=== PATIENT | female | born 1945 | race Caucasian/White ===

== ENCOUNTER → 2017-03-15 | Outpatient (CLI) | payer OTHER ==
[~2017-03-15] MED LIST: ALBU3IS INH; ALBU90OI61 INH; ALPR1 PO; AZIT250 PO; CEFU500T30 PO; DULERA 100 MCG/13 GM INH; IRON 100 PLUS1 EACH PO; LEVFLO500 PO; LEVSOD75 PO; LISI20 PO; OMEPRAZOLE MAGN20 MG PO; Oxybutynin Chlo10 MG PO; PRED20 PO; PRED5 PO; Prinivil10 MG PO; SACC250C PO; SERT50 PO; TYLECOD3 PO
[2017-03-17 14:03] LABS: Stool Occult Bld Immuno 1 Positive (NEGATIVE); Stool Occult Bld Immuno 2 Positive (NEGATIVE)
== END | disposition home or self-care (01) ==
LOC: LAB 07:30
PROVIDERS: Internal Medicine Gastroenterology
DX: D50.9 Iron deficiency anemia, unspecified (principal); Z86.010 Personal history of colon polyps; Z83.71 Family history of colonic polyps
CPT/HCPCS: 82274

== ENCOUNTER 2017-03-21 09:38 | Day surgery (SDC) | payer OTHER ==
[~2017-03-21] VITALS: Ht 154.9 cm; Wt 84.4 kg
[~2017-03-21 09:38] MED LIST changes: -ALBU3IS INH; -AZIT250 PO; -CEFU500T30 PO; -DULERA 100 MCG/13 GM INH; -LEVFLO500 PO; -PRED20 PO; -PRED5 PO; -Prinivil10 MG PO; -SACC250C PO
[2018-01-04] MEDS ORDERED: ALBU3IS INH (15:42)
[2018-01-04] MEDS ORDERED: AZIT250 PO (15:44)
[2018-01-04] MEDS ORDERED: CEFU500T30 PO (15:46)
[2018-01-04] MEDS ORDERED: DULERA 100 MCG/13 GM INH (15:46)
[2018-01-04] MEDS ORDERED: PRED20 PO (15:50)
== END 2017-03-21 12:42 | disposition home or self-care (01) ==
LOC: ORSCSDS 09:38
PROVIDERS: Internal Medicine Gastroenterology
PROC: 0DB88ZX Excision of Small Intestine, Via Natural or Artificial Opening Endoscopic, Diagnostic (ICD-10-PCS; principal; 2017-03-21 11:00)
PROC: 0DB58ZX Excision of Esophagus, Via Natural or Artificial Opening Endoscopic, Diagnostic (ICD-10-PCS; principal; 2017-03-21 11:00)
PROC: 0DJD8ZZ Inspection of Lower Intestinal Tract, Via Natural or Artificial Opening Endoscopic (ICD-10-PCS; principal; 2017-03-21 11:00)
DX: D50.9 Iron deficiency anemia, unspecified (principal); K44.9 Diaphragmatic hernia without obstruction or gangrene; Z86.010 Personal history of colon polyps; K21.9 Gastro-esophageal reflux disease without esophagitis; K57.30 Diverticulosis of large intestine without perforation or abscess without bleeding; Z87.11 Personal history of peptic ulcer disease; R19.5 Other fecal abnormalities; F17.210 Nicotine dependence, cigarettes, uncomplicated; Z79.899 Other long term (current) drug therapy; K29.60 Other gastritis without bleeding
CPT/HCPCS: 87081; 88305; J1980; J7120

== ENCOUNTER → 2017-09-19 | Outpatient (CLI) | payer OTHER ==
[2017-09-21 14:43] LABS: Stool Occult Bld Immuno 1 Negative (NEGATIVE)
[2017-09-21 14:44] LABS: Stool Occult Bld Immuno 2 Positive (NEGATIVE)
== END | disposition home or self-care (01) ==
LOC: LAB 10:04 → LAB SHORT 10:04 → LAB FUT 07-13 10:45 → EDSTATUS 07-13 10:45
PROVIDERS: Internal Medicine Gastroenterology
DX: D50.9 Iron deficiency anemia, unspecified (principal)
CPT/HCPCS: 82274

== ENCOUNTER 2017-10-28 13:36 | Inpatient (IN) | payer OTHER ==
[~2017-10-28] VITALS: Ht 154.9 cm; Wt 95.0 kg
[2017-10-28 14:13] LABS: PCO2 Arterial 50.9 mmHg (35-45); PO2 Arterial 63.7 mmHg (80-100); pH Blood Arterial 7.28 (7.35-7.45)
[2017-10-28 14:16] LABS: Hematocrit 23.5 % (33.0-51.0); Hemoglobin 6.7 g/dL (11.5-16.0); Mean Corpuscular HGB Conc 28.5 g/dL (31.5-36.5); Mean Corpuscular Volume 77 fL (80-100); Mean Platelet Volume 8.7 fL (9.1-12.4); NRBC ABSOLUTE 0.03 K/mm3 (0.00-0.02); NRBC Auto 0.1 /100 WBC (0.0-0.2); Platelet Count 423 K/mm3 (150-400); RDW Coefficient Variation 18.7 % (11.7-14.2); RDW Standard Deviation 52.2 fL (35.1-46.3); Red Blood Cell Count 3.05 M/mm3 (3.80-5.20)
[2017-10-28 14:32] LABS: Alanine Aminotransfer (ALT/SGP 17 U/L (12-78); Albumin, Blood 2.2 g/dL (3.4-5.0); Albumin/Globulin Ratio 0.4 (0.8-1.8); Alk Phos 94 U/L (50-136); Anion Gap 9 mmol/L (6-16); Aspartate Aminotrans (AST/SGOT 14 U/L (12-37); Bilirubin, Total 0.2 mg/dL (0.1-1.0); Blood Urea Nitrogen 58 mg/dL (8-24); Bun/Creatinine Ratio 25.3 (12.0-20.0); CO2, Blood 24 mmol/L (21-32); Calcium, Blood 9.2 mg/dL (8.5-10.1); Chloride, Blood 104 mmol/L (98-108); Creatinine, Blood 2.29 mg/dL (0.40-1.00); Globulin, Blood 5.1 g/dL (2.2-4.0); Glomerular Filtration Rate 22 (60-); Glucose, Blood 179 mg/dL (70-99); Potassium, Blood 5.6 mmol/L (3.5-5.5); Sodium, Blood 137 mmol/L (136-145); Total Protein, Blood 7.3 g/dL (6.4-8.2)
[2017-10-28 14:33] LABS: Influenza A Negative (NEGATIVE); Influenza B Negative (NEGATIVE)
[2017-10-28 14:33] LABS: Troponin I <0.015 ng/mL (0.000-0.040)
[2017-10-28 15:16] LABS: BAND PERCENT MAN 10 % (0-8); BASOPHILS PERCENT MAN 0 % (0-2); EOSINOPHILS PERCENT MAN 0 % (0-6); LYMPHOCYTES ABSOLUTE MAN 0.42 K/mm3 (0.84-5.20); LYMPHOCYTES PERCENT MAN 2 % (21-46); MONOCYTES ABSOLUTE MAN 0.21 K/mm3 (0.16-1.47); MONOCYTES PERCENT MAN 1 % (4-13); NEUTROPHILS ABSOLUTE MAN 20.46 K/mm3 (1.96-9.15); SEG NEUTROPHILS PERCENT MAN 87 % (41-73); TOTAL CELLS COUNTED 100
[2017-10-28] MEDS ORDERED: PRED5 PO (15:28)
[2017-10-28] MEDS ORDERED: Prinivil10 MG PO (15:30)
[2017-10-28 21:40] LABS: Hematocrit 23.7 % (33.0-51.0)
[2017-10-29 01:21] LABS: Bilirubin, Urine Neg (Neg); Blood, Urine Neg (Neg); Glucose Qualitative, Urine Neg (Neg); Ketones, Urine Neg (Neg); Leukocyte Esterase, Urine Neg (Neg); Nitrite, Urine Neg (Neg); Protein, Urine 2+ (Neg); Urobilinogen, Urine NORM (Normal)
[2017-10-29 01:33] LABS: Appearance, Urine Hazy (Clear); Bacteria Few /hpf; Color, Urine Yellow (P-Yellow); Red Blood Cells, Urine Not Seen /hpf (0-2); Squamous Epithelial Cells Few /hpf (Few); White Blood Cells, Urine Rare /hpf (0-5)
[2017-10-29 01:34] LABS: Amorphous Heavy (0-Heavy)
[2017-10-29 04:39] LABS: Hematocrit 24.7 % (33.0-51.0); Hemoglobin 7.2 g/dL (11.5-16.0); Mean Corpuscular HGB 22.7 pg (26.0-34.0); Mean Corpuscular HGB Conc 29.1 g/dL (31.5-36.5); Mean Corpuscular Volume 78 fL (80-100); Mean Platelet Volume 9.1 fL (9.1-12.4); NRBC ABSOLUTE 0.08 K/mm3 (0.00-0.02); NRBC Auto 0.4 /100 WBC (0.0-0.2); Platelet Count 370 K/mm3 (150-400); RDW Coefficient Variation 18.7 % (11.7-14.2); RDW Standard Deviation 52.2 fL (35.1-46.3); Red Blood Cell Count 3.17 M/mm3 (3.80-5.20); White Blood Cell Count 19.62 K/mm3 (4.00-11.30)
[2017-10-29 04:56] LABS: Anion Gap 8 mmol/L (6-16); Blood Urea Nitrogen 51 mg/dL (8-24); Bun/Creatinine Ratio 28.8 (12.0-20.0); CO2, Blood 24 mmol/L (21-32); Calcium, Blood 8.5 mg/dL (8.5-10.1); Chloride, Blood 108 mmol/L (98-108); Creatinine, Blood 1.77 mg/dL (0.40-1.00); Glomerular Filtration Rate 30 (60-); Glucose, Blood 139 mg/dL (70-99); Sodium, Blood 140 mmol/L (136-145); Vancomycin, Random 8.6 ug/mL
[2017-10-29 05:04] LABS: BAND PERCENT MAN 3 % (0-8); BASOPHILS PERCENT MAN 0 % (0-2); EOSINOPHILS PERCENT MAN 0 % (0-6); LYMPHOCYTES % ATYPICAL MANUAL 1 % (0-0); LYMPHOCYTES ABSOLUTE MAN 0.39 K/mm3 (0.84-5.20); LYMPHOCYTES PERCENT MAN 1 % (21-46); MONOCYTES ABSOLUTE MAN 0.39 K/mm3 (0.16-1.47); MONOCYTES PERCENT MAN 2 % (4-13); MYELOCYTE ABSOLUTE MAN 0.39 K/mm3 (0.00-0.00); MYELOCYTE PERCENT MAN 2 % (0-0); NEUTROPHILS ABSOLUTE MAN 18.44 K/mm3 (1.96-9.15); SEG NEUTROPHILS PERCENT MAN 91 % (41-73); TOTAL CELLS COUNTED 100
[2017-10-29 05:28] LABS: PCO2 Arterial 52.4 mmHg (35-45); PO2 Arterial 63.1 mmHg (80-100); pH Blood Arterial 7.28 (7.35-7.45)
[2017-10-30 04:45] LABS: Hemoglobin 7.4 g/dL (11.5-16.0); Mean Corpuscular HGB 23.1 pg (26.0-34.0); Mean Corpuscular HGB Conc 29.6 g/dL (31.5-36.5); Mean Corpuscular Volume 78 fL (80-100); Mean Platelet Volume 8.9 fL (9.1-12.4); NRBC ABSOLUTE 0.06 K/mm3 (0.00-0.02); NRBC Auto 0.3 /100 WBC (0.0-0.2); Platelet Count 357 K/mm3 (150-400); RDW Coefficient Variation 19.1 % (11.7-14.2); RDW Standard Deviation 52.2 fL (35.1-46.3); White Blood Cell Count 21.53 K/mm3 (4.00-11.30)
[2017-10-30 05:08] LABS: Anion Gap 7 mmol/L (6-16); Blood Urea Nitrogen 41 mg/dL (8-24); Bun/Creatinine Ratio 32.8 (12.0-20.0); CO2, Blood 27 mmol/L (21-32); Calcium, Blood 8.6 mg/dL (8.5-10.1); Chloride, Blood 107 mmol/L (98-108); Creatinine, Blood 1.25 mg/dL (0.40-1.00); Glomerular Filtration Rate 45 (60-); Glucose, Blood 135 mg/dL (70-99); Potassium, Blood 3.9 mmol/L (3.5-5.5); Sodium, Blood 141 mmol/L (136-145)
[2017-10-30 05:10] LABS: BAND PERCENT MAN 12 % (0-8); BASOPHILS PERCENT MAN 0 % (0-2); EOSINOPHILS PERCENT MAN 0 % (0-6); LYMPHOCYTES ABSOLUTE MAN 0.21 K/mm3 (0.84-5.20); LYMPHOCYTES PERCENT MAN 1 % (21-46); MONOCYTES PERCENT MAN 0 % (4-13); MYELOCYTE ABSOLUTE MAN 0.21 K/mm3 (0.00-0.00); MYELOCYTE PERCENT MAN 1 % (0-0); NEUTROPHILS ABSOLUTE MAN 21.09 K/mm3 (1.96-9.15); SEG NEUTROPHILS PERCENT MAN 86 % (41-73); TOTAL CELLS COUNTED 100
[2017-10-30 05:15] LABS: Vancomycin, Random 12.2 ug/mL
[2017-10-31 05:58] LABS: Hematocrit 27.8 % (33.0-51.0); Hemoglobin 8.3 g/dL (11.5-16.0); Mean Corpuscular HGB 23.5 pg (26.0-34.0); Mean Corpuscular HGB Conc 29.9 g/dL (31.5-36.5); Mean Corpuscular Volume 79 fL (80-100); Mean Platelet Volume 8.6 fL (9.1-12.4); NRBC ABSOLUTE 0.03 K/mm3 (0.00-0.02); NRBC Auto 0.1 /100 WBC (0.0-0.2); Platelet Count 332 K/mm3 (150-400); RDW Coefficient Variation 20.8 % (11.7-14.2); Red Blood Cell Count 3.53 M/mm3 (3.80-5.20); White Blood Cell Count 21.31 K/mm3 (4.00-11.30)
[2017-10-31 06:16] LABS: Anion Gap 7 mmol/L (6-16); Blood Urea Nitrogen 30 mg/dL (8-24); Bun/Creatinine Ratio 31.2 (12.0-20.0); CO2, Blood 30 mmol/L (21-32); Chloride, Blood 106 mmol/L (98-108); Creatinine, Blood 0.96 mg/dL (0.40-1.00); Glomerular Filtration Rate >60 (60-); Glucose, Blood 122 mg/dL (70-99); Potassium, Blood 3.7 mmol/L (3.5-5.5); Sodium, Blood 143 mmol/L (136-145)
[2017-10-31 06:59] LABS: BAND PERCENT MAN 1 % (0-8); BASOPHILS ABSOLUTE MAN 0.21 K/mm3 (0.00-0.23); BASOPHILS PERCENT MAN 1 % (0-2); EOSINOPHILS PERCENT MAN 0 % (0-6); LYMPHOCYTES ABSOLUTE MAN 0.85 K/mm3 (0.84-5.20); LYMPHOCYTES PERCENT MAN 4 % (21-46); METAMYELOCYTE ABSOLUTE MAN 0.42 K/mm3 (0.00-0.00); METAMYELOCYTE PERCENT MAN 2 % (0-0); MONOCYTES ABSOLUTE MAN 1.06 K/mm3 (0.16-1.47); MONOCYTES PERCENT MAN 5 % (4-13); NEUTROPHILS ABSOLUTE MAN 18.75 K/mm3 (1.96-9.15); SEG NEUTROPHILS PERCENT MAN 87 % (41-73); TOTAL CELLS COUNTED 100
[2017-11-01 04:51] LABS: PCO2 Arterial 54.4 mmHg (35-45); PO2 Arterial 75.9 mmHg (80-100); pH Blood Arterial 7.41 (7.35-7.45)
[2017-11-01 04:56] LABS: Hematocrit 27.1 % (33.0-51.0); Mean Corpuscular HGB 23.5 pg (26.0-34.0); Mean Corpuscular HGB Conc 29.5 g/dL (31.5-36.5); Mean Corpuscular Volume 80 fL (80-100); Mean Platelet Volume 8.9 fL (9.1-12.4); Platelet Count 299 K/mm3 (150-400); RDW Standard Deviation 55.6 fL (35.1-46.3); White Blood Cell Count 16.54 K/mm3 (4.00-11.30)
[2017-11-01 05:14] LABS: Anion Gap 4 mmol/L (6-16); Blood Urea Nitrogen 24 mg/dL (8-24); Bun/Creatinine Ratio 27.6 (12.0-20.0); CO2, Blood 34 mmol/L (21-32); Calcium, Blood 8.6 mg/dL (8.5-10.1); Chloride, Blood 105 mmol/L (98-108); Creatinine, Blood 0.87 mg/dL (0.40-1.00); Glomerular Filtration Rate >60 (60-); Glucose, Blood 111 mg/dL (70-99); Potassium, Blood 3.6 mmol/L (3.5-5.5); Sodium, Blood 143 mmol/L (136-145)
[2017-11-01 05:36] LABS: BAND PERCENT MAN 3 % (0-8); BASOPHILS PERCENT MAN 0 % (0-2); EOSINOPHILS PERCENT MAN 0 % (0-6); LYMPHOCYTES ABSOLUTE MAN 1.65 K/mm3 (0.84-5.20); LYMPHOCYTES PERCENT MAN 10 % (21-46); METAMYELOCYTE ABSOLUTE MAN 0.16 K/mm3 (0.00-0.00); METAMYELOCYTE PERCENT MAN 1 % (0-0); MONOCYTES ABSOLUTE MAN 0.82 K/mm3 (0.16-1.47); MONOCYTES PERCENT MAN 5 % (4-13); MYELOCYTE ABSOLUTE MAN 0.33 K/mm3 (0.00-0.00); MYELOCYTE PERCENT MAN 2 % (0-0); NEUTROPHILS ABSOLUTE MAN 13.56 K/mm3 (1.96-9.15); SEG NEUTROPHILS PERCENT MAN 79 % (41-73); TOTAL CELLS COUNTED 100
[2017-11-01 13:46] LABS: Stool Occult Bld Immuno 1 Positive (NEGATIVE)
[2017-11-02 04:09] LABS: Hematocrit 29.3 % (33.0-51.0); Hemoglobin 8.3 g/dL (11.5-16.0); Mean Corpuscular HGB 22.5 pg (26.0-34.0); Mean Corpuscular HGB Conc 28.3 g/dL (31.5-36.5); Mean Corpuscular Volume 79 fL (80-100); Mean Platelet Volume 9.4 fL (9.1-12.4); Platelet Count 283 K/mm3 (150-400); RDW Coefficient Variation 22.6 % (11.7-14.2); RDW Standard Deviation 56.4 fL (35.1-46.3); Red Blood Cell Count 3.69 M/mm3 (3.80-5.20); White Blood Cell Count 18.01 K/mm3 (4.00-11.30)
[2017-11-02 04:27] LABS: Anion Gap 5 mmol/L (6-16); Blood Urea Nitrogen 19 mg/dL (8-24); Bun/Creatinine Ratio 26.8 (12.0-20.0); CO2, Blood 34 mmol/L (21-32); Calcium, Blood 8.3 mg/dL (8.5-10.1); Chloride, Blood 104 mmol/L (98-108); Creatinine, Blood 0.71 mg/dL (0.40-1.00); Glomerular Filtration Rate >60 (60-); Glucose, Blood 119 mg/dL (70-99); Potassium, Blood 3.6 mmol/L (3.5-5.5); Sodium, Blood 143 mmol/L (136-145)
[2017-11-02 05:09] LABS: BAND PERCENT MAN 4 % (0-8); BASOPHILS PERCENT MAN 0 % (0-2); EOSINOPHILS PERCENT MAN 0 % (0-6); LYMPHOCYTES PERCENT MAN 5 % (21-46); METAMYELOCYTE ABSOLUTE MAN 0.18 K/mm3 (0.00-0.00); METAMYELOCYTE PERCENT MAN 1 % (0-0); MONOCYTES ABSOLUTE MAN 0.72 K/mm3 (0.16-1.47); MONOCYTES PERCENT MAN 4 % (4-13); MYELOCYTE ABSOLUTE MAN 0.18 K/mm3 (0.00-0.00); MYELOCYTE PERCENT MAN 1 % (0-0); NEUTROPHILS ABSOLUTE MAN 16.02 K/mm3 (1.96-9.15); SEG NEUTROPHILS PERCENT MAN 85 % (41-73); TOTAL CELLS COUNTED 100
[2017-11-02 10:15] LABS: International Normalized Ratio 1.59
[2017-11-02 10:21] LABS: Total Protein, Blood 6.4 g/dL (6.4-8.2)
[2017-11-02 12:24] LABS: Automated BF RBC Count 0.003 M/mm3 (0-0); Automated BF WBC Count 7.754 K/mm3 (0-999); Body Fluid WBC Count 7754 /mm3 (0-999); RBC Count, Body Fluid 3000 /mm3 (0-0)
[2017-11-02 12:29] LABS: Glucose, Body Fluid 2 mg/dL; Protein, Body Fluid 4.1 g/dL
[2017-11-02 13:36] LABS: Appearance, Body Fluid Cloudy (Clear); Color, Body Fluid Yellow (None-Yellow); Total Cell Count, Body Fluid 100
[2017-11-02 14:11] LABS: Lactate Dehydrogenase, Body Fl 6054 U/L
[2017-11-03 04:00] LABS: Hematocrit 29.4 % (33.0-51.0); Hemoglobin 8.2 g/dL (11.5-16.0); Mean Corpuscular HGB 23.2 pg (26.0-34.0); Mean Corpuscular HGB Conc 27.9 g/dL (31.5-36.5); Mean Platelet Volume 8.8 fL (9.1-12.4); Platelet Count 248 K/mm3 (150-400); RDW Coefficient Variation 23.1 % (11.7-14.2); RDW Standard Deviation 61.4 fL (35.1-46.3); Red Blood Cell Count 3.53 M/mm3 (3.80-5.20); White Blood Cell Count 17.01 K/mm3 (4.00-11.30)
[2017-11-03 04:04] LABS: Mean Corpuscular Volume 83 fL (80-100)
[2017-11-03 04:17] LABS: Anion Gap 3 mmol/L (6-16); Blood Urea Nitrogen 17 mg/dL (8-24); CO2, Blood 35 mmol/L (21-32); Chloride, Blood 103 mmol/L (98-108); Creatinine, Blood 0.77 mg/dL (0.40-1.00); Glomerular Filtration Rate >60 (60-); Glucose, Blood 138 mg/dL (70-99); Potassium, Blood 3.6 mmol/L (3.5-5.5); Sodium, Blood 141 mmol/L (136-145)
[2017-11-03 04:27] LABS: BAND PERCENT MAN 5 % (0-8); BASOPHILS PERCENT MAN 0 % (0-2); EOSINOPHILS PERCENT MAN 0 % (0-6); LYMPHOCYTES ABSOLUTE MAN 0.51 K/mm3 (0.84-5.20); LYMPHOCYTES PERCENT MAN 3 % (21-46); METAMYELOCYTE ABSOLUTE MAN 0.51 K/mm3 (0.00-0.00); METAMYELOCYTE PERCENT MAN 3 % (0-0); MONOCYTES ABSOLUTE MAN 0.51 K/mm3 (0.16-1.47); MONOCYTES PERCENT MAN 3 % (4-13); MYELOCYTE ABSOLUTE MAN 0.51 K/mm3 (0.00-0.00); MYELOCYTE PERCENT MAN 3 % (0-0); NEUTROPHILS ABSOLUTE MAN 14.96 K/mm3 (1.96-9.15); SEG NEUTROPHILS PERCENT MAN 83 % (41-73); TOTAL CELLS COUNTED 100
[2017-11-04 08:32] LABS: International Normalized Ratio 1.18
[2017-11-04 19:07] LABS: PCO2 Arterial 53.6 mmHg (35-45); PO2 Arterial 68.5 mmHg (80-100); pH Blood Arterial 7.42 (7.35-7.45)
[2017-11-05 04:10] LABS: BASOPHILS ABSOLUTE AUTO 0.02 K/mm3 (0.00-0.23); BASOPHILS PERCENT AUTO 0 % (0-2); EOSINOPHILS ABSOLUTE AUTO 0.01 K/mm3 (0.00-0.68); EOSINOPHILS PERCENT AUTO 0 % (0-6); Hematocrit 26.4 % (33.0-51.0); Hemoglobin 7.6 g/dL (11.5-16.0); IMMATURE GRAN ABSOLUTE AUTO 1.08 K/mm3 (0.00-0.10); IMMATURE GRAN PERCENT AUTO 8 % (0-1); LYMPHOCYTES PERCENT AUTO 4 % (21-46); MONOCYTES ABSOLUTE AUTO 0.52 K/mm3 (0.16-1.47); MONOCYTES PERCENT AUTO 4 % (4-13); Mean Corpuscular HGB 23.8 pg (26.0-34.0); Mean Corpuscular HGB Conc 28.8 g/dL (31.5-36.5); Mean Corpuscular Volume 83 fL (80-100); Mean Platelet Volume 9.8 fL (9.1-12.4); NEUTROPHILS ABSOLUTE AUTO 11.17 K/mm3 (1.96-9.15); NEUTROPHILS PERCENT AUTO 84 % (41-73); Platelet Count 236 K/mm3 (150-400); RDW Coefficient Variation 24.3 % (11.7-14.2); RDW Standard Deviation 67.9 fL (35.1-46.3)
[2017-11-05 04:27] LABS: Anion Gap 4 mmol/L (6-16); Blood Urea Nitrogen 18 mg/dL (8-24); Bun/Creatinine Ratio 23.7 (12.0-20.0); CO2, Blood 34 mmol/L (21-32); Calcium, Blood 7.8 mg/dL (8.5-10.1); Chloride, Blood 104 mmol/L (98-108); Creatinine, Blood 0.76 mg/dL (0.40-1.00); Glomerular Filtration Rate >60 (60-); Glucose, Blood 130 mg/dL (70-99); Magnesium, Blood 1.8 mg/dL (1.6-2.4); Potassium, Blood 3.7 mmol/L (3.5-5.5); Sodium, Blood 142 mmol/L (136-145)
[2017-11-05 04:28] LABS: BAND PERCENT MAN 4 % (0-8); BASOPHILS PERCENT MAN 0 % (0-2); EOSINOPHILS ABSOLUTE MAN 0.13 K/mm3 (0.00-0.68); EOSINOPHILS PERCENT MAN 1 % (0-6); LYMPHOCYTES ABSOLUTE MAN 0.39 K/mm3 (0.84-5.20); LYMPHOCYTES PERCENT MAN 3 % (21-46); METAMYELOCYTE ABSOLUTE MAN 0.26 K/mm3 (0.00-0.00); METAMYELOCYTE PERCENT MAN 2 % (0-0); MONOCYTES ABSOLUTE MAN 0.26 K/mm3 (0.16-1.47); MONOCYTES PERCENT MAN 2 % (4-13); MYELOCYTE ABSOLUTE MAN 0.13 K/mm3 (0.00-0.00); MYELOCYTE PERCENT MAN 1 % (0-0); SEG NEUTROPHILS PERCENT MAN 87 % (41-73); TOTAL CELLS COUNTED 100
[2017-11-05 05:34] LABS: PO2 Arterial 67.6 mmHg (80-100); pH Blood Arterial 7.47 (7.35-7.45)
[2017-11-06 03:36] LABS: BASOPHILS ABSOLUTE AUTO 0.04 K/mm3 (0.00-0.23); BASOPHILS PERCENT AUTO 0 % (0-2); EOSINOPHILS ABSOLUTE AUTO 0.03 K/mm3 (0.00-0.68); EOSINOPHILS PERCENT AUTO 0 % (0-6); Hematocrit 29.9 % (33.0-51.0); Hemoglobin 8.4 g/dL (11.5-16.0); IMMATURE GRAN ABSOLUTE AUTO 1.13 K/mm3 (0.00-0.10); IMMATURE GRAN PERCENT AUTO 9 % (0-1); LYMPHOCYTES ABSOLUTE AUTO 0.53 K/mm3 (0.84-5.20); LYMPHOCYTES PERCENT AUTO 4 % (21-46); MONOCYTES ABSOLUTE AUTO 0.61 K/mm3 (0.16-1.47); MONOCYTES PERCENT AUTO 5 % (4-13); Mean Corpuscular HGB 23.3 pg (26.0-34.0); Mean Corpuscular HGB Conc 28.1 g/dL (31.5-36.5); Mean Corpuscular Volume 83 fL (80-100); Mean Platelet Volume 9.4 fL (9.1-12.4); NEUTROPHILS ABSOLUTE AUTO 10.71 K/mm3 (1.96-9.15); NEUTROPHILS PERCENT AUTO 82 % (41-73); Platelet Count 268 K/mm3 (150-400); RDW Coefficient Variation 25.2 % (11.7-14.2); RDW Standard Deviation 71.8 fL (35.1-46.3); Red Blood Cell Count 3.61 M/mm3 (3.80-5.20); White Blood Cell Count 13.05 K/mm3 (4.00-11.30)
[2017-11-06 03:51] LABS: Anion Gap 7 mmol/L (6-16); Blood Urea Nitrogen 12 mg/dL (8-24); Bun/Creatinine Ratio 18.3 (12.0-20.0); CO2, Blood 32 mmol/L (21-32); Calcium, Blood 7.9 mg/dL (8.5-10.1); Chloride, Blood 104 mmol/L (98-108); Creatinine, Blood 0.66 mg/dL (0.40-1.00); Glomerular Filtration Rate >60 (60-); Glucose, Blood 121 mg/dL (70-99); Magnesium, Blood 1.8 mg/dL (1.6-2.4); Phosphorus, Blood 2.3 mg/dL (2.5-4.9); Potassium, Blood 3.1 mmol/L (3.5-5.5); Sodium, Blood 143 mmol/L (136-145)
[2017-11-06 03:53] LABS: BAND PERCENT MAN 5 % (0-8); BASOPHILS PERCENT MAN 0 % (0-2); EOSINOPHILS PERCENT MAN 0 % (0-6); LYMPHOCYTES ABSOLUTE MAN 0.39 K/mm3 (0.84-5.20); LYMPHOCYTES PERCENT MAN 3 % (21-46); MONOCYTES ABSOLUTE MAN 0.52 K/mm3 (0.16-1.47); MONOCYTES PERCENT MAN 4 % (4-13); NEUTROPHILS ABSOLUTE MAN 12.13 K/mm3 (1.96-9.15); SEG NEUTROPHILS PERCENT MAN 88 % (41-73); TOTAL CELLS COUNTED 100
[2017-11-06 17:19] LABS: Phosphorus, Blood 1.7 mg/dL (2.5-4.9); Potassium, Blood 3.3 mmol/L (3.5-5.5)
[2017-11-07 05:30] LABS: BASOPHILS ABSOLUTE AUTO 0.04 K/mm3 (0.00-0.23); BASOPHILS PERCENT AUTO 0 % (0-2); EOSINOPHILS ABSOLUTE AUTO 0.04 K/mm3 (0.00-0.68); EOSINOPHILS PERCENT AUTO 0 % (0-6); Hematocrit 29.1 % (33.0-51.0); Hemoglobin 8.3 g/dL (11.5-16.0); IMMATURE GRAN ABSOLUTE AUTO 0.83 K/mm3 (0.00-0.10); IMMATURE GRAN PERCENT AUTO 7 % (0-1); LYMPHOCYTES ABSOLUTE AUTO 0.61 K/mm3 (0.84-5.20); LYMPHOCYTES PERCENT AUTO 5 % (21-46); MONOCYTES PERCENT AUTO 6 % (4-13); Mean Corpuscular HGB 23.9 pg (26.0-34.0); Mean Corpuscular HGB Conc 28.5 g/dL (31.5-36.5); Mean Corpuscular Volume 84 fL (80-100); Mean Platelet Volume 9.3 fL (9.1-12.4); NEUTROPHILS PERCENT AUTO 83 % (41-73); Platelet Count 258 K/mm3 (150-400); RDW Coefficient Variation 25.9 % (11.7-14.2); RDW Standard Deviation 75.7 fL (35.1-46.3); Red Blood Cell Count 3.48 M/mm3 (3.80-5.20); White Blood Cell Count 12.82 K/mm3 (4.00-11.30)
[2017-11-07 05:46] LABS: Alanine Aminotransfer (ALT/SGP 7 U/L (12-78); Albumin, Blood 1.8 g/dL (3.4-5.0); Albumin/Globulin Ratio 0.5 (0.8-1.8); Alk Phos 73 U/L (50-136); Anion Gap 5 mmol/L (6-16); Aspartate Aminotrans (AST/SGOT 15 U/L (12-37); Bilirubin, Total 0.3 mg/dL (0.1-1.0); Blood Urea Nitrogen 10 mg/dL (8-24); Bun/Creatinine Ratio 15.2 (12.0-20.0); CO2, Blood 33 mmol/L (21-32); Chloride, Blood 103 mmol/L (98-108); Creatinine, Blood 0.66 mg/dL (0.40-1.00); Globulin, Blood 3.9 g/dL (2.2-4.0); Glomerular Filtration Rate >60 (60-); Glucose, Blood 115 mg/dL (70-99); Potassium, Blood 3.9 mmol/L (3.5-5.5); Sodium, Blood 141 mmol/L (136-145); Total Protein, Blood 5.7 g/dL (6.4-8.2)
[2017-11-08 04:27] LABS: Albumin, Blood 1.7 g/dL (3.4-5.0); Anion Gap 4 mmol/L (6-16); BASOPHILS ABSOLUTE AUTO 0.01 K/mm3 (0.00-0.23); BASOPHILS PERCENT AUTO 0 % (0-2); Blood Urea Nitrogen 12 mg/dL (8-24); CO2, Blood 36 mmol/L (21-32); Calcium, Blood 7.7 mg/dL (8.5-10.1); Chloride, Blood 104 mmol/L (98-108); EOSINOPHILS ABSOLUTE AUTO 0.05 K/mm3 (0.00-0.68); EOSINOPHILS PERCENT AUTO 0 % (0-6); Glomerular Filtration Rate >60 (60-); Glucose, Blood 121 mg/dL (70-99); Hematocrit 26.6 % (33.0-51.0); Hemoglobin 7.6 g/dL (11.5-16.0); IMMATURE GRAN ABSOLUTE AUTO 0.58 K/mm3 (0.00-0.10); IMMATURE GRAN PERCENT AUTO 5 % (0-1); LYMPHOCYTES ABSOLUTE AUTO 0.62 K/mm3 (0.84-5.20); LYMPHOCYTES PERCENT AUTO 5 % (21-46); MONOCYTES ABSOLUTE AUTO 0.47 K/mm3 (0.16-1.47); MONOCYTES PERCENT AUTO 4 % (4-13); Mean Corpuscular HGB 23.8 pg (26.0-34.0); Mean Corpuscular HGB Conc 28.6 g/dL (31.5-36.5); Mean Corpuscular Volume 83 fL (80-100); Mean Platelet Volume 9.8 fL (9.1-12.4); NEUTROPHILS ABSOLUTE AUTO 9.95 K/mm3 (1.96-9.15); NEUTROPHILS PERCENT AUTO 85 % (41-73); Phosphorus, Blood 2.4 mg/dL (2.5-4.9); Platelet Count 254 K/mm3 (150-400); Potassium, Blood 3.7 mmol/L (3.5-5.5); RDW Coefficient Variation 26.4 % (11.7-14.2); Red Blood Cell Count 3.19 M/mm3 (3.80-5.20); Sodium, Blood 144 mmol/L (136-145); White Blood Cell Count 11.68 K/mm3 (4.00-11.30)
[2017-11-08 04:59] LABS: BAND PERCENT MAN 1 % (0-8); BASOPHILS PERCENT MAN 0 % (0-2); EOSINOPHILS PERCENT MAN 0 % (0-6); LYMPHOCYTES ABSOLUTE MAN 0.58 K/mm3 (0.84-5.20); LYMPHOCYTES PERCENT MAN 5 % (21-46); METAMYELOCYTE ABSOLUTE MAN 0.11 K/mm3 (0.00-0.00); METAMYELOCYTE PERCENT MAN 1 % (0-0); MONOCYTES ABSOLUTE MAN 0.35 K/mm3 (0.16-1.47); MONOCYTES PERCENT MAN 3 % (4-13); NEUTROPHILS ABSOLUTE MAN 10.62 K/mm3 (1.96-9.15); SEG NEUTROPHILS PERCENT MAN 90 % (41-73); TOTAL CELLS COUNTED 100
[2017-11-09 06:04] LABS: BASOPHILS ABSOLUTE AUTO 0.02 K/mm3 (0.00-0.23); BASOPHILS PERCENT AUTO 0 % (0-2); EOSINOPHILS ABSOLUTE AUTO 0.17 K/mm3 (0.00-0.68); EOSINOPHILS PERCENT AUTO 1 % (0-6); Hematocrit 29.2 % (33.0-51.0); Hemoglobin 8.1 g/dL (11.5-16.0); IMMATURE GRAN ABSOLUTE AUTO 0.56 K/mm3 (0.00-0.10); IMMATURE GRAN PERCENT AUTO 5 % (0-1); LYMPHOCYTES ABSOLUTE AUTO 0.84 K/mm3 (0.84-5.20); LYMPHOCYTES PERCENT AUTO 7 % (21-46); MONOCYTES ABSOLUTE AUTO 0.73 K/mm3 (0.16-1.47); MONOCYTES PERCENT AUTO 6 % (4-13); Mean Corpuscular HGB 24.3 pg (26.0-34.0); Mean Corpuscular HGB Conc 27.7 g/dL (31.5-36.5); Mean Platelet Volume 9.1 fL (9.1-12.4); NEUTROPHILS ABSOLUTE AUTO 9.62 K/mm3 (1.96-9.15); NEUTROPHILS PERCENT AUTO 81 % (41-73); Platelet Count 262 K/mm3 (150-400); RDW Coefficient Variation 26.9 % (11.7-14.2); RDW Standard Deviation 82.9 fL (35.1-46.3); Red Blood Cell Count 3.34 M/mm3 (3.80-5.20); White Blood Cell Count 11.94 K/mm3 (4.00-11.30)
[2017-11-09 06:19] LABS: Albumin, Blood 1.9 g/dL (3.4-5.0); Anion Gap 6 mmol/L (6-16); Blood Urea Nitrogen 11 mg/dL (8-24); Bun/Creatinine Ratio 15.6 (12.0-20.0); CO2, Blood 33 mmol/L (21-32); Calcium, Blood 8.3 mg/dL (8.5-10.1); Chloride, Blood 105 mmol/L (98-108); Creatinine, Blood 0.71 mg/dL (0.40-1.00); Glomerular Filtration Rate >60 (60-); Glucose, Blood 81 mg/dL (70-99); Phosphorus, Blood 2.1 mg/dL (2.5-4.9); Potassium, Blood 3.4 mmol/L (3.5-5.5); Sodium, Blood 144 mmol/L (136-145)
[2017-11-09 06:22] LABS: Mean Corpuscular Volume 87 fL (80-100)
[2017-11-10 05:09] LABS: BASOPHILS ABSOLUTE AUTO 0.01 K/mm3 (0.00-0.23); BASOPHILS PERCENT AUTO 0 % (0-2); EOSINOPHILS ABSOLUTE AUTO 0.06 K/mm3 (0.00-0.68); EOSINOPHILS PERCENT AUTO 1 % (0-6); Hematocrit 28.4 % (33.0-51.0); IMMATURE GRAN PERCENT AUTO 3 % (0-1); LYMPHOCYTES ABSOLUTE AUTO 0.77 K/mm3 (0.84-5.20); LYMPHOCYTES PERCENT AUTO 7 % (21-46); MONOCYTES ABSOLUTE AUTO 0.61 K/mm3 (0.16-1.47); MONOCYTES PERCENT AUTO 5 % (4-13); Mean Corpuscular HGB 24.4 pg (26.0-34.0); Mean Corpuscular HGB Conc 28.2 g/dL (31.5-36.5); Mean Corpuscular Volume 87 fL (80-100); Mean Platelet Volume 9.1 fL (9.1-12.4); NEUTROPHILS ABSOLUTE AUTO 9.97 K/mm3 (1.96-9.15); NEUTROPHILS PERCENT AUTO 85 % (41-73); Platelet Count 252 K/mm3 (150-400); RDW Coefficient Variation 27.3 % (11.7-14.2); RDW Standard Deviation 83.8 fL (35.1-46.3); Red Blood Cell Count 3.28 M/mm3 (3.80-5.20); White Blood Cell Count 11.72 K/mm3 (4.00-11.30)
[2017-11-10 05:25] LABS: Albumin, Blood 1.9 g/dL (3.4-5.0); Anion Gap 5 mmol/L (6-16); Blood Urea Nitrogen 11 mg/dL (8-24); Bun/Creatinine Ratio 14.8 (12.0-20.0); CO2, Blood 36 mmol/L (21-32); Chloride, Blood 100 mmol/L (98-108); Creatinine, Blood 0.74 mg/dL (0.40-1.00); Glomerular Filtration Rate >60 (60-); Glucose, Blood 98 mg/dL (70-99); Phosphorus, Blood 2.4 mg/dL (2.5-4.9); Potassium, Blood 3.7 mmol/L (3.5-5.5); Sodium, Blood 141 mmol/L (136-145)
[2017-11-11 05:44] LABS: BASOPHILS ABSOLUTE AUTO 0.01 K/mm3 (0.00-0.23); BASOPHILS PERCENT AUTO 0 % (0-2); EOSINOPHILS PERCENT AUTO 1 % (0-6); Hematocrit 26.9 % (33.0-51.0); Hemoglobin 7.6 g/dL (11.5-16.0); IMMATURE GRAN ABSOLUTE AUTO 0.39 K/mm3 (0.00-0.10); IMMATURE GRAN PERCENT AUTO 4 % (0-1); LYMPHOCYTES ABSOLUTE AUTO 0.96 K/mm3 (0.84-5.20); LYMPHOCYTES PERCENT AUTO 10 % (21-46); MONOCYTES ABSOLUTE AUTO 0.62 K/mm3 (0.16-1.47); MONOCYTES PERCENT AUTO 6 % (4-13); Mean Corpuscular HGB 24.5 pg (26.0-34.0); Mean Corpuscular HGB Conc 28.3 g/dL (31.5-36.5); Mean Corpuscular Volume 87 fL (80-100); Mean Platelet Volume 9.4 fL (9.1-12.4); NEUTROPHILS ABSOLUTE AUTO 7.55 K/mm3 (1.96-9.15); NEUTROPHILS PERCENT AUTO 79 % (41-73); Platelet Count 269 K/mm3 (150-400); RDW Coefficient Variation 27.5 % (11.7-14.2); RDW Standard Deviation 84.5 fL (35.1-46.3); White Blood Cell Count 9.63 K/mm3 (4.00-11.30)
[2017-11-11 06:01] LABS: Anion Gap 4 mmol/L (6-16); Blood Urea Nitrogen 13 mg/dL (8-24); CO2, Blood 35 mmol/L (21-32); Chloride, Blood 103 mmol/L (98-108); Creatinine, Blood 0.76 mg/dL (0.40-1.00); Glomerular Filtration Rate >60 (60-); Glucose, Blood 85 mg/dL (70-99); Potassium, Blood 3.6 mmol/L (3.5-5.5); Sodium, Blood 142 mmol/L (136-145)
[2017-11-13 05:54] LABS: BASOPHILS ABSOLUTE AUTO 0.02 K/mm3 (0.00-0.23); BASOPHILS PERCENT AUTO 0 % (0-2); EOSINOPHILS ABSOLUTE AUTO 0.07 K/mm3 (0.00-0.68); EOSINOPHILS PERCENT AUTO 1 % (0-6); Hematocrit 31.5 % (33.0-51.0); Hemoglobin 9.2 g/dL (11.5-16.0); IMMATURE GRAN ABSOLUTE AUTO 0.31 K/mm3 (0.00-0.10); IMMATURE GRAN PERCENT AUTO 4 % (0-1); LYMPHOCYTES ABSOLUTE AUTO 0.94 K/mm3 (0.84-5.20); LYMPHOCYTES PERCENT AUTO 11 % (21-46); MONOCYTES ABSOLUTE AUTO 0.46 K/mm3 (0.16-1.47); MONOCYTES PERCENT AUTO 6 % (4-13); Mean Corpuscular HGB 25.3 pg (26.0-34.0); Mean Corpuscular HGB Conc 29.2 g/dL (31.5-36.5); Mean Corpuscular Volume 87 fL (80-100); Mean Platelet Volume 9.1 fL (9.1-12.4); NEUTROPHILS ABSOLUTE AUTO 6.59 K/mm3 (1.96-9.15); NEUTROPHILS PERCENT AUTO 79 % (41-73); NRBC ABSOLUTE 0.02 K/mm3 (0.00-0.02); NRBC Auto 0.2 /100 WBC (0.0-0.2); Platelet Count 266 K/mm3 (150-400); RDW Coefficient Variation 27.1 % (11.7-14.2); Red Blood Cell Count 3.64 M/mm3 (3.80-5.20); White Blood Cell Count 8.39 K/mm3 (4.00-11.30)
[2017-11-13 06:14] LABS: Albumin, Blood 2.2 g/dL (3.4-5.0); Anion Gap 5 mmol/L (6-16); Blood Urea Nitrogen 11 mg/dL (8-24); Bun/Creatinine Ratio 14.2 (12.0-20.0); CO2, Blood 35 mmol/L (21-32); Calcium, Blood 8.5 mg/dL (8.5-10.1); Chloride, Blood 102 mmol/L (98-108); Creatinine, Blood 0.78 mg/dL (0.40-1.00); Glomerular Filtration Rate >60 (60-); Glucose, Blood 75 mg/dL (70-99); Phosphorus, Blood 2.7 mg/dL (2.5-4.9); Potassium, Blood 3.7 mmol/L (3.5-5.5); Sodium, Blood 142 mmol/L (136-145)
[2017-11-13] MEDS ORDERED: PRED5 PO (11:51)
[2017-11-13] MEDS ORDERED: LEVFLO500 PO (11:52)
== END 2017-11-13 14:36 | disposition home or self-care (01) | DRG 853 ==
LOC: ER 13:36 → ICUW 14:55 → ICUE 14:55 → SURS 11-08 16:00
PROVIDERS: Emergency Medicine; Family Medicine; Internal Medicine; Internal Medicine Critical Care Medicine; Student in an Organized Health Care Education/Training Program
PROC: 5A09357 Assistance with Respiratory Ventilation, Less than 24 Consecutive Hours, Continuous Positive Airway Pressure (ICD-10-PCS; principal; 2017-10-28)
PROC: 0W9B3ZZ Drainage of Left Pleural Cavity, Percutaneous Approach (ICD-10-PCS; 2017-11-02)
PROC: 0BNJ4ZZ Release Left Lower Lung Lobe, Percutaneous Endoscopic Approach (ICD-10-PCS; 2017-11-04)
PROC: 30233N1 Transfusion of Nonautologous Red Blood Cells into Peripheral Vein, Percutaneous Approach (ICD-10-PCS; 2017-11-12)
DX: A41.9 Sepsis, unspecified organism (principal); J96.22 Acute and chronic respiratory failure with hypercapnia; J15.211 Pneumonia due to Methicillin susceptible Staphylococcus aureus; R65.21 Severe sepsis with septic shock; D62 Acute posthemorrhagic anemia; N17.9 Acute kidney failure, unspecified; J90 Pleural effusion, not elsewhere classified; E87.2 Acidosis; J98.11 Atelectasis; J44.1 Chronic obstructive pulmonary disease with (acute) exacerbation; J44.0 Chronic obstructive pulmonary disease with (acute) lower respiratory infection; Z90.11 Acquired absence of right breast and nipple; Z98.1 Arthrodesis status; Z87.01 Personal history of pneumonia (recurrent); J44.9 Chronic obstructive pulmonary disease, unspecified; M19.90 Unspecified osteoarthritis, unspecified site; M81.0 Age-related osteoporosis without current pathological fracture; E03.9 Hypothyroidism, unspecified; F17.210 Nicotine dependence, cigarettes, uncomplicated; E78.00 Pure hypercholesterolemia, unspecified; Z92.3 Personal history of irradiation; M06.9 Rheumatoid arthritis, unspecified; M10.9 Gout, unspecified; B96.3 Hemophilus influenzae [H. influenzae] as the cause of diseases classified elsewhere; B96.89 Other specified bacterial agents as the cause of diseases classified elsewhere; R33.9 Retention of urine, unspecified; E66.3 Overweight; Z68.27 Body mass index [BMI] 27.0-27.9, adult; Z99.81 Dependence on supplemental oxygen
CPT/HCPCS: 31720; 32554; 32555; 36415; 36430; 36569; 36600; 51703; 71045; 71046; 71250; 76604; 80048; 80053; 80069; 80202; 81001; 82274; 82803; 82945; 83605; 83615; 83735; 83880; 84100; 84132; 84155; 84157; 84484; 85014; 85018; 85025; 85610; 85730; 86850; 86900; 86901; 86923; 87040; 87070; 87071; 87075; 87077; 87185; 87186; 87205; 87804; 88108; 88305; 89051; 93005; 93010; 94002; 94003; 94640; 94660; 94667; 94760; 94761; 96365; 96375; 97110; 97116; 97162; 97166; 97530; 97535; 99285-25; C1751; G8978; G8979; G8987; G8988; J0330; J0360; J0690; J1644; J1720; J1940; J1956; J2001; J2370; J2543; J2916; J2930; J3010; J3370; J7030; J7060; J7120; P9016; P9041

== ENCOUNTER 2017-12-13 14:13 | Inpatient (IN) | payer OTHER ==
[~2017-12-13] VITALS: Ht 154.9 cm; Wt 84.5 kg
[~2017-12-13 14:13] MED LIST changes: +LEVFLO500 PO; +PRED5 PO; +Prinivil10 MG PO
[2017-12-13 15:05] LABS: PCO2 Arterial 62.2 mmHg (35-45); PO2 Arterial 83.4 mmHg (80-100); pH Blood Arterial 7.42 (7.35-7.45)
[2017-12-13 15:26] LABS: BASOPHILS ABSOLUTE AUTO 0.02 K/mm3 (0.00-0.23); BASOPHILS PERCENT AUTO 0 % (0-2); EOSINOPHILS ABSOLUTE AUTO 0.08 K/mm3 (0.00-0.68); EOSINOPHILS PERCENT AUTO 1 % (0-6); Hemoglobin 9.9 g/dL (11.5-16.0); IMMATURE GRAN ABSOLUTE AUTO 0.13 K/mm3 (0.00-0.10); IMMATURE GRAN PERCENT AUTO 2 % (0-1); LYMPHOCYTES ABSOLUTE AUTO 0.64 K/mm3 (0.84-5.20); LYMPHOCYTES PERCENT AUTO 8 % (21-46); MONOCYTES ABSOLUTE AUTO 0.77 K/mm3 (0.16-1.47); MONOCYTES PERCENT AUTO 10 % (4-13); Mean Corpuscular HGB 26.3 pg (26.0-34.0); Mean Corpuscular HGB Conc 29.1 g/dL (31.5-36.5); Mean Corpuscular Volume 90 fL (80-100); Mean Platelet Volume 8.6 fL (9.1-12.4); NEUTROPHILS ABSOLUTE AUTO 6.31 K/mm3 (1.96-9.15); NEUTROPHILS PERCENT AUTO 79 % (41-73); Platelet Count 260 K/mm3 (150-400); RDW Coefficient Variation 20.5 % (11.7-14.2); RDW Standard Deviation 68.2 fL (35.1-46.3); Red Blood Cell Count 3.77 M/mm3 (3.80-5.20); White Blood Cell Count 7.95 K/mm3 (4.00-11.30)
[2017-12-13 15:50] LABS: Alanine Aminotransfer (ALT/SGP 11 U/L (12-78); Albumin, Blood 2.6 g/dL (3.4-5.0); Albumin/Globulin Ratio 0.5 (0.8-1.8); Alk Phos 80 U/L (50-136); Anion Gap 6 mmol/L (6-16); Aspartate Aminotrans (AST/SGOT 9 U/L (12-37); Bilirubin, Total 0.3 mg/dL (0.1-1.0); Blood Urea Nitrogen 13 mg/dL (8-24); Bun/Creatinine Ratio 19.8 (12.0-20.0); CO2, Blood 36 mmol/L (21-32); Calcium, Blood 9.4 mg/dL (8.5-10.1); Chloride, Blood 96 mmol/L (98-108); Creatinine, Blood 0.66 mg/dL (0.40-1.00); Globulin, Blood 4.8 g/dL (2.2-4.0); Glomerular Filtration Rate >60 (60-); Glucose, Blood 116 mg/dL (70-99); Potassium, Blood 3.9 mmol/L (3.5-5.5); Sodium, Blood 138 mmol/L (136-145); Total Protein, Blood 7.4 g/dL (6.4-8.2); Troponin I <0.015 ng/mL (0.000-0.040)
[2017-12-14 03:59] LABS: BASOPHILS ABSOLUTE AUTO 0.01 K/mm3 (0.00-0.23); BASOPHILS PERCENT AUTO 0 % (0-2); EOSINOPHILS PERCENT AUTO 0 % (0-6); Hematocrit 32.6 % (33.0-51.0); Hemoglobin 9.5 g/dL (11.5-16.0); IMMATURE GRAN ABSOLUTE AUTO 0.09 K/mm3 (0.00-0.10); IMMATURE GRAN PERCENT AUTO 2 % (0-1); LYMPHOCYTES ABSOLUTE AUTO 0.25 K/mm3 (0.84-5.20); LYMPHOCYTES PERCENT AUTO 4 % (21-46); MONOCYTES ABSOLUTE AUTO 0.16 K/mm3 (0.16-1.47); MONOCYTES PERCENT AUTO 3 % (4-13); Mean Corpuscular HGB 25.7 pg (26.0-34.0); Mean Corpuscular HGB Conc 29.1 g/dL (31.5-36.5); Mean Corpuscular Volume 88 fL (80-100); Mean Platelet Volume 9.6 fL (9.1-12.4); NEUTROPHILS ABSOLUTE AUTO 5.41 K/mm3 (1.96-9.15); NEUTROPHILS PERCENT AUTO 91 % (41-73); Platelet Count 266 K/mm3 (150-400); RDW Coefficient Variation 20.2 % (11.7-14.2); RDW Standard Deviation 65.4 fL (35.1-46.3); White Blood Cell Count 5.92 K/mm3 (4.00-11.30)
[2017-12-14 04:22] LABS: Anion Gap 6 mmol/L (6-16); Blood Urea Nitrogen 14 mg/dL (8-24); Bun/Creatinine Ratio 22.7 (12.0-20.0); CO2, Blood 35 mmol/L (21-32); Calcium, Blood 9.5 mg/dL (8.5-10.1); Chloride, Blood 98 mmol/L (98-108); Creatinine, Blood 0.62 mg/dL (0.40-1.00); Glomerular Filtration Rate >60 (60-); Glucose, Blood 172 mg/dL (70-99); Potassium, Blood 4.2 mmol/L (3.5-5.5); Sodium, Blood 139 mmol/L (136-145)
[2017-12-14 05:38] LABS: PCO2 Arterial 63.8 mmHg (35-45); PO2 Arterial 88.6 mmHg (80-100)
[2017-12-15 04:05] LABS: BASOPHILS ABSOLUTE AUTO 0.01 K/mm3 (0.00-0.23); BASOPHILS PERCENT AUTO 0 % (0-2); EOSINOPHILS ABSOLUTE AUTO 0.02 K/mm3 (0.00-0.68); EOSINOPHILS PERCENT AUTO 0 % (0-6); Hemoglobin 9.4 g/dL (11.5-16.0); IMMATURE GRAN ABSOLUTE AUTO 0.18 K/mm3 (0.00-0.10); IMMATURE GRAN PERCENT AUTO 1 % (0-1); LYMPHOCYTES ABSOLUTE AUTO 0.74 K/mm3 (0.84-5.20); LYMPHOCYTES PERCENT AUTO 6 % (21-46); MONOCYTES ABSOLUTE AUTO 0.96 K/mm3 (0.16-1.47); MONOCYTES PERCENT AUTO 8 % (4-13); Mean Corpuscular HGB 26.1 pg (26.0-34.0); Mean Corpuscular HGB Conc 29.4 g/dL (31.5-36.5); Mean Corpuscular Volume 89 fL (80-100); Mean Platelet Volume 9.3 fL (9.1-12.4); NEUTROPHILS ABSOLUTE AUTO 10.63 K/mm3 (1.96-9.15); NEUTROPHILS PERCENT AUTO 85 % (41-73); Platelet Count 335 K/mm3 (150-400); RDW Coefficient Variation 20.7 % (11.7-14.2); RDW Standard Deviation 67.8 fL (35.1-46.3); White Blood Cell Count 12.54 K/mm3 (4.00-11.30)
[2017-12-15 04:25] LABS: Anion Gap 5 mmol/L (6-16); Blood Urea Nitrogen 18 mg/dL (8-24); CO2, Blood 37 mmol/L (21-32); Calcium, Blood 9.6 mg/dL (8.5-10.1); Chloride, Blood 99 mmol/L (98-108); Creatinine, Blood 0.78 mg/dL (0.40-1.00); Glomerular Filtration Rate >60 (60-); Glucose, Blood 110 mg/dL (70-99); Potassium, Blood 4.1 mmol/L (3.5-5.5); Sodium, Blood 141 mmol/L (136-145)
[2017-12-17 06:21] LABS: Hematocrit 33.5 % (33.0-51.0); Hemoglobin 9.6 g/dL (11.5-16.0); Mean Corpuscular HGB 25.9 pg (26.0-34.0); Mean Corpuscular HGB Conc 28.7 g/dL (31.5-36.5); Mean Corpuscular Volume 91 fL (80-100); Mean Platelet Volume 8.9 fL (9.1-12.4); Platelet Count 316 K/mm3 (150-400); RDW Coefficient Variation 20.4 % (11.7-14.2); RDW Standard Deviation 68.1 fL (35.1-46.3); White Blood Cell Count 7.21 K/mm3 (4.00-11.30)
[2017-12-17 06:42] LABS: BAND PERCENT MAN 1 % (0-8); BASOPHILS ABSOLUTE MAN 0.07 K/mm3 (0.00-0.23); BASOPHILS PERCENT MAN 1 % (0-2); EOSINOPHILS ABSOLUTE MAN 0.21 K/mm3 (0.00-0.68); EOSINOPHILS PERCENT MAN 3 % (0-6); LYMPHOCYTES ABSOLUTE MAN 0.64 K/mm3 (0.84-5.20); LYMPHOCYTES PERCENT MAN 9 % (21-46); MONOCYTES PERCENT MAN 7 % (4-13); NEUTROPHILS ABSOLUTE MAN 5.76 K/mm3 (1.96-9.15); SEG NEUTROPHILS PERCENT MAN 79 % (41-73); TOTAL CELLS COUNTED 100
[2017-12-17 06:45] LABS: Anion Gap 5 mmol/L (6-16); Blood Urea Nitrogen 14 mg/dL (8-24); Bun/Creatinine Ratio 16.4 (12.0-20.0); CO2, Blood 39 mmol/L (21-32); Calcium, Blood 9.4 mg/dL (8.5-10.1); Chloride, Blood 97 mmol/L (98-108); Creatinine, Blood 0.85 mg/dL (0.40-1.00); Glomerular Filtration Rate >60 (60-); Glucose, Blood 80 mg/dL (70-99); Potassium, Blood 3.6 mmol/L (3.5-5.5); Sodium, Blood 141 mmol/L (136-145)
[2017-12-18 05:20] LABS: IMMATURE RETIC FRACTION 15.2 % (2.3-16.0); RETIC HGB EQUIVALENT 26.9 pg (28.20-36.60); RETICULOCYTE COUNT PERCENT 1.61 % (0.50-2.50)
[2017-12-19 05:21] LABS: PCO2 Arterial 70.9 mmHg (35-45); PO2 Arterial 82.2 mmHg (80-100); pH Blood Arterial 7.36 (7.35-7.45)
[2017-12-19] MEDS ORDERED: SACC250C PO (15:37)
[2017-12-19] MEDS ORDERED: LEVFLO500 PO (15:38)
== END 2017-12-19 17:14 | disposition home or self-care (01) | DRG 193 ==
LOC: ER 14:13 → PCU 18:28 → MEDS 12-17 15:21
PROVIDERS: Family Medicine; Internal Medicine; Internal Medicine Critical Care Medicine; Physician Assistant
DX: J18.9 Pneumonia, unspecified organism (principal); J96.21 Acute and chronic respiratory failure with hypoxia; J96.22 Acute and chronic respiratory failure with hypercapnia; J44.0 Chronic obstructive pulmonary disease with (acute) lower respiratory infection; Z87.01 Personal history of pneumonia (recurrent); Z99.81 Dependence on supplemental oxygen; M81.0 Age-related osteoporosis without current pathological fracture; E78.5 Hyperlipidemia, unspecified; Z87.891 Personal history of nicotine dependence; D64.9 Anemia, unspecified; I10 Essential (primary) hypertension; M40.209 Unspecified kyphosis, site unspecified; E66.9 Obesity, unspecified; Z68.36 Body mass index [BMI] 36.0-36.9, adult
CPT/HCPCS: 36415; 36600; 71045; 71046; 71260; 80048; 80053; 82803; 83880; 84484; 85025; 85027; 85045; 86850; 86900; 86901; 87070; 87205; 93005; 93010; 94010; 94640; 94644; 94660; 94760; 94762; 96365; 96375; 97161; 99285-25; C9113; G8978; G8979; G8980; J0713; J1650; J1956; J2930; Q9967

== ENCOUNTER 2018-02-22 10:33 | Inpatient (IN) | payer OTHER ==
[~2018-02-22] VITALS: Ht 154.9 cm; Wt 87.8 kg
[~2018-02-22 10:33] MED LIST changes: +ALBU3IS INH; +AZIT250 PO; +CEFU500T30 PO; +DULERA 100 MCG/13 GM INH; +PRED20 PO; +SACC250C PO
[2018-02-22 11:18] LABS: BASOPHILS ABSOLUTE AUTO 0.02 K/mm3 (0.00-0.23); BASOPHILS PERCENT AUTO 0 % (0-2); EOSINOPHILS ABSOLUTE AUTO 0.08 K/mm3 (0.00-0.68); EOSINOPHILS PERCENT AUTO 1 % (0-6); Hematocrit 24.9 % (33.0-51.0); Hemoglobin 6.9 g/dL (11.5-16.0); IMMATURE GRAN ABSOLUTE AUTO 0.15 K/mm3 (0.00-0.10); IMMATURE GRAN PERCENT AUTO 1 % (0-1); LYMPHOCYTES ABSOLUTE AUTO 0.31 K/mm3 (0.84-5.20); LYMPHOCYTES PERCENT AUTO 2 % (21-46); MONOCYTES ABSOLUTE AUTO 0.94 K/mm3 (0.16-1.47); MONOCYTES PERCENT AUTO 6 % (4-13); Mean Corpuscular HGB 22.9 pg (26.0-34.0); Mean Corpuscular HGB Conc 27.7 g/dL (31.5-36.5); Mean Platelet Volume 8.4 fL (9.1-12.4); NEUTROPHILS ABSOLUTE AUTO 14.65 K/mm3 (1.96-9.15); NEUTROPHILS PERCENT AUTO 91 % (41-73); Platelet Count 328 K/mm3 (150-400); RDW Coefficient Variation 18.8 % (11.7-14.2); RDW Standard Deviation 56.6 fL (35.1-46.3); Red Blood Cell Count 3.01 M/mm3 (3.80-5.20); White Blood Cell Count 16.15 K/mm3 (4.00-11.30)
[2018-02-22 11:21] LABS: Mean Corpuscular Volume 83 fL (80-100)
[2018-02-22 11:38] LABS: Alanine Aminotransfer (ALT/SGP 12 U/L (12-78); Albumin, Blood 2.6 g/dL (3.4-5.0); Albumin/Globulin Ratio 0.6 (0.8-1.8); Alk Phos 94 U/L (50-136); Anion Gap 4 mmol/L (6-16); Aspartate Aminotrans (AST/SGOT 8 U/L (12-37); Bilirubin, Total 0.4 mg/dL (0.1-1.0); Blood Urea Nitrogen 12 mg/dL (8-24); Bun/Creatinine Ratio 17.2 (12.0-20.0); CO2, Blood 34 mmol/L (21-32); Calcium, Blood 9.2 mg/dL (8.5-10.1); Chloride, Blood 97 mmol/L (98-108); Globulin, Blood 4.6 g/dL (2.2-4.0); Glomerular Filtration Rate >60 (60-); Glucose, Blood 131 mg/dL (70-99); Potassium, Blood 4.2 mmol/L (3.5-5.5); Sodium, Blood 135 mmol/L (136-145); Total Protein, Blood 7.2 g/dL (6.4-8.2); Troponin I 0.018 ng/mL (0.000-0.040)
--- NOTE | 2018-02-22 17:28 | NUR ---
SPOKE WITH DR. LOBO, INSTRUCTED TO HOLD 1800 DOSE OF LASIX TONIGHT BUT GIVE 40MG DOSE OF LASIX BETWEEN UNITS OF BLOOD.
--- NOTE | 2018-02-23 01:24 | NUR ---
02/22/182027 IV 18G RAC WNL,SITE IS PATENT
--- NOTE | 2018-02-23 01:26 | NUR ---
02/22/182027 PT LYING IN BED, REPORTS A LITTLE SOB THAT INCREASES WITH EXERTION, ON 3L O2 NC AT 92%. REPORTS PAIN IN L SIDE, WILL GIVE TYLENOL #3 AND EVAL FOR EFFECT. NO OTHER APPARENT SIGNS OF DISTRESS. CALL LIGHT IS IN REACH. O2 IS HUMIDIFIED.
[2018-02-23 01:31] LABS: Stool Occult Blood Guaiac 1 Pos (Neg)
--- NOTE | 2018-02-23 01:59 | NUR ---
02/22/18 2346 PT LYING IN BED, AWAKE, 2ND UNIT OF BLOOD ALMOST FINISHED. PT DENIES NEED FOR ANYTHING AT THIS TIME. NO APPARENT SIGNS OF DISTRESS. CALL LIGHT IS IN REACH.
--- NOTE | 2018-02-23 02:00 | NUR ---
PT LYING IN BED, EYES CLOSED, APPEARS TO BE RESTING. BREATHING IS EVEN, UNLABORED. NO APPARENT SIGNS OF DISTRESS. CALL LIGHT IS IN REACH.
--- NOTE | 2018-02-23 03:33 | NUR ---
PT LYING IN BED, EYES CLOSED, APPEARS TO BE RESTING. BREATHING IS EVEN, UNLABORED. NO APPARENT SIGNS OF DISTRESS. CALL LIGHT IS IN REACH.
--- NOTE | 2018-02-23 03:40 | NUR ---
PT IS AAO X 4, ON 3L O2 NC HUMIDIFIED AT 92%. REPORTS A LITTLE SOB THAT INCREASES WITH EXERTION. PAIN IN L SIDE, GOT TYLENOL #3 AT HS. GOT 2 UNITS BLOOD, HGB WAS 6.9, ANOTHER LAB WITH BE DONE IN THE AM. PT HAD 1 VERY SMALL BLACK STOOL FOR THIS SHIFT THAT WAS SENT TO LAB AND WAS + FOR BLOOD.
--- NOTE | 2018-02-23 04:17 | NUR ---
HAD TO REDOCUMENT THE PATIENT'S IV'S, THE PATIENT HAD AND 18G IV PLACED IN HER RAC BY ER 02/22/18 AT 1112, I RECODUMENTED THIS FOR NOW SO THAT IT WOULD SHOW UP FOR THE NEXT ASSESSMENT, THERE IS A GLITCH AND IF YOU BACK DOCUMENT IT WILL NOT SHOW UP WHEN YOU GO TO DO AN ASSESSMENT ON THE IV. I CHARTED THE OTHER IV'S NOT NEEDED SO THAT WE COULD GET THEM OFF OF THE PATIENT'S RECORD, THIS PATIENT HAS ONLY HAD THE RAC IV SO FAR, SHE DID NOT HAVE ONE IN HER HAND OR IN HER UA.
[2018-02-23 05:24] LABS: BASOPHILS ABSOLUTE AUTO 0.03 K/mm3 (0.00-0.23); BASOPHILS PERCENT AUTO 0 % (0-2); EOSINOPHILS ABSOLUTE AUTO 0.11 K/mm3 (0.00-0.68); EOSINOPHILS PERCENT AUTO 1 % (0-6); Hematocrit 28.5 % (33.0-51.0); Hemoglobin 8.3 g/dL (11.5-16.0); IMMATURE GRAN ABSOLUTE AUTO 0.11 K/mm3 (0.00-0.10); IMMATURE GRAN PERCENT AUTO 1 % (0-1); LYMPHOCYTES ABSOLUTE AUTO 0.65 K/mm3 (0.84-5.20); LYMPHOCYTES PERCENT AUTO 5 % (21-46); MONOCYTES ABSOLUTE AUTO 1.03 K/mm3 (0.16-1.47); MONOCYTES PERCENT AUTO 7 % (4-13); Mean Corpuscular HGB 23.4 pg (26.0-34.0); Mean Corpuscular HGB Conc 29.1 g/dL (31.5-36.5); Mean Corpuscular Volume 81 fL (80-100); Mean Platelet Volume 9.1 fL (9.1-12.4); NEUTROPHILS ABSOLUTE AUTO 12.63 K/mm3 (1.96-9.15); NEUTROPHILS PERCENT AUTO 87 % (41-73); Platelet Count 333 K/mm3 (150-400); RDW Standard Deviation 53.1 fL (35.1-46.3); Red Blood Cell Count 3.54 M/mm3 (3.80-5.20); White Blood Cell Count 14.56 K/mm3 (4.00-11.30)
--- NOTE | 2018-02-23 05:31 | NUR ---
PT LYING IN BED,EYES CLOSED, APPEARS TO BE RESTING. WAKES EASILY TO VERBAL STIMULI. DENIES NEED FOR ANYTHING AT THIS TIME. NO APPARENT SIGNS OF DISTRESS. CALL LIGHT IS IN REACH. NO OTHER CHANGES THIS SHIFT.
[2018-02-23 05:50] LABS: Alanine Aminotransfer (ALT/SGP 9 U/L (12-78); Albumin, Blood 2.5 g/dL (3.4-5.0); Albumin/Globulin Ratio 0.5 (0.8-1.8); Alk Phos 89 U/L (50-136); Anion Gap 7 mmol/L (6-16); Aspartate Aminotrans (AST/SGOT 8 U/L (12-37); Bilirubin, Total 0.9 mg/dL (0.1-1.0); Blood Urea Nitrogen 12 mg/dL (8-24); Bun/Creatinine Ratio 13.7 (12.0-20.0); CO2, Blood 35 mmol/L (21-32); Calcium, Blood 8.7 mg/dL (8.5-10.1); Chloride, Blood 91 mmol/L (98-108); Creatinine, Blood 0.87 mg/dL (0.40-1.00); Globulin, Blood 4.6 g/dL (2.2-4.0); Glomerular Filtration Rate >60 (60-); Glucose, Blood 101 mg/dL (70-99); Potassium, Blood 3.9 mmol/L (3.5-5.5); Sodium, Blood 133 mmol/L (136-145); Total Protein, Blood 7.1 g/dL (6.4-8.2)
--- NOTE | 2018-02-23 12:17 | NUR ---
Echocardiogram completed.
--- NOTE | 2018-02-23 18:35 | NUR ---
PATIENT A/OX4, UP INDEPENDENTLY IN ROOM. LUNGS DIMINISHED THROUGHOUT ON 4LO2 TO MAINTAIN SATS. RECEIVED 2 UNITS OF BLOOD YESTERDAY, HGB 8.3 THIS AM. 3+ EDEMA TO BLE, R LEG IS WEEPING. TOLERATING CARDIAC DIET. SCHO DONE TODAY AND PULMONOLOGY CONSULTED. [facility] SENT LAST SHIFT AND WAS POSTIVE, NEED TO COLLECT 2 MORE. VSS THIS SHIFT. REMAINS VERY SOB WITH EXERTION. CALM AND COOPERATIVE WITH CARE, CALLS APPROPRIATELY FOR ASSISTANCE.
--- NOTE | 2018-02-24 01:30 | NUR ---
02/23/182051 PT REPORTS SOB THAT INCREASES WITH EXERTION, ON 4L O2 NC AT 93%. REPORTS BACK PAIN, GAVE TYLENOL #3, WILL EVAL FOR EFFECT. NO OTHER APPARENT SIGNS OF DISTRESS. CALL LIGHT IS IN REACH.
--- NOTE | 2018-02-24 01:32 | NUR ---
0000 PT SITTING UP ON EDGE OF BED, LEANING ON TABLE, APPEARS TO BE SLEEPING. NO APPARENT SIGNS OF DISTRESS. CALL LIGHT IS IN REACH. 0132 PT LYING IN BED, EYES CLOSED, APPEARS TO BE RESTING. BREATHING IS EVEN, UNLABORED. NO APPARENT SIGNS OF DISTRESS. CALL LIGHT IS IN REACH.
[2018-02-24 01:59] LABS: Stool Occult Blood Guaiac 1 Pos (Neg)
--- NOTE | 2018-02-24 03:32 | NUR ---
PT SITTING UP ON EDGE OF BED PLAYING HAND HELD ELECTRONIC GAME. DENIES NEED FOR ANYTHING AT THIS TIME. NO APPARENT SIGNS OF DISTRESS. CALL LIGHT IS IN REACH.
--- NOTE | 2018-02-24 03:33 | NUR ---
PT IS AAO X 4, REPORTS SOB THAT INCREASES WITH EXERTION. ON 4L O2 NC AT 93%. REPORTED BACK PAIN, GOT TYLENOL #3. TEDS ARE ORDERED BUT PT DECLINES R/T LE'S WEEPING EDEMA. PT HAT TEMP AT HS OF 101.4, AFTER TYLENOL IT WAS 97.7.
[2018-02-24 05:16] LABS: BASOPHILS ABSOLUTE AUTO 0.03 K/mm3 (0.00-0.23); BASOPHILS PERCENT AUTO 0 % (0-2); EOSINOPHILS ABSOLUTE AUTO 0.08 K/mm3 (0.00-0.68); EOSINOPHILS PERCENT AUTO 1 % (0-6); Hematocrit 29.8 % (33.0-51.0); Hemoglobin 8.7 g/dL (11.5-16.0); IMMATURE GRAN ABSOLUTE AUTO 0.14 K/mm3 (0.00-0.10); IMMATURE GRAN PERCENT AUTO 1 % (0-1); LYMPHOCYTES ABSOLUTE AUTO 0.54 K/mm3 (0.84-5.20); LYMPHOCYTES PERCENT AUTO 3 % (21-46); MONOCYTES ABSOLUTE AUTO 1.11 K/mm3 (0.16-1.47); MONOCYTES PERCENT AUTO 7 % (4-13); Mean Corpuscular HGB 23.6 pg (26.0-34.0); Mean Corpuscular HGB Conc 29.2 g/dL (31.5-36.5); Mean Corpuscular Volume 81 fL (80-100); Mean Platelet Volume 9.1 fL (9.1-12.4); NEUTROPHILS ABSOLUTE AUTO 14.03 K/mm3 (1.96-9.15); NEUTROPHILS PERCENT AUTO 88 % (41-73); Platelet Count 341 K/mm3 (150-400); RDW Coefficient Variation 18.8 % (11.7-14.2); RDW Standard Deviation 55.5 fL (35.1-46.3); Red Blood Cell Count 3.68 M/mm3 (3.80-5.20); White Blood Cell Count 15.93 K/mm3 (4.00-11.30)
--- NOTE | 2018-02-24 05:43 | NUR ---
PT LYING IN BED, EYES CLOSED, APPEARS TO BE RESTING. BREATHING IS EVEN, UNLABORED. NO APPARENT SIGNS OF DISTRESS. CALL LIGHT IS IN REACH. NO OTHER CHANGES THIS SHIFT.
[2018-02-24 05:47] LABS: Anion Gap 4 mmol/L (6-16); Blood Urea Nitrogen 13 mg/dL (8-24); Bun/Creatinine Ratio 15.5 (12.0-20.0); CO2, Blood 40 mmol/L (21-32); Calcium, Blood 8.8 mg/dL (8.5-10.1); Chloride, Blood 86 mmol/L (98-108); Creatinine, Blood 0.84 mg/dL (0.40-1.00); Glomerular Filtration Rate >60 (60-); Glucose, Blood 99 mg/dL (70-99); Potassium, Blood 3.5 mmol/L (3.5-5.5); Sodium, Blood 130 mmol/L (136-145)
--- NOTE | 2018-02-24 18:10 | NUR ---
SHIFT SUMMARY- PT C/O BACK PAIN THIS AM. MEDS GIVEN PER EMAR. NOTIFIED DR. GARCIA OF PT'S NA LEVEL OF 130. AND THAT PT'S WBC COUNT HAS INCREASED SINCE YESTERDAY AND IS CURRENTLY 15.93. PT DENIES SOB AT REST. DYSPNEA UPON EXERTION. 95% ON 4L O2 NC. DENIES N/V. SBA INTO THE BATHROOM. NO OTHER SIGNIFICANT CHANGES THIS SHIFT.
--- NOTE | 2018-02-25 04:13 | NUR ---
SHIFT SUMMARY PATIENT HAD NO ACUTE CHANGES OBSERVED THIS SHIFT. REPORTS BACK PAIN AND RECEIVED TYLENOL W/CODEINE PER EMAR. PATIENT REPORTS PAIN MANAGEMENT HELPS HER SLEEP. AXOX 3 AND SBA. DENIES SOB AND N/V. ON 4L O2 N/C. PIV REMAINS INTACT. VSS/AFEBRILE. CALL LIGHT IN REACH. BED IN LOWEST POSITION. WILL CONTINUE TO MONITOR UNTIL DAY SHIFT NURSE ASSUMES CARE.
[2018-02-25 04:54] LABS: Hematocrit 29.4 % (33.0-51.0); Hemoglobin 8.3 g/dL (11.5-16.0); Mean Corpuscular HGB 23.5 pg (26.0-34.0); Mean Corpuscular HGB Conc 28.2 g/dL (31.5-36.5); Mean Corpuscular Volume 83 fL (80-100); Mean Platelet Volume 8.8 fL (9.1-12.4); Platelet Count 303 K/mm3 (150-400); RDW Coefficient Variation 19.4 % (11.7-14.2); RDW Standard Deviation 59.1 fL (35.1-46.3); Red Blood Cell Count 3.53 M/mm3 (3.80-5.20); White Blood Cell Count 16.18 K/mm3 (4.00-11.30)
[2018-02-25 05:17] LABS: BAND PERCENT MAN 6 % (0-8); BASOPHILS PERCENT MAN 0 % (0-2); EOSINOPHILS PERCENT MAN 0 % (0-6); LYMPHOCYTES ABSOLUTE MAN 0.16 K/mm3 (0.84-5.20); LYMPHOCYTES PERCENT MAN 1 % (21-46); MONOCYTES ABSOLUTE MAN 0.32 K/mm3 (0.16-1.47); MONOCYTES PERCENT MAN 2 % (4-13); NEUTROPHILS ABSOLUTE MAN 15.69 K/mm3 (1.96-9.15); SEG NEUTROPHILS PERCENT MAN 91 % (41-73); TOTAL CELLS COUNTED 100
[2018-02-25 05:18] LABS: Albumin, Blood 2.2 g/dL (3.4-5.0); Albumin/Globulin Ratio 0.5 (0.8-1.8); Bilirubin, Total 0.5 mg/dL (0.1-1.0); Bun/Creatinine Ratio 16.1 (12.0-20.0); Calcium, Blood 8.9 mg/dL (8.5-10.1); Creatinine, Blood 0.99 mg/dL (0.40-1.00); Globulin, Blood 4.5 g/dL (2.2-4.0); Magnesium, Blood 2.1 mg/dL (1.6-2.4); Phosphorus, Blood 4.2 mg/dL (2.5-4.9); Potassium, Blood 3.6 mmol/L (3.5-5.5); Total Protein, Blood 6.7 g/dL (6.4-8.2)
--- NOTE | 2018-02-25 18:29 | NUR ---
PATIENT HAS NO COMPLAINTS OF SOB, NV, PAIN OR DIARRHEA THIS SHIFT. SHE IS PLEASANT AND COOPERATIVE WITH CARES. NO STOOL SAMPLE OBTAINED. PATIENT HAS RESTED MOST OF SHIFT. CALL LIGHT WITHIN REACH.
--- NOTE | 2018-02-25 20:12 | NUR ---
PATIENT OUT TO CENTER VIA W/C WITH OXYGEN WITH FAMILY.
--- NOTE | 2018-02-25 21:57 | NUR ---
PATIENT BACK IN ROOM FOR THIRTY MINUTES VIA W/C AND REHOOKED UP TO ROOM OXYGEN. CALL LIGHT IN REACH. WILL CONTINUE TO MONITOR.
--- NOTE | 2018-02-26 01:57 | NUR ---
GUAIAC STOOL 3/3 SAMPLE SENT TO LAB. CALL LIGHT IN REACH. WILL CONTINUE TO MONITOR.
--- NOTE | 2018-02-26 04:24 | NUR ---
SHIFT SUMMARY PATIENT HAD NO ACUTE CHANGES OBSERVED THIS SHIFT. PATIENT WENT WITH [facility] TO [facility] VIA W/C AND OXYGEN AND BACK AFTER VIEWING BABY. AXOX 3 AND SBA TO BR. COPE STOOL SAMPLE 04/16 SENT TO LAB. PATIENT REPORTED BACK PAIN AND RECEIVED TYLENOL W/CODEINE PER EMAR. DENIES SOB AND N/V. PIV REMAINS INTACT. VSS/AFEBRILE, CALL LIGHT IN REACH. BED IN LOWEST POSITION. WILL CONTINUE TO MONITOR UNTIL DAY SHIFT NURSE AASUMES CARE.
[2018-02-26 05:07] LABS: BASOPHILS ABSOLUTE AUTO 0.04 K/mm3 (0.00-0.23); BASOPHILS PERCENT AUTO 0 % (0-2); EOSINOPHILS ABSOLUTE AUTO 0.04 K/mm3 (0.00-0.68); EOSINOPHILS PERCENT AUTO 0 % (0-6); Hematocrit 29.6 % (33.0-51.0); Hemoglobin 8.6 g/dL (11.5-16.0); IMMATURE GRAN ABSOLUTE AUTO 0.12 K/mm3 (0.00-0.10); IMMATURE GRAN PERCENT AUTO 1 % (0-1); LYMPHOCYTES ABSOLUTE AUTO 0.56 K/mm3 (0.84-5.20); LYMPHOCYTES PERCENT AUTO 3 % (21-46); MONOCYTES ABSOLUTE AUTO 1.36 K/mm3 (0.16-1.47); MONOCYTES PERCENT AUTO 8 % (4-13); Mean Corpuscular HGB 23.8 pg (26.0-34.0); Mean Corpuscular HGB Conc 29.1 g/dL (31.5-36.5); Mean Corpuscular Volume 82 fL (80-100); Mean Platelet Volume 9.1 fL (9.1-12.4); NEUTROPHILS ABSOLUTE AUTO 14.49 K/mm3 (1.96-9.15); NEUTROPHILS PERCENT AUTO 87 % (41-73); Platelet Count 304 K/mm3 (150-400); RDW Coefficient Variation 19.4 % (11.7-14.2); RDW Standard Deviation 58.2 fL (35.1-46.3); Red Blood Cell Count 3.62 M/mm3 (3.80-5.20); White Blood Cell Count 16.61 K/mm3 (4.00-11.30)
[2018-02-26 05:31] LABS: Bun/Creatinine Ratio 18.7 (12.0-20.0); Calcium, Blood 8.9 mg/dL (8.5-10.1); Creatinine, Blood 1.07 mg/dL (0.40-1.00); Potassium, Blood 3.4 mmol/L (3.5-5.5)
[2018-02-26 08:25] LABS: Stool Occult Blood Guaiac 1 Pos (Neg)
[2018-02-26 16:50] LABS: Base Excess Venous 19.8 mmol/L; Bicarbonate Venous 41.5 mmol/L (24.0-30.0); PCO2 Venous 65.7 mmHg (38-42); PO2 Venous 86.5 mmHg (38-42); pH Blood Venous 7.44 (7.34-7.37)
--- NOTE | 2018-02-26 17:23 | NUR ---
PATIENT HAS BEEN UP IN CHAIR TODAY WITH NO COMPLAINTS. SHE WAS STARTED ON IV ABX. HER LEGS ARE NO LONGER WEAPING. SCABBED OVER.
[2018-02-27 02:49] LABS: Source, Urine Clean Catch
--- NOTE | 2018-02-27 02:56 | NUR ---
URINE SAMPLE COLLECTED AND SENT TO LAB.
[2018-02-27 03:00] LABS: Appearance, Urine Clear (Clear); Bacteria Few /hpf; Bilirubin, Urine Neg (Neg); Blood, Urine 1+ (Neg); Color, Urine Yellow (P-Yellow); Glucose Qualitative, Urine Neg (Neg); Ketones, Urine Neg (Neg); Leukocyte Esterase, Urine Neg (Neg); Nitrite, Urine Neg (Neg); Protein, Urine 2+ (Neg); Red Blood Cells, Urine 0-2 /hpf (0-2); Squamous Epithelial Cells Few /hpf (Few); Urobilinogen, Urine 1+ (Normal); White Blood Cells, Urine 0-2 /hpf (0-5)
--- NOTE | 2018-02-27 03:38 | NUR ---
PATIENT REPORTS BEING ANXIOUS AND HAVING BACK PAIN. XANAX AND TYLENOL GIVEN PER EMAR. PATIENT SITTING ON SIDE OF BED AND REPORTS WILL GET BACK INTO BED. CALL LIGHT IN REACH. WILL CONTINUE TO MONITOR.
--- NOTE | 2018-02-27 04:06 | NUR ---
SHIFT SUMMARY PATIENT HAD NO ACUTE CHANGES OBSERVED DURING THE SHIFT. AXOX 3 AND INDEPENDENT IN THE ROOM. DENIES PAIN, SOB, AND N/V. PATIENT STAYING IN CHAIR THIS SHIFT. REPORTS BEING ANXIOUS WITH BACK PAIN. XANAX AND TYLENOL GIVEN PER EMAR. ON 4L O2 N/C. PIV REMAINS INTACT. VSS/AFEBRILE. URINE SAMPLE COLLECTED AND SENT TO LAB. CALL LIGHT IN REACH. BED IN LOWEST POSITION. WILL CONTINUE TO MONITOR UNTIL DAY SHIFT NURSE ASSUMES CARE.
[2018-02-27 05:02] LABS: BASOPHILS ABSOLUTE AUTO 0.06 K/mm3 (0.00-0.23); BASOPHILS PERCENT AUTO 0 % (0-2); EOSINOPHILS ABSOLUTE AUTO 0.02 K/mm3 (0.00-0.68); EOSINOPHILS PERCENT AUTO 0 % (0-6); Hematocrit 30.8 % (33.0-51.0); Hemoglobin 8.7 g/dL (11.5-16.0); IMMATURE GRAN ABSOLUTE AUTO 0.22 K/mm3 (0.00-0.10); IMMATURE GRAN PERCENT AUTO 1 % (0-1); LYMPHOCYTES ABSOLUTE AUTO 0.46 K/mm3 (0.84-5.20); LYMPHOCYTES PERCENT AUTO 3 % (21-46); MONOCYTES ABSOLUTE AUTO 1.43 K/mm3 (0.16-1.47); MONOCYTES PERCENT AUTO 8 % (4-13); Mean Corpuscular HGB 23.3 pg (26.0-34.0); Mean Corpuscular HGB Conc 28.2 g/dL (31.5-36.5); Mean Corpuscular Volume 83 fL (80-100); Mean Platelet Volume 8.8 fL (9.1-12.4); NEUTROPHILS PERCENT AUTO 88 % (41-73); Platelet Count 328 K/mm3 (150-400); RDW Coefficient Variation 19.7 % (11.7-14.2); RDW Standard Deviation 59.3 fL (35.1-46.3); Red Blood Cell Count 3.73 M/mm3 (3.80-5.20); White Blood Cell Count 18.09 K/mm3 (4.00-11.30)
[2018-02-27 05:25] LABS: Anion Gap 7 mmol/L (6-16); Blood Urea Nitrogen 16 mg/dL (8-24); Bun/Creatinine Ratio 20.5 (12.0-20.0); CO2, Blood 37 mmol/L (21-32); Calcium, Blood 9.1 mg/dL (8.5-10.1); Chloride, Blood 85 mmol/L (98-108); Creatinine, Blood 0.78 mg/dL (0.40-1.00); Glomerular Filtration Rate >60 (60-); Glucose, Blood 109 mg/dL (70-99); Potassium, Blood 3.7 mmol/L (3.5-5.5); Sodium, Blood 129 mmol/L (136-145)
--- NOTE | 2018-02-27 18:53 | NUR ---
SHIFT SUMMARY PT DROWSY AND CONFUSED THIS MORNING. STATED SHE GETS VERY SLEEPY WITH XANAX WHICH WAS GIVEN EARLIER THIS MORNING. FAMILY AT BEDSIDE ON AND OFF TODAY. TOOK A SHOWER THIS MORNING. SOB WITH EXERTION. LESS DROWSY THIS AFTERNOON BUT DAUGHTER REPORTS SHE IS MORE CONFUSED TODAY THAN YESTERDAY. NO NEW SUDDEN RESP DISTRESS NOTED TODAY.
--- NOTE | 2018-02-27 20:09 | NUR ---
AT 1730 PT HAS GIVEN VERBAL PERMISSION FOR THIS PRODUCTION CREW SUPERVISOR TO ASSIST IN PT CARE ON 02/28/18
--- NOTE | 2018-02-28 04:59 | NUR ---
SHIFT SUMMARY: PT IS ALERT AND ORIENTED. PT IS CALM AND COOPERATIVE WITH CARE. PT CALLS APPROPRIATELY. PT IS UP INDEPENDENTLY TO THE BATHROOM. PT REPORTS BACK PAIN, MEDICATING PER EMAR. PT REPORTS SOB UPON EXERTION, O2 @ 4 L KEEPING SATS > 90%. PT DENIES NAUSEA AND VOMITING. PT SLEPT MUCH OF THE NIGHT WHEN NOT DISTURBED. NO ACUTE CHANGES OR COMPLICATIONS THIS SHIFT. BED IN LOW POSITION, CALL LIGHT WITHIN REACH.
[2018-02-28 05:00] LABS: BASOPHILS ABSOLUTE AUTO 0.05 K/mm3 (0.00-0.23); BASOPHILS PERCENT AUTO 0 % (0-2); EOSINOPHILS ABSOLUTE AUTO 0.03 K/mm3 (0.00-0.68); EOSINOPHILS PERCENT AUTO 0 % (0-6); Hematocrit 29.1 % (33.0-51.0); Hemoglobin 8.2 g/dL (11.5-16.0); IMMATURE GRAN ABSOLUTE AUTO 0.23 K/mm3 (0.00-0.10); IMMATURE GRAN PERCENT AUTO 1 % (0-1); LYMPHOCYTES ABSOLUTE AUTO 0.66 K/mm3 (0.84-5.20); LYMPHOCYTES PERCENT AUTO 4 % (21-46); MONOCYTES ABSOLUTE AUTO 1.35 K/mm3 (0.16-1.47); MONOCYTES PERCENT AUTO 8 % (4-13); Mean Corpuscular HGB 23.5 pg (26.0-34.0); Mean Corpuscular HGB Conc 28.2 g/dL (31.5-36.5); Mean Corpuscular Volume 83 fL (80-100); Mean Platelet Volume 9.2 fL (9.1-12.4); NEUTROPHILS ABSOLUTE AUTO 14.23 K/mm3 (1.96-9.15); NEUTROPHILS PERCENT AUTO 86 % (41-73); Platelet Count 324 K/mm3 (150-400); RDW Coefficient Variation 19.6 % (11.7-14.2); RDW Standard Deviation 59.7 fL (35.1-46.3); Red Blood Cell Count 3.49 M/mm3 (3.80-5.20); White Blood Cell Count 16.55 K/mm3 (4.00-11.30)
[2018-02-28 05:33] LABS: Alanine Aminotransfer (ALT/SGP 8 U/L (12-78); Albumin/Globulin Ratio 0.4 (0.8-1.8); Alk Phos 111 U/L (50-136); Anion Gap 5 mmol/L (6-16); Aspartate Aminotrans (AST/SGOT 12 U/L (12-37); Bilirubin, Total 0.3 mg/dL (0.1-1.0); Blood Urea Nitrogen 13 mg/dL (8-24); Bun/Creatinine Ratio 17.3 (12.0-20.0); CO2, Blood 39 mmol/L (21-32); Calcium, Blood 8.8 mg/dL (8.5-10.1); Chloride, Blood 89 mmol/L (98-108); Creatinine, Blood 0.75 mg/dL (0.40-1.00); Globulin, Blood 4.8 g/dL (2.2-4.0); Glomerular Filtration Rate >60 (60-); Glucose, Blood 116 mg/dL (70-99); Potassium, Blood 3.4 mmol/L (3.5-5.5); Sodium, Blood 133 mmol/L (136-145); Total Protein, Blood 6.8 g/dL (6.4-8.2)
--- NOTE | 2018-02-28 12:18 | NUR ---
02/28/18 PT GAVE PERMISSION FOR CARE BY PERSONAL LOAN SPECIALIST FOR 03/01/18
--- NOTE | 2018-02-28 13:25 | NUR ---
DR MILLER IN TO SEE PT.
--- NOTE | 2018-02-28 14:34 | NUR ---
Initial Visit: Palliative care received consult for this pt to discuss multiple comorbidities and instruct on advance directives and POLST. Pt is sitting up in chair. She is cold. Turned up heat and student nurse draped a warm blanket over her. Pt short of breath with conversation, however, is able to speak in complete sentences. She reports pain level 6/10. Reviewed medications. She is able to have another dose of Tylenol 3. Reviewed POLST and advance directive. Pt reports that she has a copy of adv dir at home that isn't complete. She reports that her daugher is going to help her fill it out. Reviewed risk vs benefit of life sustaining treatments. She is wanting CPR and intubation if needed. Code status to remain FULL at this time. Pt lives with roommate. She reports that roommate helps her in every way. She has been cooking and cleaning since the patient became ill in last fall. Pt prior function was better. She was able to babysit her 3 y/o granddaughter without difficulty. She is hopeful for cure; Dr. Crow is working on sending the pt to [facility] in [place] to continue medical treatment, per pt and nursing. No other concerns. This was an initial visit. I did not push pt to change code status, as she is a new patient of Palliative Care and do not know the nurses. Repport was developed. Will follow up with other visits if the pt remains here at [facility]. Risk for readmission is high due to multiple comorbidities. Palliative care to remain available.
--- NOTE | 2018-02-28 17:07 | NUR ---
SHIFT SUMMARY- PT A/OX4, INDEP IN ROOM. PT MEDICATED X2 FOR LEFT SIDE BACK/SIDE PAIN. GASX GIVEN X1 FOR GAS PAINS. LS DIMINISHED, ON 3L N/C WHICH IS HER BASELINE, MILD SOB NOTED WITH EXERTION. DR MILLER CONSULTED AND REQUESTING COBRA TRANSFER WHEN HAVE AN ACCEPTING DRMichi ESOPHAGUS SWALLOW ORDERED FOR TOMORROW AM. 2+ BLE EDEMA NOTED, IV LASIX CHANGED TO DAILY. NO OTHER ACUTE CHANGES THIS SHIFT.
--- NOTE | 2018-03-01 04:43 | NUR ---
SHIFT SUMMARY NO CHANGES TO REPORT THIS SHIFT. MEDICATED FOR PAIN IN HER BACK AND LEFT SIDE PER ORDERS. TYLENOL 3 PROVID[address] PAIN RELIEF. DR. ABEBE ROUNDED ON PT DURING CHANGE OF SHIFT. THERE WERE NO NEW ORDERS GIVEN. PLAN IS FOR COBRA TRANSFER TO [facility]. PT STILL AWAITING A BED AT THIS TIME. PT AWARE OF POC AND MADE HER DAUGHTER AWARE OF THE PLAN WELL. PT HAS BEEN INDEPENDENT IN THE ROOM. 3L O2 IN PLACE. SATS WNL. RESP E/U. VITALS STABLE. ASSESSMENT UNCHANGED. WILL CONTINUE TO MONITOR AND REPORT TO ONCOMING RN.
--- NOTE | 2018-03-01 16:54 | NUR ---
SHIFT SUMMARY- PT A/OX4, INDEP TO BATHROOM. PT MEDICATED X1 WITH TYLENOL #3 FOR PAIN TO BACK/LEFT SIDE. LS DIMINISHED, GREATER ON THE LEFT SIDE. 02 3-4 L N/C, SOB WITH EXERTION. 1+ BLE EDEMA. ESOPHAGUS XRAY COMPLETED THIS AM. PT CURRENTLY AWAITING COBRA TRANSFER TO [place], AWAITING A BED. PT HAS BEEN UP WITH VISITING WITH FAMILY T/O THE DAY. NO OTHER ACUTE CHANGES THIS SHIFT.
--- NOTE | 2018-03-02 05:07 | NUR ---
SHIFT SUMMARY PT WAS UP LATE WATCHING TV. PT SAT ON SIDE OFF BED FOR FIRST PART OF SHIFT. PT HAD SOME DYSPNEA WHEN GOING TO RESTROOM. DYSPNEA RESOLVED WITH REST. PT IS EAGER TO GO TO [place]. PT IS CURRENTLY SLEEPING AND IN NO DISTRESS. CALL LIGHT IN REACH.
[2018-03-02 12:04] LABS: BASOPHILS ABSOLUTE AUTO 0.08 K/mm3 (0.00-0.23); BASOPHILS PERCENT AUTO 0 % (0-2); EOSINOPHILS ABSOLUTE AUTO 0.06 K/mm3 (0.00-0.68); EOSINOPHILS PERCENT AUTO 0 % (0-6); Hematocrit 30.1 % (33.0-51.0); Hemoglobin 8.7 g/dL (11.5-16.0); IMMATURE GRAN ABSOLUTE AUTO 0.92 K/mm3 (0.00-0.10); IMMATURE GRAN PERCENT AUTO 4 % (0-1); LYMPHOCYTES ABSOLUTE AUTO 0.62 K/mm3 (0.84-5.20); LYMPHOCYTES PERCENT AUTO 3 % (21-46); MONOCYTES ABSOLUTE AUTO 1.39 K/mm3 (0.16-1.47); MONOCYTES PERCENT AUTO 7 % (4-13); Mean Corpuscular HGB 23.1 pg (26.0-34.0); Mean Corpuscular HGB Conc 28.9 g/dL (31.5-36.5); Mean Platelet Volume 9.2 fL (9.1-12.4); NEUTROPHILS ABSOLUTE AUTO 18.47 K/mm3 (1.96-9.15); NEUTROPHILS PERCENT AUTO 86 % (41-73); Platelet Count 431 K/mm3 (150-400); RDW Coefficient Variation 19.6 % (11.7-14.2); RDW Standard Deviation 57.1 fL (35.1-46.3); Red Blood Cell Count 3.76 M/mm3 (3.80-5.20); White Blood Cell Count 21.54 K/mm3 (4.00-11.30)
[2018-03-02 12:06] LABS: Mean Corpuscular Volume 80 fL (80-100)
[2018-03-02 12:21] LABS: Alanine Aminotransfer (ALT/SGP 11 U/L (12-78); Albumin, Blood 2.3 g/dL (3.4-5.0); Albumin/Globulin Ratio 0.4 (0.8-1.8); Alk Phos 116 U/L (50-136); Anion Gap 6 mmol/L (6-16); Aspartate Aminotrans (AST/SGOT 11 U/L (12-37); Bilirubin, Total 0.3 mg/dL (0.1-1.0); Blood Urea Nitrogen 10 mg/dL (8-24); Bun/Creatinine Ratio 11.2 (12.0-20.0); CO2, Blood 38 mmol/L (21-32); Calcium, Blood 9.2 mg/dL (8.5-10.1); Chloride, Blood 87 mmol/L (98-108); Creatinine, Blood 0.89 mg/dL (0.40-1.00); Globulin, Blood 5.4 g/dL (2.2-4.0); Glomerular Filtration Rate >60 (60-); Glucose, Blood 103 mg/dL (70-99); Potassium, Blood 3.6 mmol/L (3.5-5.5); Sodium, Blood 131 mmol/L (136-145); Total Protein, Blood 7.7 g/dL (6.4-8.2)
--- NOTE | 2018-03-02 16:52 | NUR ---
PT TRANSFERED TO [facility] VIA [facility]. PACKET SENT WITH ALL NEEDED MATERIAL. REPORT CALLED TO ДМИТРИЙ VALERIO AT 1650. PT WAS RELAXED AND COOPERATIVE OF CARE NO DISTRESS NOTED.
== END 2018-03-02 16:25 | disposition short-term general hospital (02) | DRG 291 ==
LOC: ER 10:33 → MEDS 14:54 → ENPENDDIS 02-28 17:34 → MEDS 03-02 16:25
PROVIDERS: Internal Medicine; Internal Medicine Critical Care Medicine; Physician Assistant; ADMIT Family Medicine
PROC: 30233N1 Transfusion of Nonautologous Red Blood Cells into Peripheral Vein, Percutaneous Approach (ICD-10-PCS; principal; 2018-02-22)
DX: I11.0 Hypertensive heart disease with heart failure (principal); J96.21 Acute and chronic respiratory failure with hypoxia; D62 Acute posthemorrhagic anemia; J91.8 Pleural effusion in other conditions classified elsewhere; I50.33 Acute on chronic diastolic (congestive) heart failure; J43.9 Emphysema, unspecified; Z99.81 Dependence on supplemental oxygen; E03.9 Hypothyroidism, unspecified; E78.5 Hyperlipidemia, unspecified; Z85.3 Personal history of malignant neoplasm of breast; Q27.33 Arteriovenous malformation of digestive system vessel; M81.0 Age-related osteoporosis without current pathological fracture; Z87.891 Personal history of nicotine dependence; E87.70 Fluid overload, unspecified; M54.12 Radiculopathy, cervical region; Z87.01 Personal history of pneumonia (recurrent); M06.9 Rheumatoid arthritis, unspecified; M35.3 Polymyalgia rheumatica; Z90.11 Acquired absence of right breast and nipple
CPT/HCPCS: 36415; 36430; 71046; 71250; 74220; 80048; 80053; 81001; 82270; 82803; 83735; 83880; 84100; 84145; 84484; 85025; 86850; 86900; 86901; 86923; 93005; 93010; 93306; 94640; 94667; 94760; 98960; 99285-25; 99406; C9113; J0456; J0696; J1940; J2543; J7030; J7050; P9016

== ENCOUNTER 2018-05-02 06:16 | Day surgery (SDC) | payer OTHER ==
[~2018-05-02] VITALS: Ht 154.9 cm; Wt 80.4 kg
[~2018-05-02 06:16] MED LIST changes: +Lopressor 25 mg25 MG PO; +VOLTAREN100 GM TOP; +Vitamin D2000 UNIT PO; +[UNRECOGNIZED DRUG - OTHER] PO
--- NOTE | 2018-05-02 10:10 | NUR ---
DISCHARGE PT REMAINED A&OX3 AND DENIED ANY PAIN DURING RECOVERY. DISCHARGE INSTRUCTIONS GONE OVER WITH PT. PT VERBALLY STATED THE UNDERSTANDING OF THE DISCHARGE EDUCATION AND DENIED ANY QUESTIONS AT THIS TIME. EV DC'D WITH CAROL IN TACT. PT DRESSED SELF INDEPENADANTLY. PT WHEELED OUT BY THIS NURSE.
--- NOTE | 2018-05-03 16:56 | NUR ---
CALL BACK: CALLED PT IN CONCERNS OF DISCHARGE PAPERWORK NOT GOING HOME WITH PT. RE-EDUCATED PT ON HOW TO TAKE CARE OF PROCEDURE SITE AND TO CALL DR. MOSELEY OFFICE WITH ANY QUESTIONS OR CONCERNS. PT STATED THE UNDERSTANDING OF THE EDUCATION GIVEN AND DENIED ANY QUESTIONS ABOUT THE DISCHARGE EDUCATION.
== END 2018-05-02 10:00 | disposition home or self-care (01) ==
LOC: MHTC 06:16
DX: Z45.2 Encounter for adjustment and management of vascular access device (principal); N17.9 Acute kidney failure, unspecified; I12.9 Hypertensive chronic kidney disease with stage 1 through stage 4 chronic kidney disease, or unspecified chronic kidney disease; N18.9 Chronic kidney disease, unspecified; D63.1 Anemia in chronic kidney disease; J44.9 Chronic obstructive pulmonary disease, unspecified; K21.9 Gastro-esophageal reflux disease without esophagitis; M79.7 Fibromyalgia; Z87.891 Personal history of nicotine dependence; Z88.8 Allergy status to other drugs, medicaments and biological substances; Z88.6 Allergy status to analgesic agent; Z79.899 Other long term (current) drug therapy
CPT/HCPCS: 99152; J1644; J2250; J3010; J7040

== ENCOUNTER → 2018-09-22 | Outpatient (CLI) | payer OTHER ==
[2018-09-22 15:28] LABS: Percent Saturation 7.5 % (15.0-50.0)
== END | disposition home or self-care (01) ==
LOC: LAB 13:08 → LAB SHORT 13:08
PROVIDERS: Internal Medicine Hematology & Oncology
DX: N18.9 Chronic kidney disease, unspecified (principal); D63.1 Anemia in chronic kidney disease; D50.9 Iron deficiency anemia, unspecified
CPT/HCPCS: 82728; 83540; 83550

== ENCOUNTER 2019-03-29 11:11 | Inpatient (IN) | payer OTHER ==
[~2019-03-29] VITALS: Ht 154.9 cm; Wt 91.2 kg
[~2019-03-29 11:11] MED LIST changes: +FEROSUL325 MG PO; +Prednisone20 MG PO; -[UNRECOGNIZED DRUG - OTHER] PO
[2019-03-29 15:10] LABS: Hematocrit 35.3 % (33.0-51.0); Hemoglobin 10.3 g/dL (11.5-16.0); Mean Corpuscular HGB Conc 29.2 g/dL (31.5-36.5); Platelet Count 304 K/mm3 (150-400); RDW Coefficient Variation 18.8 % (11.7-14.2); RDW Standard Deviation 63.8 fL (35.1-46.3); Red Blood Cell Count 3.82 M/mm3 (3.80-5.20); White Blood Cell Count 9.94 K/mm3 (4.00-11.30)
[2019-03-29 15:14] LABS: Mean Corpuscular Volume 92 fL (80-100)
[2019-03-29 15:30] LABS: Alanine Aminotransfer (ALT/SGP 17 U/L (12-78); Albumin, Blood 2.5 g/dL (3.4-5.0); Albumin/Globulin Ratio 0.5 (0.8-1.8); Alk Phos 155 U/L (50-136); Anion Gap 4 mmol/L (6-16); Aspartate Aminotrans (AST/SGOT 9 U/L (12-37); Bilirubin, Total 0.1 mg/dL (0.1-1.0); Blood Urea Nitrogen 29 mg/dL (8-24); Bun/Creatinine Ratio 38.9 (12.0-20.0); CO2, Blood 30 mmol/L (21-32); Calcium, Blood 9.3 mg/dL (8.5-10.1); Chloride, Blood 104 mmol/L (98-108); Creatinine, Blood 0.75 mg/dL (0.40-1.00); Globulin, Blood 4.8 g/dL (2.2-4.0); Glomerular Filtration Rate >60 (60-); Glucose, Blood 101 mg/dL (70-99); Potassium, Blood 3.6 mmol/L (3.5-5.5); Sodium, Blood 138 mmol/L (136-145); Total Protein, Blood 7.3 g/dL (6.4-8.2)
[2019-03-29 15:31] LABS: BAND PERCENT MAN 2 % (0-8); BASOPHILS PERCENT MAN 0 % (0-2); EOSINOPHILS PERCENT MAN 0 % (0-6); LYMPHOCYTES ABSOLUTE MAN 1.29 K/mm3 (0.84-5.20); LYMPHOCYTES PERCENT MAN 13 % (21-46); METAMYELOCYTE ABSOLUTE MAN 0.09 K/mm3 (0.00-0.00); METAMYELOCYTE PERCENT MAN 1 % (0-0); MONOCYTES ABSOLUTE MAN 0.49 K/mm3 (0.16-1.47); MONOCYTES PERCENT MAN 5 % (4-13); MYELOCYTE ABSOLUTE MAN 0.49 K/mm3 (0.00-0.00); MYELOCYTE PERCENT MAN 5 % (0-0); NEUTROPHILS ABSOLUTE MAN 7.55 K/mm3 (1.96-9.15); SEG NEUTROPHILS PERCENT MAN 74 % (41-73); TOTAL CELLS COUNTED 100
[2019-03-29] MEDS ORDERED: BUDE10.22 INH (20:58)
[2019-03-29] MEDS ORDERED: PROAIR RESPICL90 MCG INH (20:58)
[2019-03-29] MEDS ORDERED: Oxybutynin Chlo15 MG PO (20:58)
[2019-03-29] MEDS ORDERED: TOLT4 PO (20:59)
--- NOTE | 2019-03-30 02:42 | NUR ---
2100 pt arrived to unit via hospital bed. oriented to room and staff. a/o x4. pt stated she fell at home a couple of days ago. bed alarm on. pt instructed to use call light when she needs to get up. pt connected to tele. sinus w/ pacs in the 60's with occasional bradycardic episodes dipping down to 48 bpm and then comes back up to the 60s. charge nurse aware of this. i will also pass this on to am nurse. complains of pain in back and ribs. refer to emar for pain management. denies chest pain, sob on exertion. currently on 3L o2 via nasal cannula satting in low to mid 90's. vss, will continue to monitor.
[2019-03-30 03:08] LABS: Adenovirus Not Detected (NOT DETECT); Bordetella pertussis Not Detected (NOT DETECT); Chlamydophila pneumoniae Not Detected (NOT DETECT); Coronavirus 229E Not Detected (NOT DETECT); Coronavirus HKU1 Not Detected (NOT DETECT); Coronavirus NL63 Not Detected (NOT DETECT); Coronavirus OC43 Not Detected (NOT DETECT); Human Metapneumovirus Not Detected (NOT DETECT); Human Rhinovirus/Enterovirus Not Detected (NOT DETECT); Influenza A Not Detected (NOT DETECT); Influenza A/2009-H1 Not Detected (NOT DETECT); Influenza A/H1 Not Detected (NOT DETECT); Influenza A/H3 Not Detected (NOT DETECT); Influenza B Not Detected (NOT DETECT); Mycoplasma pneumoniae Not Detected (NOT DETECT); Parainfluenza Virus 1 Not Detected (NOT DETECT); Parainfluenza Virus 2 Not Detected (NOT DETECT); Parainfluenza Virus 3 Not Detected (NOT DETECT); Parainfluenza Virus 4 Not Detected (NOT DETECT); Respiratory Syncytial Virus Not Detected (NOT DETECT)
[2019-03-30 05:47] LABS: Hematocrit 32.5 % (33.0-51.0); Hemoglobin 9.4 g/dL (11.5-16.0); Mean Corpuscular HGB 27.2 pg (26.0-34.0); Mean Corpuscular HGB Conc 28.9 g/dL (31.5-36.5); Mean Corpuscular Volume 94 fL (80-100); Mean Platelet Volume 9.4 fL (9.1-12.4); Platelet Count 285 K/mm3 (150-400); RDW Coefficient Variation 18.9 % (11.7-14.2); RDW Standard Deviation 65.1 fL (35.1-46.3); Red Blood Cell Count 3.45 M/mm3 (3.80-5.20); White Blood Cell Count 8.27 K/mm3 (4.00-11.30)
[2019-03-30 06:03] LABS: Anion Gap 3 mmol/L (6-16); Blood Urea Nitrogen 22 mg/dL (8-24); Bun/Creatinine Ratio 32.2 (12.0-20.0); CO2, Blood 31 mmol/L (21-32); Calcium, Blood 8.7 mg/dL (8.5-10.1); Chloride, Blood 105 mmol/L (98-108); Creatinine, Blood 0.68 mg/dL (0.40-1.00); Glomerular Filtration Rate >60 (60-); Glucose, Blood 93 mg/dL (70-99); Potassium, Blood 4.1 mmol/L (3.5-5.5); Sodium, Blood 139 mmol/L (136-145)
[2019-03-30 06:13] LABS: BAND PERCENT MAN 5 % (0-8); BASOPHILS PERCENT MAN 0 % (0-2); EOSINOPHILS PERCENT MAN 0 % (0-6); LYMPHOCYTES ABSOLUTE MAN 0.08 K/mm3 (0.84-5.20); LYMPHOCYTES PERCENT MAN 1 % (21-46); METAMYELOCYTE ABSOLUTE MAN 0.24 K/mm3 (0.00-0.00); METAMYELOCYTE PERCENT MAN 3 % (0-0); MONOCYTES ABSOLUTE MAN 0.16 K/mm3 (0.16-1.47); MONOCYTES PERCENT MAN 2 % (4-13); MYELOCYTE ABSOLUTE MAN 0.41 K/mm3 (0.00-0.00); MYELOCYTE PERCENT MAN 5 % (0-0); NEUTROPHILS ABSOLUTE MAN 7.36 K/mm3 (1.96-9.15); SEG NEUTROPHILS PERCENT MAN 84 % (41-73); TOTAL CELLS COUNTED 100
--- NOTE | 2019-03-30 06:40 | NUR ---
PATIENT FINANCIAL SERVICES COORDINATOR SUMMARY PT A/O X1. STANDBY ASSIST TO COMMODE. 3 L O2 VIA NASAL CANNULA SATTING IN LOW 90'S. PT HAS BEEN BRADYCARDIC RANGING IN 48 TO LOW 60 BPM. CHARGE NURSE AWARE OF THIS. WILL MAKE AM NURSE AWARE. VSS, SLEPT WELL TONIGHT. NO ACUTE CHANGES.
--- NOTE | 2019-03-30 20:00 | NUR ---
SHIFT SUMMARY- PT HAS HAD NO ACUTE CHANGES T/O THE SHIFT. SHE IS AN [employer] PT. PT ON IV ABX THEN SL. PT INDEPENDENT IN THE ROOM. BACK PAIN TREATED WITH TYLENOL 3. PT STATED SHE HAS 3 DIFFERENT KINDS OF ARTHRITIS AND STATES HER HANDS FEEL AMAZING WITH THE EXTRA STEROID TREATMENTS. PT IS ON CHRONIC STEROIDS AT HOME. PT SISTER WAS IN TODAY AND INQUIRED TO WHOM SHE SHOULD SPEAK IF SHE HAD A CONCERN ABOUT THE CARE THE PT RECIEVED. CONTACTED THE PT ADVOCATE FOR THEM, SHE STATED HER CONCERN WAS RELATED TO THE 6 HOUR WAIT THE PT HAD TO BE SEEN IN THE ER. PT ADVOCATE CAME TO SEE THE PT.
--- NOTE | 2019-03-31 06:30 | NUR ---
SHIFT SUMMARY: A/OX4. MAKES NEEDS KNOWN. DENIES PAIN. 02 SAT 93% ON 2L VIA NC. DYSPNEA W/ EXERTION. EXP WHEEZE THROUGHOUT, INSP CRACKLES IN LEFT UPPER AND LEFT LOWER LOBE. NO RESP DISTRESS. BED LOW, CALL BUTTON IN REACH, WILL CONT TO MONITOR.
--- NOTE | 2019-03-31 17:29 | NUR ---
SUMMARY PT SITTING UP IN BED WATCHING TV, PT HAS BEEN PLEASANT AND COOPERATIVE WITH CARE, INDEPENDENT IN THE ROOM, OXYGEN DOWN TO HER HOME RATE OF 2L NC, PT UP TO THE SHOWER, VIDA WELL, NO COMPLAINTS, VSS, NO ACUTE CHANGES, PLAN TO DC IN AM, WILL CONTINUE TO MONITOR
--- NOTE | 2019-04-01 04:23 | NUR ---
SHIFT SUMMARY: A/OX4. COMMUNICATES NEEDS. 02 SAT 91-92% ON 2L VIA NC. CONT WITH EXERTIONAL SOB AT BASELINE. EXP WHEEZE AUSCULTATED THROUGHOUT AND INSPIRATORY CRACKLES TO LEFT UPPER AND RIGHT UPPER AND MID LOBES. ONGOING HARSH SOUNDING COUGH. PT REPORTS COUGH PRODUCING SMALL AMT OF WHITE SPUTUM. NO ACUTE CHANGES OVERNIGHT. WILL CONT TO MONITOR.
[2019-04-01] MEDS ORDERED: GUAI600T33 PO (12:21)
[2019-04-01] MEDS ORDERED: LISI20 PO (12:22)
[2019-04-01] MEDS ORDERED: AMLO10 PO (12:22)
[2019-04-01] MEDS ORDERED: LEVFLO500 PO (12:22)
[2019-04-01] MEDS ORDERED: Duoneb 2.5-0.5 M3 ML INH (12:22)
--- NOTE | 2019-04-01 13:57 | NUR ---
SUMMARY/DISCHARGE PT DISCHARGED TO HOME, PT VERBALIZED UNDERSTANDING OF DISCHARGE INSTRUCTIONS REGARDING FOLLOW UP AND MEDICATIONS, PT TAKEN OUT SAFELY VIA WHEELCHAIR
== END 2019-04-01 13:45 | disposition home or self-care (01) | DRG 193 ==
LOC: ER 11:11 → MEDS 20:40
PROVIDERS: Physician Assistant; ADMIT Internal Medicine
DX: J18.9 Pneumonia, unspecified organism (principal); J96.21 Acute and chronic respiratory failure with hypoxia; J44.1 Chronic obstructive pulmonary disease with (acute) exacerbation; J44.0 Chronic obstructive pulmonary disease with (acute) lower respiratory infection; I10 Essential (primary) hypertension; E03.9 Hypothyroidism, unspecified; F41.9 Anxiety disorder, unspecified; F32.9 Major depressive disorder, single episode, unspecified; G89.29 Other chronic pain; E78.5 Hyperlipidemia, unspecified; G47.30 Sleep apnea, unspecified; Z99.81 Dependence on supplemental oxygen; Z87.11 Personal history of peptic ulcer disease; Z85.3 Personal history of malignant neoplasm of breast; Z79.52 Long term (current) use of systemic steroids; Z79.899 Other long term (current) drug therapy; Z88.6 Allergy status to analgesic agent; Z88.8 Allergy status to other drugs, medicaments and biological substances
CPT/HCPCS: 0099U; 36415; 71046; 80048; 80053; 83605; 85025; 94640; 94760; 96365; 96366; 99285-25; A9270-GY; J0360; J1650; J1956; J2930; J7030; J7512

== ENCOUNTER 2019-09-03 12:41 | Day surgery (SDC) | payer OTHER ==
[~2019-09-03] VITALS: Ht 154.9 cm; Wt 90.7 kg
[~2019-09-03 12:41] MED LIST changes: -ALPR1 PO; +AMLO10 PO; +GUAI600T33 PO; -LEVSOD75 PO; -OMEPRAZOLE MAGN20 MG PO; +PROAIR RESPICL90 MCG INH; -SERT50 PO; +TOLT4 PO; -TYLECOD3 PO
== END 2019-09-03 16:58 | disposition home or self-care (01) ==
LOC: ORSCSDS 12:41
PROVIDERS: Orthopaedic Surgery
PROC: 0LB50ZZ Excision of Right Lower Arm and Wrist Tendon, Open Approach (ICD-10-PCS; principal; 2019-09-03 14:10)
DX: M67.431 Ganglion, right wrist (principal); I10 Essential (primary) hypertension; J44.9 Chronic obstructive pulmonary disease, unspecified; F17.210 Nicotine dependence, cigarettes, uncomplicated; Z99.81 Dependence on supplemental oxygen; E66.01 Morbid (severe) obesity due to excess calories; Z68.37 Body mass index [BMI] 37.0-37.9, adult; K21.9 Gastro-esophageal reflux disease without esophagitis; Z87.891 Personal history of nicotine dependence
CPT/HCPCS: 88304; J0171; J0690; J1100; J2250; J2405; J2704; J3010; J7120

== ENCOUNTER 2019-09-19 09:17 | Inpatient (IN) | payer OTHER ==
[~2019-09-19] VITALS: Ht 154.9 cm; Wt 90.1 kg
[2019-09-19 10:16] LABS: BASOPHILS ABSOLUTE AUTO 0.04 K/mm3 (0.00-0.23); BASOPHILS PERCENT AUTO 0 % (0-2); EOSINOPHILS ABSOLUTE AUTO 0.01 K/mm3 (0.00-0.68); EOSINOPHILS PERCENT AUTO 0 % (0-6); Hematocrit 35.5 % (33.0-51.0); Hemoglobin 10.4 g/dL (11.5-16.0); IMMATURE GRAN ABSOLUTE AUTO 0.16 K/mm3 (0.00-0.10); IMMATURE GRAN PERCENT AUTO 1 % (0-1); LYMPHOCYTES ABSOLUTE AUTO 0.37 K/mm3 (0.84-5.20); LYMPHOCYTES PERCENT AUTO 3 % (21-46); MONOCYTES ABSOLUTE AUTO 0.85 K/mm3 (0.16-1.47); MONOCYTES PERCENT AUTO 7 % (4-13); Mean Corpuscular HGB 28.3 pg (26.0-34.0); Mean Corpuscular HGB Conc 29.3 g/dL (31.5-36.5); Mean Corpuscular Volume 97 fL (80-100); Mean Platelet Volume 9.8 fL (9.1-12.4); NEUTROPHILS ABSOLUTE AUTO 10.01 K/mm3 (1.96-9.15); NEUTROPHILS PERCENT AUTO 88 % (41-73); Platelet Count 204 K/mm3 (150-400); RDW Coefficient Variation 14.6 % (11.7-14.2); RDW Standard Deviation 51.9 fL (35.1-46.3); Red Blood Cell Count 3.68 M/mm3 (3.80-5.20); White Blood Cell Count 11.44 K/mm3 (4.00-11.30)
[2019-09-19 10:53] LABS: Troponin I <0.015 ng/mL (0.000-0.040)
[2019-09-19 10:55] LABS: Alanine Aminotransfer (ALT/SGP 24 U/L (12-78); Albumin, Blood 3.2 g/dL (3.4-5.0); Albumin/Globulin Ratio 0.7 (0.8-1.8); Alk Phos 83 U/L (50-136); Anion Gap 10 mmol/L (6-16); Aspartate Aminotrans (AST/SGOT 22 U/L (12-37); Bilirubin, Total 0.2 mg/dL (0.1-1.0); Blood Urea Nitrogen 77 mg/dL (8-24); CO2, Blood 21 mmol/L (21-32); Calcium, Blood 8.7 mg/dL (8.5-10.1); Chloride, Blood 102 mmol/L (98-108); Creatinine, Blood 6.99 mg/dL (0.40-1.00); Globulin, Blood 4.4 g/dL (2.2-4.0); Glomerular Filtration Rate 6 (60-); Glucose, Blood 127 mg/dL (70-99); Potassium, Blood 6.1 mmol/L (3.5-5.5); Sodium, Blood 133 mmol/L (136-145); Total Protein, Blood 7.6 g/dL (6.4-8.2)
[2019-09-19 11:49] LABS: Base Excess Venous -10.6 mmol/L; Bicarbonate Venous 16.3 mmol/L (24.0-30.0); PCO2 Venous 50.6 mmHg (38-42); PO2 Venous 159 mmHg (38-42)
[2019-09-19 11:50] LABS: pH Blood Venous 7.16 (7.34-7.37)
[2019-09-19 12:19] LABS: Blood, Urine 1+ (Neg); Glucose Qualitative, Urine Neg (Neg); Ketones, Urine Neg (Neg); Leukocyte Esterase, Urine Neg (Neg); Nitrite, Urine Neg (Neg); Protein, Urine 2+ (Neg); Specific Gravity, Urine 1.025 (1.003-1.022); Urobilinogen, Urine NORM (Normal)
[2019-09-19 12:29] LABS: Bilirubin, Urine 2+ (Neg)
[2019-09-19 12:33] LABS: Appearance, Urine Hazy (Clear); Color, Urine Yellow (P-Yellow)
[2019-09-19 12:34] LABS: Amorphous Light (0-Heavy); Bacteria Not Seen /hpf; Red Blood Cells, Urine 0-2 /hpf (0-2); Squamous Epithelial Cells Few /hpf (Few); White Blood Cells, Urine Not Seen /hpf (0-5)
[2019-09-19] MEDS ORDERED: TUDORZA PRESS400 MC1 INH (12:50)
[2019-09-19] MEDS ORDERED: Oxybutynin Chlo15 MG PO (13:35)
[2019-09-19] MEDS ORDERED: TYLECOD3 PO (13:37)
[2019-09-19] MEDS ORDERED: LISI20 PO (13:38)
[2019-09-19] MEDS ORDERED: Prednisone2.5 MG PO (13:41)
[2019-09-19] MEDS ORDERED: ALPR1 PO (13:43)
[2019-09-19] MEDS ORDERED: OMEPRAZOLE MAGN20 MG PO (13:43)
[2019-09-19] MEDS ORDERED: SERT100 PO (13:44)
[2019-09-19] MEDS ORDERED: LEVSOD75 PO (13:44)
[2019-09-19] MEDS ORDERED: SYMBICORT 80-10.2 GM INH (13:59)
[2019-09-19] MEDS ORDERED: IPRAT-ALBUT 0.5-3 ML NEB (14:00)
[2019-09-19] MEDS ORDERED: METO25ER PO (17:56)
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
[2019-09-19 18:17] LABS: Bun/Creatinine Ratio 11.5 (12.0-20.0); Calcium, Blood 8.5 mg/dL (8.5-10.1); Creatinine, Blood 6.26 mg/dL (0.40-1.00); Potassium, Blood 5.6 mmol/L (3.5-5.5)
[2019-09-20 03:55] LABS: BASOPHILS ABSOLUTE AUTO 0.01 K/mm3 (0.00-0.23); BASOPHILS PERCENT AUTO 0 % (0-2); EOSINOPHILS ABSOLUTE AUTO 0.02 K/mm3 (0.00-0.68); EOSINOPHILS PERCENT AUTO 0 % (0-6); Hematocrit 31.8 % (33.0-51.0); Hemoglobin 9.5 g/dL (11.5-16.0); IMMATURE GRAN PERCENT AUTO 1 % (0-1); LYMPHOCYTES ABSOLUTE AUTO 0.15 K/mm3 (0.84-5.20); LYMPHOCYTES PERCENT AUTO 2 % (21-46); MONOCYTES ABSOLUTE AUTO 0.34 K/mm3 (0.16-1.47); MONOCYTES PERCENT AUTO 4 % (4-13); Mean Corpuscular HGB Conc 29.9 g/dL (31.5-36.5); Mean Corpuscular Volume 94 fL (80-100); Mean Platelet Volume 9.9 fL (9.1-12.4); NEUTROPHILS ABSOLUTE AUTO 8.64 K/mm3 (1.96-9.15); NEUTROPHILS PERCENT AUTO 93 % (41-73); Platelet Count 191 K/mm3 (150-400); RDW Coefficient Variation 14.4 % (11.7-14.2); RDW Standard Deviation 49.6 fL (35.1-46.3); Red Blood Cell Count 3.39 M/mm3 (3.80-5.20); White Blood Cell Count 9.26 K/mm3 (4.00-11.30)
[2019-09-20 04:25] LABS: Magnesium, Blood 2.3 mg/dL (1.6-2.4)
[2019-09-20 04:40] LABS: Alanine Aminotransfer (ALT/SGP 21 U/L (12-78); Albumin/Globulin Ratio 0.8 (0.8-1.8); Alk Phos 74 U/L (50-136); Anion Gap 6 mmol/L (6-16); Aspartate Aminotrans (AST/SGOT 23 U/L (12-37); Bilirubin, Total 0.2 mg/dL (0.1-1.0); Blood Urea Nitrogen 71 mg/dL (8-24); Bun/Creatinine Ratio 14.4 (12.0-20.0); CO2, Blood 24 mmol/L (21-32); Calcium, Blood 8.7 mg/dL (8.5-10.1); Chloride, Blood 106 mmol/L (98-108); Creatinine, Blood 4.92 mg/dL (0.40-1.00); Glomerular Filtration Rate 9 (60-); Glucose, Blood 104 mg/dL (70-99); Phosphorus, Blood 5.8 mg/dL (2.5-4.9); Potassium, Blood 6.1 mmol/L (3.5-5.5); Sodium, Blood 136 mmol/L (136-145)
--- NOTE | 2019-09-20 05:54 | NUR ---
SHIFT SUMMARY PT INTERMITTENTLY ALERT, OPENS EYES SPONTANEOUSLY, SPEECH INTERMITTENTLY CLEAR, INTERMITTENLTY INCOMPREHENSIBLE W/ PT MUMBLING TO SELF IN RM. PT UNABLE TO STATE NAME & . PT DID CONFIRM "YES" WHEN PT's NAME & STATED TO PT. POTASSIUM LEVEL CRITICALLY HIGH THIS AM. MD SIFUENTES NOTIFIED W/ MD ORDERS FOR IV INSULIN, DEXTROSE, & CALCIUM GLUCONATE, SEE EMAR. PT W/ ABSCESS ON R WRIST, DRAINING YELLOW/RED, THICK DISCHARGE. SITE CLEANSED & REDRESSED W/ GAUZE. PHOTO TAKEN. Q2H REPOSITIONING PROVIDED. JAIMES CATH PATENT & DRAINING. SODIUM BICARB GTT INFUSING PER ORDERS. WILL CONTINUE TO MONITOR & PROVIDE CARE UNTIL REPORT OFF TO DAY SHIFT RN.
--- NOTE | 2019-09-20 07:39 | NUR ---
SPOKE WITH DR. RM REGARDING POTASSIUM OF 6.0. TELEPHONE ORDERS GIVEN FOR 1 AMP D50, 10 UNITS IV REGULAR INSULIN, D5 NS AT 75ML/HR. STAT POTASSIUM LAB AT 1200.
[2019-09-20 11:54] LABS: PCO2 Arterial 51.7 mmHg (35-45); PO2 Arterial 75.2 mmHg (80-100); pH Blood Arterial 7.28 (7.35-7.45)
--- NOTE | 2019-09-20 18:18 | NUR ---
SHIFT SUMMARY; CONFUSED DURING MOST OF SHIFT TODAY. A/A/OX3 WITH INTERMITANT TALKING TO SELF AND CONFUSION. BIPAP STARTED TODAY PER ORDERS WITH SETTINGS 14/7 AND 2L 02. JAIMES IN PLACE, 24 HOUR URINE COLLECTION STARTED. D5 NS INFUSING AT 75ML/HR AT THIS TIME. HYPERKALEMIA TREATED MULTIPLE TIMES DURING SHIFT PER MED ORDERS FROM DR. RM. WILL CONTINUE TO TREAT AND MONITOR UNTIL CHANGE OF SHIFT.
[2019-09-21 04:27] LABS: Hematocrit 31.5 % (33.0-51.0); Hemoglobin 9.3 g/dL (11.5-16.0)
[2019-09-21 04:43] LABS: Albumin, Blood 2.7 g/dL (3.4-5.0); Anion Gap 2 mmol/L (6-16); Blood Urea Nitrogen 55 mg/dL (8-24); Bun/Creatinine Ratio 25.2 (12.0-20.0); CO2, Blood 31 mmol/L (21-32); Calcium, Blood 8.8 mg/dL (8.5-10.1); Chloride, Blood 109 mmol/L (98-108); Creatinine, Blood 2.18 mg/dL (0.40-1.00); Glomerular Filtration Rate 23 (60-); Glucose, Blood 164 mg/dL (70-99); Magnesium, Blood 2.2 mg/dL (1.6-2.4); Phosphorus, Blood 3.6 mg/dL (2.5-4.9); Potassium, Blood 5.5 mmol/L (3.5-5.5); Sodium, Blood 142 mmol/L (136-145)
--- NOTE | 2019-09-21 05:02 | NUR ---
SHIFT SUMMARY PT ALERT, ENGAGING SOME W/ STAFF NOW. PT STATING "HELP" REPETITIVELY, MULTIPLE TIMES T/O SHIFT. WHEN ASKING PT WHAT PT NEEDS HELP WITH, PT RESPONDS "I DON'T KNOW." WHEN ASKING PT IF PT NEEDS ANYTHING, PT STATES "NO", THEN CONTINUES TO SAY "HELP." PT DENYING PAIN, DENYING NEED FOR HELP, & DENIES KNOWING WHY SHE's SAYING "HELP" OVER & OVER, THEN STATES FLATLY, "I'M SORRY, IT'S THE ONLY WORD I CAN THINK OF. HELP.. HELP.. HELP.." PT ABLE TO FOLLOW SOME INSTRUCTIONS. VSS. TOLERATING BIPAP: 27/08 W/ 2L BLEED IN T/O SHIFT. MONITOR SHOWING SB-SR, HR 50's-60's. JAIMES CATH PATENT & DRAINING. URINE ON ICE FOR 24 HR URINE COLLECTION. R WRIST ABSCESS DRESSED W/ GAUZE & COBAN. D5 NS GTT INFUSING PER ORDERS. WILL CONTINUE TO MONITOR & PROVIDE CARE UNTIL REPORT OFF TO DAY SHIFT RN.
--- NOTE | 2019-09-21 08:33 | NUR ---
pt laying in bed awake eating breakfast, pleasant and cooperative with care, follows commands well, understands she is in the hosp, but has no recolection of coming in, a/ox3, lungs are clear t/o, resp even and unlabored, is curretnly on 2 liters 02 via n/c, no cough noted, hrr, tele in place running sr per monitor, see strip, no edema noted, ppp+2, cap refill <3sec, vs stable, afebrile, iv sites are clear and patent, power glide to left upper arm, site is clear and patent, btx4, abd round soft nontender, voids via chávez cath at this time, 24 hr urine in process, will take to lab at 1400, skin is frail, has a dressing to right wrist, leyla juan, call light in reach.
--- NOTE | 2019-09-21 15:29 | NUR ---
PT IS BEING TRANSFERED TO MEDICAL FLOOR, REPORT WAS GIVEN TO RECIEVING NURSE, WILL BE TRANSFERED VIA WHEELCHAIR, WITH ALL BELONGINGS.
[2019-09-21 16:42] LABS: Protein, Urine Quantitative 63.9 mg/dL (0.0-11.9)
--- NOTE | 2019-09-21 16:51 | NUR ---
PT ARRIVED TO THE UNIT VIA BED. ORIENTED TO THE UNIT. TRANSFER FROM U.
[2019-09-21 17:11] LABS: Eosinophils-Raw #,Urine 1
--- NOTE | 2019-09-22 04:23 | NUR ---
SHIFT SUMMARY PATIENT HAD NO ACUTE CHANGES OBSERVED. AXOX 3 AND BEDREST. TAKES MEDICATION WHOLE WITH WATER. POWERGLIDE FAITH INTACT. PIV REMAINS INTACT. D5W-NS INFUSING AT 50 mL/HR. ON 2L O2 NC. DENIES PAIN, SOB, AND N/V. JAIMES PATENT AND DRAINING. CBG 150. COOPERATIVE WITH CARE. CALL LIGHT IN REACH. BED IN LOWEST POSITION. WILL CONTINUE TO MONITOR UNTIL DAY SHIFT NURSE ASSUMES CARE.
--- NOTE | 2019-09-22 05:13 | NUR ---
BP 175/79 AND IV APRESOLINE 10 MG GIVEN PER EMAR. BP REASSESS 158/71. CALL LIGHT IN REACH.
[2019-09-22 08:58] LABS: Albumin, Blood 3.1 g/dL (3.4-5.0); Anion Gap 3 mmol/L (6-16); Blood Urea Nitrogen 43 mg/dL (8-24); Bun/Creatinine Ratio 31.4 (12.0-20.0); CO2, Blood 28 mmol/L (21-32); Calcium, Blood 9.1 mg/dL (8.5-10.1); Chloride, Blood 109 mmol/L (98-108); Creatinine, Blood 1.37 mg/dL (0.40-1.00); Glomerular Filtration Rate 40 (60-); Glucose, Blood 138 mg/dL (70-99); Phosphorus, Blood 1.6 mg/dL (2.5-4.9); Potassium, Blood 4.7 mmol/L (3.5-5.5); Sodium, Blood 140 mmol/L (136-145)
[2019-09-22] MEDS ORDERED: AMLO10 PO (14:38)
--- NOTE | 2019-09-22 16:31 | NUR ---
PATIENT DISCHARGE: PATIENT DISCHARGED TO HOME THIS SHIFT. MEDICATION RECONCILIATION COMPLETED; MED LIST FAXED TO [facility]. DISCHARGE EDUCATION COMPLETED WITH PATIENT. PATIENT TRANSPORTED TO EXIT BY [facility] STAFF WITH WHEELCHAIR AT 1455. PATIENT DEPARTED [facility] VIA PRIVATE AUTO.
[2019-09-24 10:08] LABS: ANTIGLOMERULAR BM AB 3 units (0-20)
[2019-09-25 13:10] LABS: ALBUMIN 2.7 g/dL (2.9-4.4); ALPHA-1-GLOBULIN 0.3 g/dL (0.0-0.4); ALPHA-2-GLOBULIN 0.8 g/dL (0.4-1.0); ANA DIRECT Positive (Negative); ANTI-CENTROMERE B ANTIBODIES <0.2 AI (0.0-0.9); ANTI-DNA (DS) AB QN 3 IU/mL (0-9); ANTI-JO-1 <0.2 AI (0.0-0.9); ANTICHROMATIN ANTIBODIES <0.2 AI (0.0-0.9); ANTIMYELOPEROXIDASE (MPO) ABS <9.0 U/mL (0.0-9.0); ANTIPROTEINASE 3 (PR-3) ABS <3.5 U/mL (0.0-3.5); ANTIRIBOSOMAL P ANTIBODIES <0.2 AI (0.0-0.9); ANTISCLERODERMA-70 ANTIBODIES <0.2 AI (0.0-0.9); ATYPICAL PANCA <1:20 titer (Neg:<1:20); BETA GLOBULIN 1.1 g/dL (0.7-1.3); CYTOPLASMIC (C-ANCA) <1:20 titer (Neg:<1:20); GAMMA GLOBULIN 0.8 g/dL (0.4-1.8); IMMUNOGLOBULIN A, QN, SERUM 292 mg/dL (64-422); IMMUNOGLOBULIN G, QN, SERUM 840 mg/dL (586-1602); IMMUNOGLOBULIN M, QN, SERUM 107 mg/dL (26-217); M-SPIKE Not Observed g/dL (Not Observed); PERINUCLEAR (P-ANCA) <1:20 titer (Neg:<1:20); PROTEIN, TOTAL, SERUM 5.7 g/dL (6.0-8.5); RNP ANTIBODIES 6.3 AI (0.0-0.9); SJOGREN'S ANTI-SS-A <0.2 AI (0.0-0.9); SJOGREN'S ANTI-SS-B <0.2 AI (0.0-0.9); SMITH ANTIBODIES <0.2 AI (0.0-0.9); SMITH/RNP ANTIBODIES <0.2 AI (0.0-0.9)
[2019-09-26 13:08] LABS: M-SPIKE, % Not Observed % (Not Observed)
== END 2019-09-22 14:57 | disposition home or self-care (01) | DRG 682 ==
LOC: ER 09:17 → PCU 09:18 → MEDS 14:49 → PCU 14:49 → MEDS 09-21 15:38
PROVIDERS: Internal Medicine; Internal Medicine Nephrology; Physician Assistant; ADMIT Internal Medicine
DX: N17.0 Acute kidney failure with tubular necrosis (principal); G93.41 Metabolic encephalopathy; J96.21 Acute and chronic respiratory failure with hypoxia; J96.22 Acute and chronic respiratory failure with hypercapnia; E87.1 Hypo-osmolality and hyponatremia; E87.2 Acidosis; F19.20 Other psychoactive substance dependence, uncomplicated; J44.1 Chronic obstructive pulmonary disease with (acute) exacerbation; E87.5 Hyperkalemia; Z20.828 Contact with and (suspected) exposure to other viral communicable diseases; D64.9 Anemia, unspecified; D89.2 Hypergammaglobulinemia, unspecified; E03.9 Hypothyroidism, unspecified; E78.5 Hyperlipidemia, unspecified; E86.0 Dehydration; F41.8 Other specified anxiety disorders; G47.33 Obstructive sleep apnea (adult) (pediatric); G89.29 Other chronic pain; I73.9 Peripheral vascular disease, unspecified; I12.9 Hypertensive chronic kidney disease with stage 1 through stage 4 chronic kidney disease, or unspecified chronic kidney disease; E11.22 Type 2 diabetes mellitus with diabetic chronic kidney disease; N18.9 Chronic kidney disease, unspecified; Z87.891 Personal history of nicotine dependence; Z87.01 Personal history of pneumonia (recurrent); Z85.3 Personal history of malignant neoplasm of breast; E86.9 Volume depletion, unspecified; E88.09 Other disorders of plasma-protein metabolism, not elsewhere classified
CPT/HCPCS: 36415; 36600; 51702; 71045; 71250; 76770; 80048; 80053; 80069; 81001; 81050; 82550; 82784; 82803; 82947; 83516; 83520; 83605; 83735; 83880; 84100; 84132; 84145; 84156; 84165; 84166; 84484; 85014; 85018; 85025; 86038; 86256; 86334; 86335; 87205; 93005; 93010; 94640; 94660; 94760; 94762; 96361-59; 96365-59; 96375-59; 97110; 97116; 97162; 97165; 99285-25; A9270; A9270-GY; J0360; J0610; J0881; J1644; J1815; J2920; J7030; J7042; J7070; J7120; J7799; U0002; U0003

== ENCOUNTER → 2019-10-16 | Outpatient (CLI) | payer OTHER ==
[~2019-10-16] MED LIST changes: +ALPR1 PO; +IPRAT-ALBUT 0.5-3 ML NEB; +LEVSOD75 PO; +METO25ER PO; +OMEPRAZOLE MAGN20 MG PO; +Oxybutynin Chlo15 MG PO; +Prednisone2.5 MG PO; +SERT100 PO; +SYMBICORT 80-10.2 GM INH; +TUDORZA PRESS400 MC1 INH; +TYLECOD3 PO
[2019-10-16 11:18] LABS: Source, Urine Clean Catch
[2019-10-16 14:19] LABS: Appearance, Urine Clear (Clear); Bilirubin, Urine Neg (Neg); Blood, Urine Neg (Neg); Color, Urine Yellow (P-Yellow); Glucose Qualitative, Urine Neg (Neg); Ketones, Urine Neg (Neg); Leukocyte Esterase, Urine Neg (Neg); Nitrite, Urine Neg (Neg); Protein, Urine Neg (Neg); Specific Gravity, Urine 1.015 (1.003-1.022); Urobilinogen, Urine NORM (Normal)
[2019-10-16 14:39] LABS: Creatinine, Urine Random 34.4 mg/dL (27.00-270.00); Protein, Urine Random 9.6 mg/dL (0.0-11.9)
== END | disposition home or self-care (01) ==
LOC: LAB SHORT 11:00 → LAB 11:00
PROVIDERS: Internal Medicine
DX: N17.9 Acute kidney failure, unspecified (principal)
CPT/HCPCS: 81003; 82570; 84156

== ENCOUNTER 2020-01-20 01:46 | Inpatient (IN) | payer OTHER ==
[~2020-01-20] VITALS: Ht 152.4 cm; Wt 85.0 kg
[2020-01-20 02:44] LABS: BASOPHILS ABSOLUTE AUTO 0.03 K/mm3 (0.00-0.23); BASOPHILS PERCENT AUTO 1 % (0-2); EOSINOPHILS ABSOLUTE AUTO 0.16 K/mm3 (0.00-0.68); EOSINOPHILS PERCENT AUTO 3 % (0-6); Hematocrit 35.1 % (33.0-51.0); Hemoglobin 10.1 g/dL (11.5-16.0); IMMATURE GRAN ABSOLUTE AUTO 0.03 K/mm3 (0.00-0.10); IMMATURE GRAN PERCENT AUTO 1 % (0-1); LYMPHOCYTES ABSOLUTE AUTO 0.76 K/mm3 (0.84-5.20); LYMPHOCYTES PERCENT AUTO 16 % (21-46); MONOCYTES ABSOLUTE AUTO 0.58 K/mm3 (0.16-1.47); MONOCYTES PERCENT AUTO 12 % (4-13); Mean Corpuscular HGB 27.1 pg (26.0-34.0); Mean Corpuscular HGB Conc 28.8 g/dL (31.5-36.5); Mean Corpuscular Volume 94 fL (80-100); Mean Platelet Volume 9.6 fL (9.1-12.4); NEUTROPHILS ABSOLUTE AUTO 3.28 K/mm3 (1.96-9.15); NEUTROPHILS PERCENT AUTO 68 % (41-73); Platelet Count 219 K/mm3 (150-400); RDW Coefficient Variation 14.3 % (11.7-14.2); RDW Standard Deviation 50.1 fL (35.1-46.3); Red Blood Cell Count 3.73 M/mm3 (3.80-5.20); White Blood Cell Count 4.84 K/mm3 (4.00-11.30)
[2020-01-20 02:57] LABS: Albumin, Blood 3.3 g/dL (3.4-5.0); Albumin/Globulin Ratio 0.8 (0.8-1.8); Bilirubin, Total 0.1 mg/dL (0.1-1.0); Bun/Creatinine Ratio 19.5 (12.0-20.0); Calcium, Blood 9.4 mg/dL (8.5-10.1); Creatinine, Blood 3.38 mg/dL (0.40-1.00); Globulin, Blood 3.9 g/dL (2.2-4.0); Potassium, Blood 5.8 mmol/L (3.5-5.5); Total Protein, Blood 7.2 g/dL (6.4-8.2)
[2020-01-20 03:38] LABS: Source, Urine Clean Catch
[2020-01-20 03:40] LABS: Bilirubin, Urine Neg (Neg); Blood, Urine Neg (Neg); Glucose Qualitative, Urine Neg (Neg); Ketones, Urine Neg (Neg); Leukocyte Esterase, Urine 1+ (Neg); Nitrite, Urine Neg (Neg); Protein, Urine 1+ (Neg); Specific Gravity, Urine 1.025 (1.003-1.022); Urobilinogen, Urine NORM (Normal)
[2020-01-20 03:50] LABS: U Amphetamine Screen Not Detected; U Barbituate Screen Not Detected; U Benzodiazapine Screen Not Detected; U Buprenorphine Screen Not Detected; U Cannabinoids Screen Not Detected; U Cocaine Screen Not Detected; U Methadone Screen Not Detected; U Methamphetamine Screen Not Detected; U Opiates Screen DETECTED; U Oxycodone Screen Not Detected; U Phencyclidine Screen Not Detected; U Propoxyphene Screen Not Detected
[2020-01-20 03:59] LABS: Appearance, Urine Hazy (Clear); Color, Urine Yellow (P-Yellow)
[2020-01-20 04:01] LABS: Amorphous Mod (0-Heavy); Bacteria Few /hpf; Hyaline Casts 25-50 /lpf (0-2); Mucus Light (0-Heavy); Red Blood Cells, Urine Not Seen /hpf (0-2); Squamous Epithelial Cells Rare /hpf (Few)
[2020-01-20] MEDS ORDERED: Ventolin/Prove6.7 GM INH (05:42)
[2020-01-20] MEDS ORDERED: METO25ER PO (05:43)
[2020-01-20 09:07] LABS: Eosinophils-Raw #,Urine 0
[2020-01-20] MEDS ORDERED: ZOLOFT100 M3 PO (13:03)
[2020-01-20] MEDS ORDERED: LISI20 PO (13:04)
[2020-01-20 14:24] LABS: Potassium, Blood 5.3 mmol/L (3.5-5.5); Uric Acid, Blood 7.9 mg/dL (2.6-6.0)
--- NOTE | 2020-01-20 16:42 | NUR ---
ASSUMED CARE FROM ER. PT ARRIVED TO THE PCU AROUND 1410. PT HAD JAIMES IN PLACE, BICARB WITH 1/2NS RUNNING, DR RM LOWERED THE RATE TO 50MLS/HR. PT HAD STABLE VS, ON 4L O2, PT USES 2L VIA NC AT HOME. PT HAD LOW CBG IN ER, RECHECK UPON ADMISSION TO THE FLOOR SHOWED CBG 93; DR RM NOTIFIED. PT ALSO HAD A SNACK UPON ARRIVING TO THE FLOOR. TELE BOX VERIFIED, PT NSR WITH OCCASSIONALLY PAC, HR 70S. PT AGREED TO A FLU SHOT AFTER COMPLETING THE ADMISSION ASSESSMENT AND SCREENINGS. PT IS RESTING AT THIS TIME.
--- NOTE | 2020-01-20 16:59 | NUR ---
DIET UPDATE PT IS WAITING FOR HER DENTURES SHE WAS RECENTLY FITTED AFTER HAVING TEETH PULLED. SHE WOULD LIKE A SOFT BITE SIZED REGULAR DIET AT THIS TIME.
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
[2020-01-21 04:12] LABS: Hemoglobin 9.1 g/dL (11.5-16.0)
[2020-01-21 04:28] LABS: Albumin, Blood 2.9 g/dL (3.4-5.0); Anion Gap 3 mmol/L (6-16); Blood Urea Nitrogen 38 mg/dL (8-24); Bun/Creatinine Ratio 31.4 (12.0-20.0); CO2, Blood 27 mmol/L (21-32); Calcium, Blood 8.9 mg/dL (8.5-10.1); Chloride, Blood 113 mmol/L (98-108); Creatinine, Blood 1.21 mg/dL (0.40-1.00); Glomerular Filtration Rate 46 (60-); Glucose, Blood 101 mg/dL (70-99); Magnesium, Blood 2.1 mg/dL (1.6-2.4); Phosphorus, Blood 2.4 mg/dL (2.5-4.9); Sodium, Blood 143 mmol/L (136-145)
--- NOTE | 2020-01-21 06:16 | NUR ---
SHIFT SUMMARY PT ALERT, ORIENTED TO SELF, FAMILY, SITUATION. FOLLOWS DIRECTIONS AND USES CALL LIGHT APPROPRIATELY. SP02>92% ON 3L NC. TELEMETRY READS SR, HR 50'S-60'S. Q2H TURNS. PT C/O OF R ARM/SHOULDER PAIN. MEDICATED WITH TYLENOL PER EMAR AND PROVIDED HEATING PAD, WHICH PT LIKED. JAIMES CATHETER ON ICE, DRAINING TO GRAVITY FOR 24 HOUR URINE COLLECTION. PT TALKED TO SON, BRITTNEY, ON PHONE BEGINNING OF SHIFT. BRITTNEY ASKED FOR DR RM TO CALL HIM FOR AN UPDATE ON MOMS KIDNEYS. DR RM IN TO SEE PT THIS AM. GAVE MD SUJEY LUGO'S NUMBER TO CALL. MD MR WITH ORDERS TO D/C SODIUM BICARB DRIP. D51/2NS INFUSING PER EMAR. CALL LIGHT IN REACH. WILL CONTINUE TO MONITOR.
--- NOTE | 2020-01-21 18:28 | NUR ---
SHIFT SUMMARY PT IS ALERT AND ORIENTEDx4, USES CALL LIGHT APPROPRIATELY. STATUS CHANGE TO MEDICAL STATUS THIS MORNING. 24HOUR URINE COMPLETED THIS AFTERNOON AND SENT TO LAB. JAIMES REMAINS IN PLACE FOR I/0'S. PHYSICAL AND OCCUPATIONAL THERAPY WAS ABLE TO WORK WITH PT TODAY. 1 PERSON ASSIST IN ROOM, UP TO CHAIR OR BSC. 02 NEEDS WERE DECREASED TO HOME O2 SETTINGS. VITALS HAVE BEENS STABLE, TELEMETRY D/C'D TODAY. PRIOR TO REMOVAL PT WAS IN SINUS RHYTHM.
--- NOTE | 2020-01-21 23:10 | NUR ---
24 HOUR URINE UPDATE LAB CALLED AND REPORTED THAT THEY WERE UNABLE TO COLLECT EVERTHING THEY NEEDED FROM THE PREVIOUS 24 HOUR URINE. STATES THEY NEED ANOTHER 24 HOUR URINE TO BE COLLECTED. 24 HOUR URINE INITIATED AT 2300, JAIMES EMPTIED AND PLACED ON ICE AT THAT TIME.
--- NOTE | 2020-01-21 23:32 | NUR ---
UPDATE PATIENT'S BLOOD PRESSURE CONTINUES TO BE ELEVATED AFTER PO MEDICATIONS GIVEN. DR SIFUENTES NOTIFIED AND TELE REORDERED SO THAT IV LABETALOL CAN BE GIVEN.
[2020-01-22 04:13] LABS: BASOPHILS ABSOLUTE AUTO 0.01 K/mm3 (0.00-0.23); BASOPHILS PERCENT AUTO 0 % (0-2); EOSINOPHILS ABSOLUTE AUTO 0.14 K/mm3 (0.00-0.68); EOSINOPHILS PERCENT AUTO 3 % (0-6); Hematocrit 31.5 % (33.0-51.0); Hemoglobin 9.3 g/dL (11.5-16.0); IMMATURE GRAN ABSOLUTE AUTO 0.03 K/mm3 (0.00-0.10); IMMATURE GRAN PERCENT AUTO 1 % (0-1); LYMPHOCYTES ABSOLUTE AUTO 0.68 K/mm3 (0.84-5.20); LYMPHOCYTES PERCENT AUTO 15 % (21-46); MONOCYTES ABSOLUTE AUTO 0.54 K/mm3 (0.16-1.47); MONOCYTES PERCENT AUTO 12 % (4-13); Mean Corpuscular HGB Conc 29.5 g/dL (31.5-36.5); Mean Corpuscular Volume 92 fL (80-100); Mean Platelet Volume 9.7 fL (9.1-12.4); NEUTROPHILS ABSOLUTE AUTO 3.18 K/mm3 (1.96-9.15); NEUTROPHILS PERCENT AUTO 69 % (41-73); Platelet Count 173 K/mm3 (150-400); RDW Coefficient Variation 13.7 % (11.7-14.2); RDW Standard Deviation 46.5 fL (35.1-46.3); Red Blood Cell Count 3.44 M/mm3 (3.80-5.20); White Blood Cell Count 4.58 K/mm3 (4.00-11.30)
[2020-01-22 04:40] LABS: Alanine Aminotransfer (ALT/SGP 21 U/L (12-78); Albumin, Blood 2.8 g/dL (3.4-5.0); Albumin/Globulin Ratio 0.8 (0.8-1.8); Alk Phos 77 U/L (50-136); Anion Gap 3 mmol/L (6-16); Aspartate Aminotrans (AST/SGOT 14 U/L (12-37); Bilirubin, Total 0.3 mg/dL (0.1-1.0); Blood Urea Nitrogen 17 mg/dL (8-24); Bun/Creatinine Ratio 18.6 (12.0-20.0); CO2, Blood 28 mmol/L (21-32); Calcium, Blood 9.2 mg/dL (8.5-10.1); Chloride, Blood 112 mmol/L (98-108); Creatinine, Blood 0.92 mg/dL (0.40-1.00); Globulin, Blood 3.7 g/dL (2.2-4.0); Glomerular Filtration Rate >60 (60-); Glucose, Blood 105 mg/dL (70-99); Magnesium, Blood 1.8 mg/dL (1.6-2.4); Potassium, Blood 4.3 mmol/L (3.5-5.5); Sodium, Blood 143 mmol/L (136-145); Total Protein, Blood 6.5 g/dL (6.4-8.2)
--- NOTE | 2020-01-22 06:40 | NUR ---
SHIFT SUMMARY PATIENT VERY PLEASENT AND COOPERATIVE THROUGHOUT THE NIGHT. PATIENT MEDICATED FOR HIGH BLOOD PRESSURE PER EMAR. PATIENT APPEARED TO SLEEP WELL ON AND OFF THROUGHOUT THE NIGHT. PATIENT'S IV FLUIDS RUNNING PER ORDERS. PATIENT APPEARED TO BE ABLE TO TURN SELF ABOUT IN BED. 24 HOUR URINE BEING COLLECTED, JAIMES ON ICE, ORANGE BUCKET ON ICE. PATIENT CURRENTLY APPEARS TO BE ALSEEP. WILL CONTINUE TO MONITOR PATIENT AND REPORT TO ONCOMING RN.
--- NOTE | 2020-01-22 11:09 | NUR ---
DR RODRIGUEZ NOTIFIED OF PT HAVING MULTIPLE EPISODES OF DIARRHEA TODAY. ORDERS RECEIVED. PT PLACED ON ISOLATION FOR R/O C-DIFF. PROBIOTIC ORDER RECIEVED.
--- NOTE | 2020-01-22 18:08 | NUR ---
SHIFT SUMMARY PT IS ALERT AND ORIENTEDx4, ABLE TO EXPRESS NEEDS, USES CALL LIGHT APPROPRIATELY. TODAY PT HAD MULTIPLE EPISODES OF DIARRHEA, C-DIFF NEGATIVE. STARTED ON PROBIOTIC. THIS EVENING PT WAS HYPERTENSIVE, PRN ANTIHYPERTENSIVE GIVEN, SEE EMARMichi JAIMES REMAINS IN PLACE, DRAINING TO GRAVITIY. PT ON HOME O2 OF 2L. VITALS REMAIN STABLE, TELEMETERY HAS SHOWN PT TO BE SINUS ASHLEIGH/RHYTHM WITH RATES 50'S-60'S.
[2020-01-23 04:00] LABS: Hematocrit 33.2 % (33.0-51.0); Hemoglobin 9.7 g/dL (11.5-16.0)
[2020-01-23 04:22] LABS: Albumin, Blood 2.8 g/dL (3.4-5.0); Anion Gap 3 mmol/L (6-16); Blood Urea Nitrogen 7 mg/dL (8-24); Bun/Creatinine Ratio 8.9 (12.0-20.0); CO2, Blood 29 mmol/L (21-32); Chloride, Blood 111 mmol/L (98-108); Creatinine, Blood 0.79 mg/dL (0.40-1.00); Glomerular Filtration Rate >60 (60-); Glucose, Blood 93 mg/dL (70-99); Magnesium, Blood 1.7 mg/dL (1.6-2.4); Phosphorus, Blood 2.4 mg/dL (2.5-4.9); Potassium, Blood 3.9 mmol/L (3.5-5.5); Sodium, Blood 143 mmol/L (136-145)
--- NOTE | 2020-01-23 06:30 | NUR ---
SHIFT SUMMARY PT A&O X 4; MAKES NEEDS KNOWN & COMPLIANT W/ CARE; DENIES CHEST PAIN; VSS; NOTIFIED BY COMBINATION TECHNICIAN OF SHORT RUN OF AFIB THIS AM; PT ASSYMPTOMATIC; HR REMAINED BELOW 80 WHEN IN AFIB; CONVERTED BACK TO NSR; O2 SATS >93 ON 2L NC; PT STATES BASELINE; JAIMES PATENT & DRAINING CLEAR YELLOW; CALL LIGHT IN REACH; BED IN LOWEST POSITION; WILL CONTINUE TO MONITOR CLOSELY UNTIL HAND OFF TO DAY SHIFT RN.
--- NOTE | 2020-01-23 09:45 | NUR ---
PT CONVERTED TO AFIB THIS AM, PT WAS EATING BREAKFAST AND WAS NOT FEELING ANY SYMPTOMS WHEN ASKED, RATE RANGING 140-160'S, CONFIRMED ON THE EKG THAT PT WAS ON AFIB RHYTHM NEW ONSET. DR RODRIGUEZ MADE AWARE PT WAS GIVEN IR OF METOPROLOL 25MG, METOPROLOL XL INCREASED TO 50 MG BID. PT IS NOW AFIB/AFLUTTER ON THE MONITOR RATE 70'S LOOKS LIKE TRYING TO CONVERT BACK TO SR. PT DENIES ANY CHEST PAIN/PALPITATIONS. NO OTHER ISSUES AT THIS TIME, PT RESTING IN BED CALL LIGHTS IN REACH WILL MONITOR
[2020-01-23] MEDS ORDERED: METO50 PO (13:12)
[2020-01-23] MEDS ORDERED: ASPI325 PO (14:00)
--- NOTE | 2020-01-23 15:14 | NUR ---
PT DISCHARGED TO HOME TODAY WITH DISCHARGE ORDERS. PT REMAINED AFIB/AFLUTTER RATE STABLE AT 70-80'S. PT NEW PRESCRIPTION FOR ASPIRIN PT NOT A CANDIDATE FOR BLOOD THINNERS DUE TO FALL RISK AND HX OF GI BLEED. CATHETER WAS REMOVED PT WAS ABLE TO VOID PRIOR TO LEAVING. HOME HEALTH ORDERS AND DISCHARGE INSTRUCTIONS DISCLOSED WITH THE PT, PT VERBALIZED UNDERSTANDING. ALL BELONGINGS SENT WITH PT, PT ACCOMPANIED BY PCT VIA WHEELCHAIR FOR TRANSPORT. PT'S FRIEND PROVIDED TRANSPORTATION.
[2020-01-23 16:11] LABS: A/G RATIO 1.1 (0.7-1.7); ALPHA-1-GLOBULIN 0.2 g/dL (0.0-0.4); ALPHA-2-GLOBULIN 0.7 g/dL (0.4-1.0); GLOBULIN, TOTAL 2.9 g/dL (2.2-3.9); IMMUNOGLOBULIN A, QN, SERUM 381 mg/dL (64-422); IMMUNOGLOBULIN G, QN, SERUM 908 mg/dL (586-1602); IMMUNOGLOBULIN M, QN, SERUM 108 mg/dL (26-217); M-SPIKE Not Observed g/dL (Not Observed); PROTEIN, TOTAL, SERUM 5.9 g/dL (6.0-8.5)
[2020-01-24 08:11] LABS: ANTIGLOMERULAR BM AB 3 units (0-20)
[2020-01-24 13:11] LABS: ANA DIRECT Positive (Negative); ANTI-CENTROMERE B ANTIBODIES <0.2 AI (0.0-0.9); ANTI-DNA (DS) AB QN 5 IU/mL (0-9); ANTI-JO-1 <0.2 AI (0.0-0.9); ANTICHROMATIN ANTIBODIES <0.2 AI (0.0-0.9); ANTIMYELOPEROXIDASE (MPO) ABS <9.0 U/mL (0.0-9.0); ANTIPROTEINASE 3 (PR-3) ABS <3.5 U/mL (0.0-3.5); ANTIRIBOSOMAL P ANTIBODIES <0.2 AI (0.0-0.9); ANTISCLERODERMA-70 ANTIBODIES <0.2 AI (0.0-0.9); ATYPICAL PANCA <1:20 titer (Neg:<1:20); CYTOPLASMIC (C-ANCA) <1:20 titer (Neg:<1:20); PERINUCLEAR (P-ANCA) <1:20 titer (Neg:<1:20); RNP ANTIBODIES 7.6 AI (0.0-0.9); SJOGREN'S ANTI-SS-A <0.2 AI (0.0-0.9); SJOGREN'S ANTI-SS-B <0.2 AI (0.0-0.9); SMITH ANTIBODIES <0.2 AI (0.0-0.9); SMITH/RNP ANTIBODIES <0.2 AI (0.0-0.9)
[2020-01-24 13:12] LABS: M-SPIKE, % Not Observed % (Not Observed); PROTEIN,TOTAL,URINE 9.3 mg/dL (Not Estab.)
== END 2020-01-23 15:12 | disposition home health service (06) | DRG 682 ==
LOC: ER 01:46 → ERHOLD 01:47 → ER 05:19 → ERHOLD 05:19 → PCU 14:04
PROVIDERS: Emergency Medicine; Internal Medicine Nephrology; ADMIT Internal Medicine
DX: N17.9 Acute kidney failure, unspecified (principal); J96.21 Acute and chronic respiratory failure with hypoxia; E87.2 Acidosis; G93.49 Other encephalopathy; J44.9 Chronic obstructive pulmonary disease, unspecified; E03.9 Hypothyroidism, unspecified; Z90.11 Acquired absence of right breast and nipple; Z87.891 Personal history of nicotine dependence; E87.5 Hyperkalemia; N25.81 Secondary hyperparathyroidism of renal origin; Z90.10 Acquired absence of unspecified breast and nipple; E88.09 Other disorders of plasma-protein metabolism, not elsewhere classified; N18.30 Chronic kidney disease, stage 3 unspecified; D64.9 Anemia, unspecified; R82.81 Pyuria; E83.39 Other disorders of phosphorus metabolism; V89.2XXA Person injured in unspecified motor-vehicle accident, traffic, initial encounter; Y92.9 Unspecified place or not applicable; I48.0 Paroxysmal atrial fibrillation; Z79.82 Long term (current) use of aspirin; E16.2 Hypoglycemia, unspecified; Z91.81 History of falling; Z23 Encounter for immunization
CPT/HCPCS: 36415; 51702; 70450; 71250; 72125; 73060; 74176; 76770; 80053; 80069; 81001; 82550; 82784; 82947; 83516; 83520; 83735; 84100; 84132; 84165; 84166; 84550; 85014; 85018; 85025; 86038; 86256; 86334; 86335; 87086; 87205; 87493; 93005; 93010; 94640; 94760; 96365-59; 96367-59; 96368; 96375-59; 96376-59; 97110; 97116; 97161; 97166; 97530; 97535; 99285-25; A9270; A9270-GY; J0610; J0696; J0881; J1644; J1815; J7030; J7042; J7060; J7120; J7512; P9612; Q2038

== ENCOUNTER 2020-08-07 17:22 | Inpatient (IN) | payer OTHER ==
[~2020-08-07] VITALS: Ht 154.9 cm; Wt 81.0 kg
[~2020-08-07 17:22] MED LIST changes: +ASPI325 PO; +METO50 PO; +Ventolin/Prove6.7 GM INH; +ZOLOFT100 M3 PO
[2020-08-07 17:59] LABS: BASOPHILS ABSOLUTE AUTO 0.02 K/mm3 (0.00-0.23); BASOPHILS PERCENT AUTO 0 % (0-2); EOSINOPHILS ABSOLUTE AUTO 0.01 K/mm3 (0.00-0.68); EOSINOPHILS PERCENT AUTO 0 % (0-6); Hematocrit 29.1 % (33.0-51.0); Hemoglobin 8.7 g/dL (11.5-16.0); IMMATURE GRAN PERCENT AUTO 1 % (0-1); LYMPHOCYTES ABSOLUTE AUTO 0.32 K/mm3 (0.84-5.20); LYMPHOCYTES PERCENT AUTO 2 % (21-46); MONOCYTES ABSOLUTE AUTO 0.94 K/mm3 (0.16-1.47); MONOCYTES PERCENT AUTO 7 % (4-13); Mean Corpuscular HGB 25.4 pg (26.0-34.0); Mean Corpuscular HGB Conc 29.9 g/dL (31.5-36.5); Mean Corpuscular Volume 85 fL (80-100); Mean Platelet Volume 9.5 fL (9.1-12.4); NEUTROPHILS ABSOLUTE AUTO 11.93 K/mm3 (1.96-9.15); NEUTROPHILS PERCENT AUTO 89 % (41-73); Platelet Count 203 K/mm3 (150-400); RDW Coefficient Variation 14.6 % (11.7-14.2); RDW Standard Deviation 45.3 fL (35.1-46.3); Red Blood Cell Count 3.43 M/mm3 (3.80-5.20); White Blood Cell Count 13.32 K/mm3 (4.00-11.30)
[2020-08-07 18:20] LABS: Alanine Aminotransfer (ALT/SGP 17 U/L (12-78); Albumin, Blood 3.2 g/dL (3.4-5.0); Albumin/Globulin Ratio 0.7 (0.8-1.8); Alk Phos 97 U/L (50-136); Anion Gap 7 mmol/L (6-16); Aspartate Aminotrans (AST/SGOT 17 U/L (12-37); Bilirubin, Total 0.4 mg/dL (0.1-1.0); Blood Urea Nitrogen 33 mg/dL (8-24); Bun/Creatinine Ratio 24.1 (12.0-20.0); CO2, Blood 24 mmol/L (21-32); Calcium, Blood 9.1 mg/dL (8.5-10.1); Chloride, Blood 105 mmol/L (98-108); Creatinine, Blood 1.37 mg/dL (0.40-1.00); Globulin, Blood 4.5 g/dL (2.2-4.0); Glomerular Filtration Rate 40 (60-); Glucose, Blood 140 mg/dL (70-99); Potassium, Blood 4.5 mmol/L (3.5-5.5); Sodium, Blood 136 mmol/L (136-145); Total Protein, Blood 7.7 g/dL (6.4-8.2); Troponin I <0.015 ng/mL (0.000-0.040)
[2020-08-07 23:29] LABS: CPK Creatine Kinase 53 U/L (26-193)
[2020-08-08 04:33] LABS: BASOPHILS ABSOLUTE AUTO 0.01 K/mm3 (0.00-0.23); BASOPHILS PERCENT AUTO 0 % (0-2); EOSINOPHILS ABSOLUTE AUTO 0.01 K/mm3 (0.00-0.68); EOSINOPHILS PERCENT AUTO 0 % (0-6); Hematocrit 26.5 % (33.0-51.0); IMMATURE GRAN ABSOLUTE AUTO 0.05 K/mm3 (0.00-0.10); IMMATURE GRAN PERCENT AUTO 1 % (0-1); LYMPHOCYTES ABSOLUTE AUTO 0.56 K/mm3 (0.84-5.20); LYMPHOCYTES PERCENT AUTO 5 % (21-46); MONOCYTES ABSOLUTE AUTO 0.91 K/mm3 (0.16-1.47); MONOCYTES PERCENT AUTO 9 % (4-13); Mean Corpuscular HGB 25.3 pg (26.0-34.0); Mean Corpuscular HGB Conc 30.2 g/dL (31.5-36.5); Mean Corpuscular Volume 84 fL (80-100); Mean Platelet Volume 9.9 fL (9.1-12.4); NEUTROPHILS ABSOLUTE AUTO 8.76 K/mm3 (1.96-9.15); NEUTROPHILS PERCENT AUTO 85 % (41-73); Platelet Count 196 K/mm3 (150-400); RDW Coefficient Variation 14.6 % (11.7-14.2); RDW Standard Deviation 45.1 fL (35.1-46.3); Red Blood Cell Count 3.16 M/mm3 (3.80-5.20)
[2020-08-08 05:31] LABS: Bun/Creatinine Ratio 22.5 (12.0-20.0); Calcium, Blood 8.6 mg/dL (8.5-10.1); Creatinine, Blood 1.02 mg/dL (0.40-1.00); Percent Saturation 2.3 % (15.0-50.0); Potassium, Blood 4.2 mmol/L (3.5-5.5)
--- NOTE | 2020-08-08 16:30 | NUR ---
ADMIT:08/07/20 DISCHARGE: DX: Left lower lobe pneumonia CC: [email or web address] ADMIT:01/20/20 DISCHARGE: 01/23/20 ADMIT 02/22/18 DISCHARGE: 03/02/18 READMITT 01/02/18 DISCHARGE: 01/04/18 ADMIT: 12/13/17 DISCHARGE: 12/19/17 SEAN CALL: RESIDENCE: home CAREGIVER: Cheyenne Dumont, Family Member, DX: Arteriosclerotic vascular disease, chronic pain, GERD, hyperkalemia, see list DME: O2 and equipment, Bipap CCM: referral 2018 HOME HEALTH:[facility]- 2018 SUMMARY: 08/08/20- per chart review with Dr. Millard, pt will be staying with potential discharge on Tuesday to her sister's home that has AC. Met with the pt and she reports that prior to coming into the hospital, she was independent and had no home health or caregivers. She lives alone but her sister lives on the corner. She lives in a single story home with 1 step to get up the front door. She has all working utilities but no AC. Her sister's home has AC. Pt does not drive and her sister takes her to all her appts and picks up her prescriptions from [facility]. Pt does not have POA and her daughter and son are her next of kin. Pt would like to have a shower chair because she is currently using her kitchen chair in the shower. Pt does not need any assistance with food or housekeeping. Will order shower chair to be delivered to her home. -sophia
--- NOTE | 2020-08-08 16:40 | NUR ---
SHIFT SUMMARY PATIENT MEDICATED X1 FOR PAIN, DENIES NAUSEA, AND SHORTNESS OF BREATH. UP SBA TO BR. WORKED WITH PT AND OT. WRISTS SWOLLEN AND PAINFUL TO TOUCH. SWELLING BETTER THIS AFTERNOON THAN THIS MORING. EATING AND DRINKING WELL. PLEASANT AND COOPERATIVE WITH CARE.
[2020-08-09 05:08] LABS: BASOPHILS ABSOLUTE AUTO 0.01 K/mm3 (0.00-0.23); BASOPHILS PERCENT AUTO 0 % (0-2); EOSINOPHILS ABSOLUTE AUTO 0.02 K/mm3 (0.00-0.68); EOSINOPHILS PERCENT AUTO 0 % (0-6); Hematocrit 26.9 % (33.0-51.0); Hemoglobin 7.9 g/dL (11.5-16.0); IMMATURE GRAN ABSOLUTE AUTO 0.07 K/mm3 (0.00-0.10); IMMATURE GRAN PERCENT AUTO 1 % (0-1); LYMPHOCYTES ABSOLUTE AUTO 0.62 K/mm3 (0.84-5.20); LYMPHOCYTES PERCENT AUTO 8 % (21-46); MONOCYTES ABSOLUTE AUTO 0.86 K/mm3 (0.16-1.47); MONOCYTES PERCENT AUTO 11 % (4-13); Mean Corpuscular HGB 24.8 pg (26.0-34.0); Mean Corpuscular HGB Conc 29.4 g/dL (31.5-36.5); Mean Corpuscular Volume 84 fL (80-100); Mean Platelet Volume 10.5 fL (9.1-12.4); NEUTROPHILS ABSOLUTE AUTO 6.52 K/mm3 (1.96-9.15); NEUTROPHILS PERCENT AUTO 81 % (41-73); Platelet Count 203 K/mm3 (150-400); RDW Coefficient Variation 14.7 % (11.7-14.2); RDW Standard Deviation 45.1 fL (35.1-46.3); Red Blood Cell Count 3.19 M/mm3 (3.80-5.20)
--- NOTE | 2020-08-09 05:24 | NUR ---
CAREGIVER SERVICES HOME SUMMARY PT A/O X4 WITH FORGETFULNESS. DENIES PAIN, NAUSEA. PT IS ON 2L O2 VIA NC SATTING IN [facility] EMID 90'S. PT USES 2L 02 AT BASELINE. SOB WITH ACTIVITY. LUNGS SOUND CLEAR. SLEPT WELL TONIGHT. AMBULATES WITH SBA TO THE BATHROOM. VSS, NO ACUTE CHANGES. BED ALARM ON, CALL LIGHT WITHIN REACH, WILL CONTINUE TO MONITOR.
[2020-08-09 05:36] LABS: Bun/Creatinine Ratio 19.4 (12.0-20.0); Calcium, Blood 9.2 mg/dL (8.5-10.1); Creatinine, Blood 1.08 mg/dL (0.40-1.00)
[2020-08-09] MEDS ORDERED: AMOCLA875 PO (12:35)
[2020-08-09] MEDS ORDERED: AZIT250 PO (12:36)
== END 2020-08-09 14:45 | disposition home or self-care (01) | DRG 193 ==
LOC: ER 17:22 → MEDS 23:05
PROVIDERS: Emergency Medicine; Family Medicine; ADMIT Internal Medicine
DX: J18.9 Pneumonia, unspecified organism (principal); J96.21 Acute and chronic respiratory failure with hypoxia; J96.22 Acute and chronic respiratory failure with hypercapnia; N17.9 Acute kidney failure, unspecified; J44.0 Chronic obstructive pulmonary disease with (acute) lower respiratory infection; J44.1 Chronic obstructive pulmonary disease with (acute) exacerbation; T67.5XXA Heat exhaustion, unspecified, initial encounter; F41.8 Other specified anxiety disorders; E03.9 Hypothyroidism, unspecified; M06.9 Rheumatoid arthritis, unspecified; Z99.81 Dependence on supplemental oxygen; Z88.8 Allergy status to other drugs, medicaments and biological substances; G89.29 Other chronic pain; Z90.11 Acquired absence of right breast and nipple; N18.30 Chronic kidney disease, stage 3 unspecified; I12.9 Hypertensive chronic kidney disease with stage 1 through stage 4 chronic kidney disease, or unspecified chronic kidney disease; Z91.048 Other nonmedicinal substance allergy status; E66.9 Obesity, unspecified; D64.9 Anemia, unspecified
CPT/HCPCS: 36415; 71046; 80048; 80053; 82550; 82607; 82728; 82746; 83540; 83550; 84484; 85025; 93005; 93010; 94640; 94760; 96365; 97110; 97116; 97162; 97166; 97530; 99285-25; A9270; J0696; J1650; J2930; J7030; J7512

== ENCOUNTER 2020-09-26 20:19 | Emergency (ER) | payer OTHER ==
[~2020-09-26] VITALS: Ht 154.9 cm; Wt 78.9 kg
[~2020-09-26 20:19] MED LIST changes: +AMOCLA875 PO
[2020-09-26 21:05] LABS: BASOPHILS ABSOLUTE AUTO 0.02 K/mm3 (0.00-0.23); BASOPHILS PERCENT AUTO 0 % (0-2); EOSINOPHILS ABSOLUTE AUTO 0.31 K/mm3 (0.00-0.68); EOSINOPHILS PERCENT AUTO 5 % (0-6); Hematocrit 33.9 % (33.0-51.0); Hemoglobin 10.1 g/dL (11.5-16.0); IMMATURE GRAN ABSOLUTE AUTO 0.07 K/mm3 (0.00-0.10); IMMATURE GRAN PERCENT AUTO 1 % (0-1); LYMPHOCYTES ABSOLUTE AUTO 0.86 K/mm3 (0.84-5.20); LYMPHOCYTES PERCENT AUTO 13 % (21-46); MONOCYTES ABSOLUTE AUTO 0.76 K/mm3 (0.16-1.47); MONOCYTES PERCENT AUTO 11 % (4-13); Mean Corpuscular HGB Conc 29.8 g/dL (31.5-36.5); Mean Corpuscular Volume 84 fL (80-100); Mean Platelet Volume 9.8 fL (9.1-12.4); NEUTROPHILS ABSOLUTE AUTO 4.69 K/mm3 (1.96-9.15); NEUTROPHILS PERCENT AUTO 70 % (41-73); Platelet Count 305 K/mm3 (150-400); RDW Coefficient Variation 16.9 % (11.7-14.2); RDW Standard Deviation 52.8 fL (35.1-46.3); Red Blood Cell Count 4.04 M/mm3 (3.80-5.20); White Blood Cell Count 6.71 K/mm3 (4.00-11.30)
[2020-09-26 21:24] LABS: Albumin, Blood 3.8 g/dL (3.4-5.0); Bilirubin, Total 0.3 mg/dL (0.1-1.0); Bun/Creatinine Ratio 20.5 (12.0-20.0); Calcium, Blood 9.4 mg/dL (8.5-10.1); Creatinine, Blood 1.51 mg/dL (0.40-1.00); Potassium, Blood 4.7 mmol/L (3.5-5.5); Total Protein, Blood 7.8 g/dL (6.4-8.2)
[2020-09-26] MEDS ORDERED: Cleocin HCl150 MG PO (23:09)
== END 2020-09-27 00:43 | disposition home or self-care (01) ==
LOC: ER 20:19
PROVIDERS: Emergency Medicine
DX: L03.115 Cellulitis of right lower limb (principal); Z87.891 Personal history of nicotine dependence; Z79.82 Long term (current) use of aspirin; Z88.6 Allergy status to analgesic agent; Z88.8 Allergy status to other drugs, medicaments and biological substances; Z91.048 Other nonmedicinal substance allergy status
CPT/HCPCS: 36415; 80053; 85025; 96365; 99283-25; J7030

== ENCOUNTER → 2021-06-03 | Outpatient (CLI) | payer OTHER ==
[~2021-06-03] MED LIST changes: +Cleocin HCl150 MG PO
== END | disposition home or self-care (01) ==
LOC: LAB 15:15 → LAB SHORT 15:15
DX: N39.0 Urinary tract infection, site not specified (principal)
CPT/HCPCS: 87077; 87086; 87186

== ENCOUNTER 2021-11-13 15:08 | Inpatient (IN) | payer OTHER ==
[~2021-11-13] VITALS: Ht 157.5 cm; Wt 73.0 kg
[2021-11-13 15:33] LABS: Source, Urine Clean Catch
[2021-11-13 15:57] LABS: Appearance, Urine Clear (Clear); Bilirubin, Urine Neg (Neg); Blood, Urine 3+ (Neg); Color, Urine Yellow (P-Yellow); Glucose Qualitative, Urine Neg (Neg); Ketones, Urine Neg (Neg); Leukocyte Esterase, Urine Neg (Neg); Nitrite, Urine Neg (Neg); Protein, Urine 1+ (Neg); Urobilinogen, Urine NORM (Normal)
[2021-11-13 16:05] LABS: Albumin, Blood 3.1 g/dL (3.4-5.0); Albumin/Globulin Ratio 0.9 (0.8-1.8); Bilirubin, Total 0.6 mg/dL (0.1-1.0); Bun/Creatinine Ratio 16.1 (12.0-20.0); Creatinine, Blood 2.92 mg/dL (0.40-1.00); Globulin, Blood 3.6 g/dL (2.2-4.0); Potassium, Blood 4.2 mmol/L (3.5-5.5); Total Protein, Blood 6.7 g/dL (6.4-8.2)
[2021-11-13 16:22] LABS: Bacteria Few /hpf; Squamous Epithelial Cells Few /hpf (Few); White Blood Cells, Urine 0-2 /hpf (0-5)
[2021-11-13 16:54] LABS: Hematocrit 33.7 % (33.0-51.0); Hemoglobin 10.2 g/dL (11.5-16.0); Mean Corpuscular HGB Conc 30.3 g/dL (31.5-36.5); Mean Corpuscular Volume 86 fL (80-100); Mean Platelet Volume 10.5 fL (9.1-12.4); Platelet Count 241 K/mm3 (150-400); RDW Coefficient Variation 15.4 % (11.7-14.2); RDW Standard Deviation 48.5 fL (35.1-46.3); Red Blood Cell Count 3.92 M/mm3 (3.80-5.20); White Blood Cell Count 23.09 K/mm3 (4.00-11.30)
[2021-11-13 17:12] LABS: BAND PERCENT MAN 17 % (0-8); BASOPHILS ABSOLUTE MAN 0.23 K/mm3 (0.00-0.23); BASOPHILS PERCENT MAN 1 % (0-2); EOSINOPHILS PERCENT MAN 0 % (0-6); LYMPHOCYTES ABSOLUTE MAN 0.46 K/mm3 (0.84-5.20); LYMPHOCYTES PERCENT MAN 2 % (21-46); METAMYELOCYTE ABSOLUTE MAN 0.46 K/mm3 (0.00-0.00); METAMYELOCYTE PERCENT MAN 2 % (0-0); MONOCYTES ABSOLUTE MAN 0.69 K/mm3 (0.16-1.47); MONOCYTES PERCENT MAN 3 % (4-13); NEUTROPHILS ABSOLUTE MAN 21.24 K/mm3 (1.96-9.15); SEG NEUTROPHILS PERCENT MAN 75 % (41-73); TOTAL CELLS COUNTED 100
[2021-11-13 21:31] LABS: Hematocrit 29.2 % (33.0-51.0); Hemoglobin 9.1 g/dL (11.5-16.0); Mean Corpuscular HGB 26.5 pg (26.0-34.0); Mean Corpuscular HGB Conc 31.2 g/dL (31.5-36.5); Mean Corpuscular Volume 85 fL (80-100); Mean Platelet Volume 10.6 fL (9.1-12.4); Platelet Count 225 K/mm3 (150-400); RDW Coefficient Variation 15.1 % (11.7-14.2); RDW Standard Deviation 47.4 fL (35.1-46.3); Red Blood Cell Count 3.44 M/mm3 (3.80-5.20); White Blood Cell Count 12.06 K/mm3 (4.00-11.30)
[2021-11-13 21:55] LABS: Calcium, Blood 6.7 mg/dL (8.5-10.1); Creatinine, Blood 2.73 mg/dL (0.40-1.00); Potassium, Blood 4.7 mmol/L (3.5-5.5)
--- NOTE | 2021-11-14 | NUR ---
PT ADMITTED TO ROOM ICU 8 FROM ED. SLIDE TRANSFERRED TO BED. INTUBATED. BLOOD PRESSURES LOW. LEVOPHED ON AT 20 MCG'S/MIN. PROPOFOL AT 20 MCG'S/KG/MIN. PT AWAKE AT THIS TIME CALMS WITH REASSURANCE. WILL REVIEW CHART AND PLAN OF CARE FOR THIS PT.
[2021-11-14 00:13] LABS: PCO2 Arterial 28.7 mmHg (35-45); PO2 Arterial 153 mmHg (80-100)
--- NOTE | 2021-11-14 03:00 | NUR ---
PT HAS INCREASE IN LACTIC ACID. CALL MADE TO DR BRITO. ORDER FOR BOLUS RECEIVED. PT HAS TEMP OF 101.3. TYLENOL GIVEN PER RECTUM. MINIMAL URINE OUTPUT NOTED. PT HAS OGT TO LOW INTERMITTANT SUCTION. RETURN OF BROWN/GREEN LIQUID SMALL AMOUNT. PT DOES NOD HER HEAD 'YES' TO IF HER ABDOMINAL PAIN IS IMPROVED. WILL CONTINUE TO MONITOR PT.
[2021-11-14 05:43] LABS: pH Blood Arterial 7.23 (7.35-7.45)
[2021-11-14 06:00] LABS: Hematocrit 32.2 % (33.0-51.0); Hemoglobin 9.8 g/dL (11.5-16.0); Mean Corpuscular HGB 26.1 pg (26.0-34.0); Mean Corpuscular HGB Conc 30.4 g/dL (31.5-36.5); Mean Corpuscular Volume 86 fL (80-100); Platelet Count 207 K/mm3 (150-400); RDW Coefficient Variation 15.4 % (11.7-14.2); RDW Standard Deviation 48.2 fL (35.1-46.3); Red Blood Cell Count 3.75 M/mm3 (3.80-5.20); White Blood Cell Count 11.83 K/mm3 (4.00-11.30)
[2021-11-14 06:22] LABS: BAND PERCENT MAN 25 % (0-8); BASOPHILS PERCENT MAN 0 % (0-2); EOSINOPHILS PERCENT MAN 0 % (0-6); LYMPHOCYTES ABSOLUTE MAN 0.11 K/mm3 (0.84-5.20); LYMPHOCYTES PERCENT MAN 1 % (21-46); METAMYELOCYTE ABSOLUTE MAN 0.11 K/mm3 (0.00-0.00); METAMYELOCYTE PERCENT MAN 1 % (0-0); MONOCYTES PERCENT MAN 0 % (4-13); NEUTROPHILS ABSOLUTE MAN 11.59 K/mm3 (1.96-9.15); SEG NEUTROPHILS PERCENT MAN 73 % (41-73); TOTAL CELLS COUNTED 100
[2021-11-14 06:34] LABS: Magnesium, Blood 1.6 mg/dL (1.6-2.4)
[2021-11-14 06:36] LABS: Albumin, Blood 2.4 g/dL (3.4-5.0); Albumin/Globulin Ratio 0.8 (0.8-1.8); Bun/Creatinine Ratio 18.6 (12.0-20.0); Calcium, Blood 6.8 mg/dL (8.5-10.1); Creatinine, Blood 3.11 mg/dL (0.40-1.00); Globulin, Blood 3.2 g/dL (2.2-4.0); Potassium, Blood 5.4 mmol/L (3.5-5.5); Total Protein, Blood 5.6 g/dL (6.4-8.2)
--- NOTE | 2021-11-14 06:45 | NUR ---
HAVE BEEN ABLE TO TITRATE DOWN LEVOPHED TO 15 MCCG'S. TEMPERATURE RESPONDS WELL TO TYLENOL. MINIMAL RETURN FROM ETT SUCTION. WILL CONTINUE TO MONITOR PT, AND WILL REPORT OFF TO ONCOMING RN.
--- NOTE | 2021-11-14 07:13 | NUR ---
ASSUMED CARE OF PT AT 0700 PT VENTED AND SEDATED. B/P 109/55, MAP 72, HR 70'S. TKO AT 20 MLS/HR, NS AT 100 MLS HR, PROP AT 30 MCH/KG/MIN, LEVO AT 0.04. VENT SETTINGS 16/400/8/70%. JAIMES CATH PATENT AND DRAINING TO GRAVITY. BUE RESTRAINTS ON AT THIS TIME WITH NO APPARENT ISSUES, SKIN AND CIRCULATION CHECKED. CHG WIPE DOWN NOT DONE ON JUICE TESTER, PLAN TO DO DURING DAYSHIFT THIS AM. SEE ASSESSMENT FOR MORE INFORMATION.
[2021-11-14 08:44] LABS: PCO2 Arterial 29.3 mmHg (35-45); PO2 Arterial 132 mmHg (80-100)
[2021-11-14 08:45] LABS: pH Blood Arterial 7.24 (7.35-7.45)
[2021-11-14 11:23] LABS: Vancomycin, Random 16.2 ug/mL
--- NOTE | 2021-11-14 14:56 | NUR ---
DR RUSH IN ROOM TO INSERT DIALYSYS CATHETER.
[2021-11-14 18:25] LABS: Albumin, Blood 2.2 g/dL (3.4-5.0); Albumin/Globulin Ratio 0.7 (0.8-1.8); Bilirubin, Total 0.7 mg/dL (0.1-1.0); Bun/Creatinine Ratio 19.5 (12.0-20.0); Calcium, Blood 7.1 mg/dL (8.5-10.1); Creatinine, Blood 3.48 mg/dL (0.40-1.00); Globulin, Blood 3.1 g/dL (2.2-4.0); Potassium, Blood 4.7 mmol/L (3.5-5.5); Total Protein, Blood 5.3 g/dL (6.4-8.2)
--- NOTE | 2021-11-14 18:35 | NUR ---
END OF SHIFT SUMMARY PT INTUBATED AND SEDATED. PT HAS NOT OPENED EYES OR SQUEEZED HAND ON COMMAND. PROP AT 20 MCG/KG/MIN, D5W WITH BICARB RUNNING AT 75 MLS/HR. JAIMES CATH PATENT AND DRAINING TO GRAVITY. SMALL URINE OUTPUT. DR BRITO ORDERED DIALYSIS AND INSERTED DIALYSIS CATHETHER. PT BECAME HYPOTENSIVE WITH DIALYSIS, VASSOPRESSIN RESTARTED AT 0.04. HR NOW AT 92, B/P SYSTOLIC IN 90'S CURRENTLY. PT IS STILL IN DIALYSIS TREATMENT AT THIS TIME. NO PRESSURE SORES ON COCCYX OR OTHER AREAS. BRUISING IN VARIOUS HEALING STAGES THROUGHOUT BLE. LUNG SOUNDS CLEAR BILATERALLY DIMINISHED AT BASES. WILL CONTINUE TO MONITOR UNTIL SHIFT REPORT GIVEN TO CARDIOVASCULAR DISEASE SPECIALIST.
[2021-11-15 03:41] LABS: Hematocrit 26.6 % (33.0-51.0); Hemoglobin 8.7 g/dL (11.5-16.0); Mean Corpuscular HGB Conc 32.7 g/dL (31.5-36.5); Mean Platelet Volume 10.4 fL (9.1-12.4); Platelet Count 144 K/mm3 (150-400); RDW Coefficient Variation 15.1 % (11.7-14.2); Red Blood Cell Count 3.34 M/mm3 (3.80-5.20); White Blood Cell Count 6.98 K/mm3 (4.00-11.30)
[2021-11-15 03:44] LABS: PCO2 Venous 41.1 mmHg (38-42); pH Blood Venous 7.48 (7.34-7.37)
[2021-11-15 03:54] LABS: Mean Corpuscular Volume 80 fL (80-100)
[2021-11-15 04:18] LABS: Magnesium, Blood 1.4 mg/dL (1.6-2.4); Phosphorus, Blood 3.6 mg/dL (2.5-4.9)
[2021-11-15 04:43] LABS: BAND PERCENT MAN 30 % (0-8); BASOPHILS PERCENT MAN 0 % (0-2); EOSINOPHILS PERCENT MAN 0 % (0-6); LYMPHOCYTES ABSOLUTE MAN 0.06 K/mm3 (0.84-5.20); LYMPHOCYTES PERCENT MAN 1 % (21-46); METAMYELOCYTE ABSOLUTE MAN 0.06 K/mm3 (0.00-0.00); METAMYELOCYTE PERCENT MAN 1 % (0-0); MONOCYTES ABSOLUTE MAN 0.34 K/mm3 (0.16-1.47); MONOCYTES PERCENT MAN 5 % (4-13); NEUTROPHILS ABSOLUTE MAN 6.49 K/mm3 (1.96-9.15); SEG NEUTROPHILS PERCENT MAN 63 % (41-73); TOTAL CELLS COUNTED 100
[2021-11-15 05:04] LABS: Albumin, Blood 2.2 g/dL (3.4-5.0); Anion Gap 12 mmol/L (6-16); Blood Urea Nitrogen 40 mg/dL (8-24); Bun/Creatinine Ratio 18.4 (12.0-20.0); CO2, Blood 27 mmol/L (21-32); Calcium, Blood 7.4 mg/dL (8.5-10.1); Chloride, Blood 96 mmol/L (98-108); Creatinine, Blood 2.17 mg/dL (0.40-1.00); Glomerular Filtration Rate 23 (60-); Glucose, Blood 112 mg/dL (70-99); Potassium, Blood 3.8 mmol/L (3.5-5.5); Sodium, Blood 135 mmol/L (136-145)
--- NOTE | 2021-11-15 06:12 | NUR ---
END OF SHIFT SUMMARY NO ACUTE OVER NIGHT EVENTS. PT FINISHED HD WAS ABLE TO PULL 500ML OFF. AFTER COMPLEATING HD I WAS ABLE TO TITRATE DOWN ON VASO AND LEVO CURRENTLY VASO IS OFF AND LEVO IS DOWN TO 5 FROM 12. I HAVE ALSO TIRATED PROP DOWN FROM 20 TO 15 PT ISNT FOLLOWING COMMANDS BUT SHE IS POLO AND IS WAKING UP BUT STILL NOT FOLLOWING COMMANDS.WILL CONTINUE TO MONITOR AND REPORT OFF TO ONCOMING RN
--- NOTE | 2021-11-15 08:00 | NUR ---
ASSUMED CARE OF PT THIS AM. PT. REMAINS INTUBATED, SEDATION TITRATED DOWN TO 15MCG/KG/MIN. PT. GRIMACES WITH ORAL CARE AND REPOSITIONING. PT. NG CONTINUES TO LIS WITH DARK GREEN FLUID NOTED. PT. REMAINS ON LEVOPHED AT THIS TIME, ST ON MONITOR SEE FLOWSHEET. PT. ABD TENDER TO PALPATION, FIRM. PT. POLO, NOT FOLLOWING COMMANDS AT THIS TIME. BILAT WRIST RESTRAINTS IN PLACE FOR SAFETY. KIERAN AT BEDSIDE, UPDATED ON PT CONDITION.
--- NOTE | 2021-11-15 12:21 | NUR ---
UPDATE PT. REPOSITIONED, DIALYSIS NURSE TO BEDSIDE TO BEGIN SETTING UP. PT. FAMILY UPDATED. PT RR INCREASED TO MID 30S, GRIMACING NOTED, FENTANYL GIVEN PER EMAR FOR PAIN. PT TEMP INCREASED TO 101.0, FAN PLACED AT BEDSIDE. TYLENOL SUPP. GIVEN. VERY POOR RECTAL TONE. NO ACUTE CHANGES AT THIS TIME.
[2021-11-15 16:33] LABS: Vancomycin, Random 8.3 ug/mL
--- NOTE | 2021-11-15 17:53 | NUR ---
SHIFT SUMMARY PT. REMAINS SEDATED AND INTUBATED T/O SHIFT. PT OPENES EYES TO STIMULI BUT DOES NOT TRACK OR FOLLOW COMMANDS. NO ACUTE CHANGES T/O SHIFT. LEVOPHED REQUIRED TITRATING UP DURING DIALYSIS HOWEVER ABLE TO SLOWLY TITRATE BACK DOWN. REMAINS OFF OF VASOPRESSIN. PT FEVER BROKE TODAY AFTER TYLENOL ADMIN. NG TUBE REMAINS TO LIS. ALL NEEDS MET AT THIS TIME. REPORT TO ONCOMING RN.
[2021-11-16 03:46] LABS: Hematocrit 28.5 % (33.0-51.0); Hemoglobin 9.1 g/dL (11.5-16.0); Mean Corpuscular HGB 25.5 pg (26.0-34.0); Mean Corpuscular HGB Conc 31.9 g/dL (31.5-36.5); Mean Corpuscular Volume 80 fL (80-100); Mean Platelet Volume 11.2 fL (9.1-12.4); Platelet Count 117 K/mm3 (150-400); RDW Coefficient Variation 15.2 % (11.7-14.2); RDW Standard Deviation 44.2 fL (35.1-46.3); Red Blood Cell Count 3.57 M/mm3 (3.80-5.20); White Blood Cell Count 7.43 K/mm3 (4.00-11.30)
[2021-11-16 04:29] LABS: Albumin, Blood 1.9 g/dL (3.4-5.0); Albumin/Globulin Ratio 0.6 (0.8-1.8); Bun/Creatinine Ratio 16.1 (12.0-20.0); Calcium, Blood 7.4 mg/dL (8.5-10.1); Creatinine, Blood 2.05 mg/dL (0.40-1.00); Globulin, Blood 3.3 g/dL (2.2-4.0); Potassium, Blood 3.6 mmol/L (3.5-5.5); Total Protein, Blood 5.2 g/dL (6.4-8.2)
[2021-11-16 04:34] LABS: BAND PERCENT MAN 17 % (0-8); BASOPHILS PERCENT MAN 0 % (0-2); EOSINOPHILS PERCENT MAN 0 % (0-6); LYMPHOCYTES ABSOLUTE MAN 0.07 K/mm3 (0.84-5.20); LYMPHOCYTES PERCENT MAN 1 % (21-46); METAMYELOCYTE ABSOLUTE MAN 0.07 K/mm3 (0.00-0.00); METAMYELOCYTE PERCENT MAN 1 % (0-0); MONOCYTES ABSOLUTE MAN 0.37 K/mm3 (0.16-1.47); MONOCYTES PERCENT MAN 5 % (4-13); MYELOCYTE ABSOLUTE MAN 0.07 K/mm3 (0.00-0.00); MYELOCYTE PERCENT MAN 1 % (0-0); NEUTROPHILS ABSOLUTE MAN 6.83 K/mm3 (1.96-9.15); SEG NEUTROPHILS PERCENT MAN 75 % (41-73); TOTAL CELLS COUNTED 100
--- NOTE | 2021-11-16 05:30 | NUR ---
END OF SHIFT SUMMARY NO ACUTE EVENTS OVERNIGHT PT HAD HD TODAY AND PRESSOR NEED WENT UP BUT I HAVE SUCCESSFULLY TIRATED TATIANAEO DOWN TO 3 PT IS WAKING AND WAS ABLE TO NOD TO QUESTIONS STILL HAS TROUBLE FOCUSSING FOR LONG. PT REMAINS VENTED AC/VC WAS ABLE TO SUCTION MOD OF SECREATIONS START OF SHIFT BUT MININMAL SECREATIONS FROM ETT IT WS JARVIS THICK. SHE HAS SMALL ABOUT OF ORAL WHITE SECRETIONS. PT HAD MINUMAL URIN OUT PUT. PT RENAL FUNCTION HAS IMPROVED AND DAILY EVAL IS PLANNED FOR HD.WILL CONTINUE TO MONITOR AND REPORT OFF TO ONCOMING IMAN
--- NOTE | 2021-11-16 07:36 | NUR ---
ASSUMED CARE PT INTUBATED W/ VENT SETTINGS AT 16/400/10/50%; SPO2 >92%. MAP >65 W/ LEVOPHED AT 3MCG. PROPOFOL @ 15MCG. PT OPENS EYES TO VERBAL STIMULI, NO TRACKING, AND CURRENTLY DOES NOT FOLLOW ANY COMMANDS.
[2021-11-16 16:12] LABS: Vancomycin, Random 10.5 ug/mL
--- NOTE | 2021-11-16 17:56 | NUR ---
SHIFT SUMMARY PT IS INTUBATED AND SEDATED ON 15 MCG OF PROPOFOL. VENT AT 16/400/10/40% SPO2 >92%. LEVOPHED @ 3MCG; MAP >65. PT IS ALERT AND FOLLOWS COMMANDS. NODS/SHAKES HEAD APPROPRIATELY TO QUESTIONS. PAIN HAS BEEN MANAGED W/ 25MCG OF FENTANYL. ABDOMINAL/BACK PAIN. TUBE FEEDING TO BE INITIATED PER ORDER.
--- NOTE | 2021-11-16 20:55 | NUR ---
ASSUMED CARE. ALERT, ABLE TO ANSWER YES AND NO QUESTIONS, REPAIRER PUMP WEAK, WIGGLES TOES, GOOD COUGH, GAG, AND SWALLOW. PUPILS SLUGGISH TO LIGHT. SEDATED ON PROPOFOL 15MCQ/HR. ANSWERED YES TO PAIN, 25MCQ OF FENT GIVEN. LS DIM IN BASES, AC/VC VENT SETTINGS 16/400/10/40%. ETT 7.5/23 AT GUMS. SUCTION THICK WHITE SECRETIONS, CLEAR FROM ORAL GAVITY. LEVO AT 3MCQ TITRATED TO KEEP MAP >60. ABD MILD DISTENTION, BT HYPOACTIVE, TF JEVITY 1.5 @ 25ML/HR H2O FLUSHES Q4 30ML. RESIDUAL 50CC DARK GREEN BILE AND FORMULA MIXED. SMALL AMOUNT OF CLEAR JELLO MUCUS FROM ANUS NOTED. JAIMES PATENT WITH DARK URINE. REPOSITIONED, CATH CARE COMPLETED.
--- NOTE | 2021-11-16 21:37 | NUR ---
PT JUST HAD A RUN OF TACHYCRDIA IN THE 160'S. PT RESTING COMFORTABLE. SINUS ARRYTHMIA ON THE MONITOR WITH FREQUENT SVBP'S. STRIP SAVED TO CHART, SHE IS NOW BACK IN THE 80'S STILL IRRGULAR RYTHEM.
--- NOTE | 2021-11-17 03:03 | NUR ---
SISTER OLEG CALLED, UPDATE WAS GIVEN.
[2021-11-17 05:52] LABS: BASOPHILS ABSOLUTE AUTO 0.09 K/mm3 (0.00-0.23); BASOPHILS PERCENT AUTO 1 % (0-2); Hematocrit 30.9 % (33.0-51.0); Hemoglobin 9.5 g/dL (11.5-16.0); LYMPHOCYTES ABSOLUTE AUTO 0.19 K/mm3 (0.84-5.20); LYMPHOCYTES PERCENT AUTO 2 % (21-46); MONOCYTES ABSOLUTE AUTO 0.62 K/mm3 (0.16-1.47); MONOCYTES PERCENT AUTO 7 % (4-13); Mean Corpuscular HGB 25.1 pg (26.0-34.0); Mean Corpuscular HGB Conc 30.7 g/dL (31.5-36.5); Mean Corpuscular Volume 82 fL (80-100); Mean Platelet Volume 12.9 fL (9.1-12.4); Platelet Count 124 K/mm3 (150-400); RDW Coefficient Variation 15.4 % (11.7-14.2); RDW Standard Deviation 45.6 fL (35.1-46.3); Red Blood Cell Count 3.79 M/mm3 (3.80-5.20); White Blood Cell Count 9.57 K/mm3 (4.00-11.30)
[2021-11-17 05:55] LABS: EOSINOPHILS ABSOLUTE AUTO 0.02 K/mm3 (0.00-0.68); EOSINOPHILS PERCENT AUTO 0 % (0-6); IMMATURE GRAN ABSOLUTE AUTO 0.21 K/mm3 (0.00-0.10); IMMATURE GRAN PERCENT AUTO 2 % (0-1); NEUTROPHILS ABSOLUTE AUTO 8.44 K/mm3 (1.96-9.15); NEUTROPHILS PERCENT AUTO 88 % (41-73)
[2021-11-17 06:19] LABS: Albumin, Blood 1.9 g/dL (3.4-5.0); Albumin/Globulin Ratio 0.6 (0.8-1.8); Bilirubin, Direct 0.5 mg/dL (0.0-0.3); Bilirubin, Indirect 0.5 mg/dL (0.1-0.7); Bun/Creatinine Ratio 20.9 (12.0-20.0); Calcium, Blood 7.8 mg/dL (8.5-10.1); Creatinine, Blood 2.58 mg/dL (0.40-1.00); Globulin, Blood 3.4 g/dL (2.2-4.0); Magnesium, Blood 2.8 mg/dL (1.6-2.4); Phosphorus, Blood 3.6 mg/dL (2.5-4.9); Potassium, Blood 3.7 mmol/L (3.5-5.5); Total Protein, Blood 5.3 g/dL (6.4-8.2)
--- NOTE | 2021-11-17 07:27 | NUR ---
SHIFT SUMMARY: ALERT AND ABLE TO ANSWER QUESTIONS THAT ARE YES AND NO, ABLE TO WIGGLE TOES AND HOT SAW OPERATOR, FOLLOWS DIRECTIONS, WEAK. PROPOFOL INCREASED TO 16MCQ DUE TO HER FIGHTING VENT SOME. PAIN MANAGED WITH FENTANYL. LS DIM IN BASES, VENT CONTINUES ON AC/VC SETTINGS AT 16/400/10/40%, SATS MAINTAINED >92%. LEVO CONTINUES AT 3MCQ/HR TO MAINTAIN MAP >60. PIVOT TUBE FEED INCREASED TO 35ML/HR, RESIDUALS RANGED FROM 60-120CC OF DARK GREEN BILE/FORMULA. NO BM NOTED. URINE SCANT 50CC DARK MERLINE URINE. NO OTHER CHANGES TO NOTE. REPORT GIVEN TO DAYSHIFT.
--- NOTE | 2021-11-17 08:08 | NUR ---
ASSUMED CARE PT IN BED INTUBATED AND SEDATED W/ 16MCG OF PROPOFOL. 16/400/5/40% SPO2 >92%. MAP >65 ON 3MCG OF LEVOPHED. RT WAS IN AND TITRATED PEEP DOWN TO 5 FROM 10 THIS AM. PT IS ALERT AND ABLE TO COMMUNICATE THROUGH NODS/SHAKING HEAD. WAS ABLE TO DISCERN THAT SHE IS HAVING DIFFICULTY SLEEPING AND TITRATING PROPOFOL UP DURING THE NIGHT WILL BE BENEFICIAL. HD TODAY.
[2021-11-17 13:51] LABS: Vancomycin, Random 23.6 ug/mL
--- NOTE | 2021-11-17 16:24 | NUR ---
UPDATE PT EXTUBATED ON 4L NC AT 1616 W/ KYRA RT. PROCEDURE WENT SMOOTHLY AND PT IS SO FAR TOLERATING BEING OFF VENTILATOR. PT STATED THAT SHE IS FEELING GENERALIZED NUMBNESS/TINGLING; DISCUSSED WITH VERIFY REP AND MARIANO VALERIO.
--- NOTE | 2021-11-17 18:37 | NUR ---
SHIFT SUMMARY PT IS ALERT AND ORIENTED. MAP >65 ON 3 MCG OF LEVOPHED. SPO2 >92% ON 4L NC. PT WAS EXTUBATED AT 1616 TODAY AND IS TOLERATING NC WELL. TROUBLE MANAGING PAIN (PAIN MANAGEMENT TOO SHORT) W/ ABDOMEN BEING THE PRIMARY SOURCE AND 25MCG OF FENTANYL USED FOR MANAGEMENT. DISCUSSED WITH PT AND MARIANO VALERIO THAT TOMORROW IF SHE PASSES SWALLOW EVAL, WE CAN ASK FOR PO PAIN MEDICATION FOR LONGER LASTING COVERAGE. LUNG SOUNDS ARE CLEAR. BOWEL TONES STILL ABSENT; TENDER TO PALPATION. DAUGHTER HAS BEEN NOTIFIED WHO STATED SHE WILL NOTIFY BROTHER. SISTER'S PHONE SEEMS TO BE DISCONNECTED.
--- NOTE | 2021-11-17 20:00 | NUR ---
ASSUMED CARE OF PT AT 1915. REPORT RECEIVED AT BEDSIDE. PT PRESENTS IN BED. PAINFUL. GAURDING HER ABDOMEN. PERCUSION ASSESSMENT OF ABDOMEN REVEALS VERY HOLLOW (GAS) SOUNDS. PT AGREES PAIN PRIMARILY LOCATED IN UPPER QUADRANTS. DR MILLER IN UNIT AND AGREES TO HAVE ABDOMINAL XRAY DONE TO ASSESS. THIS IN PROCESS. WILL REVIEW CHART AND PLAN OF CARE FOR THIS PT.
--- NOTE | 2021-11-17 23:14 | NUR ---
PER ORDERS, 16 IVORIAN SALEM SUMP PLACED TO LEFT NARE. PT TOLERATES FAIR WITHOUT BLEED. IMMEDIATE RETURN OF GAS AND JARVIS COLORED LIQUID. AFTERWARDS, PT STATES HER PAIN IN ABDOMEN HAS REDUCE A LOT. NOW ABLE TO PALPATE ABDOMEN WITHOUT PT BEING PAINFUL. LOW INTERMITTANT WALL SUCTION CONTINUES. PT ABLE TO REST AT THIS TIME.
[2021-11-18 00:09] LABS: HBSAG SCREEN Negative (Negative); HCV AB <0.1 (0.0-0.9); HEP A AB, IGM Negative (Negative); HEP B CORE AB, IGM Negative (Negative)
[2021-11-18 05:10] LABS: Hematocrit 30.1 % (33.0-51.0); Hemoglobin 9.5 g/dL (11.5-16.0); Mean Corpuscular HGB Conc 31.6 g/dL (31.5-36.5); Mean Corpuscular Volume 82 fL (80-100); Platelet Count 87 K/mm3 (150-400); RDW Coefficient Variation 15.7 % (11.7-14.2); RDW Standard Deviation 46.9 fL (35.1-46.3); Red Blood Cell Count 3.66 M/mm3 (3.80-5.20); White Blood Cell Count 10.56 K/mm3 (4.00-11.30)
[2021-11-18 05:32] LABS: Albumin, Blood 2.3 g/dL (3.4-5.0); Anion Gap 11 mmol/L (6-16); Blood Urea Nitrogen 101 mg/dL (8-24); Bun/Creatinine Ratio 29.8 (12.0-20.0); CO2, Blood 26 mmol/L (21-32); Calcium, Blood 8.1 mg/dL (8.5-10.1); Chloride, Blood 100 mmol/L (98-108); Creatinine, Blood 3.39 mg/dL (0.40-1.00); Glomerular Filtration Rate 13 (60-); Glucose, Blood 110 mg/dL (70-99); Phosphorus, Blood 5.2 mg/dL (2.5-4.9); Sodium, Blood 137 mmol/L (136-145)
[2021-11-18 05:58] LABS: BAND PERCENT MAN 7 % (0-8); BASOPHILS PERCENT MAN 0 % (0-2); EOSINOPHILS PERCENT MAN 0 % (0-6); LYMPHOCYTES ABSOLUTE MAN 0.42 K/mm3 (0.84-5.20); LYMPHOCYTES PERCENT MAN 4 % (21-46); METAMYELOCYTE ABSOLUTE MAN 0.21 K/mm3 (0.00-0.00); METAMYELOCYTE PERCENT MAN 2 % (0-0); MONOCYTES ABSOLUTE MAN 0.21 K/mm3 (0.16-1.47); MONOCYTES PERCENT MAN 2 % (4-13); MYELOCYTE ABSOLUTE MAN 0.21 K/mm3 (0.00-0.00); MYELOCYTE PERCENT MAN 2 % (0-0); SEG NEUTROPHILS PERCENT MAN 83 % (41-73); TOTAL CELLS COUNTED 100
--- NOTE | 2021-11-18 06:16 | NUR ---
PT HAS A FEW ICE CHIPS SECONDARY TO SORE THROAT. HAS HAD GOOD IMPROVEMENT IN PAIN LEVEL TO ABDOMEN. NO NAUSEA. NGT CONTINUES TO LIWS. BROWN COLORED RETURNS. PT NO LONGER TENDER TO ABDOMINAL PALPATION. TOLERATES TURNS WELL IN BED. HAS BEEN MEDICATED SEVERAL TIMES WITH 25 MCG FENTANYL FOR ABDOMINAL PAIN, SORE THROAT, AND BACK PAIN. PT DOES HAVE HISTORY OF SEVERAL BACK AND NECK SURGERIES. THIS AFFECTIVE FOR PAIN MANAGEMENT. WILL CONTINUE TO MONITOR PT, AND WILL REPORT OFF TO ONCOMING RN.
--- NOTE | 2021-11-18 13:13 | NUR ---
PT TO CT SCAN FOR ABDOMEINAL CT. PT TOLERATED ALL VERY WELL. MEDICATED WITH PAIN MEDS BEFORE TRANSPORT. REPOSITIONED UPON RETURN. CONTINUES WITH GREEN THICK RETURN IN NGT.
--- NOTE | 2021-11-18 15:14 | NUR ---
PT CONTINUES WITH ABDOMINAL PAIN, IT IS INTERMITTENT AND PT IS MORE UNCOMFORT- ABLE WITH HER BACK. SHE IS ASSISTING WITH CARE, SHE IS TOTALLY ORIENTED AND APPROPRIATE. REMEMBERS THINGS SAID TO HER. CONTINUES ON 5L/NC. SINUS RHYTHM WITH PACS. MEDS PER APR. DAUGHTER AT THE BEDSIDE.
--- NOTE | 2021-11-18 16:01 | NUR ---
ADDENDUM TO FLOWSHEET @ 1044 [address] GOULD IN icu BED 8. PT HAS LEFT IJ FOR TEMP DIALYSIS ACCESS. DIFFICULTY WITH ASPIRATION AND INFUSION ON BOTH PORTS. LINE SWITHCED, FLUSHED AND RETRIED. UNABLE TO OBTAIN AN ADEQUATE FLOW, ARTERIAL PRESSURES EXCEEDING 400MMG. DISCUSSED WITH SENIOR RN ALESIA RETANA AND DECISION MADE STOP AND HAVE GUM DIPPER COME IN TO EVALUATE. DR MILLER IN TO EVALUATE, DECISION MADE TO PULL CATHETER AND DISCONTINUE DIALYSIS TODAY. DR GOULD NOTIFIED. PT STABLE, RESTING QUIETLY. RN TO PULL IJ. WILL CONTINUE TO COMMUNICATE WITH MD AND PRIMARY RN. MARC
--- NOTE | 2021-11-18 18:35 | NUR ---
ELLEN HAS DONE WELL TODAY. SHE HAS BEEN ORIENTED AND APPROPRIATE T/O THE DAY. SHE CONTINUES WITH ABDOMINAL AND BACK PAIN AND HAS BEEN MEDICATED T/O THE DAY. SHE WENT TO CT SCAN FOR ABDOMEN WITH JUST SHOWING INFLAMMATION AND FLUID IN THE INTESTINES. OXYGEN AT 5L/NC, BELLY QUIET, JAIMES WITH MINIMAL OUTPUT, NO BM THIS SHIFT. FEET WITH GOOD CIRCULATION W/D.
--- NOTE | 2021-11-18 19:20 | NUR ---
ASSUMED CARE OF PT AT 1900. REPORT RECEIVED AT BEDSIDE. PT PRESENTLY SLEEPING IN BED. NO APPARENT DISTRESS. NGT TO LOW INTERMITTANT SUCTION. BROWN/JARVIS COLORED LIQUID RETURNED. WILL REVIEW CHART AND PLAN OF CARE FOR THIS PT.
--- NOTE | 2021-11-18 23:08 | NUR ---
HAVE PLACED HIGH FLOW NASAL CANNULA. PT WHEN ASLEEP TENDS TO DESATURATE TO <90 PERCENT. WILL TITRATE O2 TO MAINTAIN SATURATIONS >90 PERCENT. PT CONTNUES TO LOW INTERMITTANT SUCTION. PT STATES THAT HER ABDOMEN IS FEELING SOMEWHAT BETTER. PT HAS BEEN MEDICATED WITH FENTANYL 25 MCG'S ONCE SECONDARY TO BACK/NECK PAIN. PT HAS HISTORY OF MULTIPLE BACK/NECK SURGERY.
[2021-11-19 05:31] LABS: Hematocrit 27.5 % (33.0-51.0); Hemoglobin 8.7 g/dL (11.5-16.0); Mean Corpuscular HGB 25.7 pg (26.0-34.0); Mean Corpuscular HGB Conc 31.6 g/dL (31.5-36.5); Mean Corpuscular Volume 81 fL (80-100); Mean Platelet Volume 12.9 fL (9.1-12.4); Platelet Count 115 K/mm3 (150-400); RDW Coefficient Variation 15.6 % (11.7-14.2); RDW Standard Deviation 46.4 fL (35.1-46.3); Red Blood Cell Count 3.39 M/mm3 (3.80-5.20); White Blood Cell Count 13.55 K/mm3 (4.00-11.30)
[2021-11-19 05:56] LABS: Albumin, Blood 1.9 g/dL (3.4-5.0); Anion Gap 14 mmol/L (6-16); Blood Urea Nitrogen 127 mg/dL (8-24); Bun/Creatinine Ratio 33.7 (12.0-20.0); CO2, Blood 24 mmol/L (21-32); Calcium, Blood 7.8 mg/dL (8.5-10.1); Chloride, Blood 103 mmol/L (98-108); Creatinine, Blood 3.77 mg/dL (0.40-1.00); Glomerular Filtration Rate 12 (60-); Glucose, Blood 108 mg/dL (70-99); Phosphorus, Blood 7.4 mg/dL (2.5-4.9); Sodium, Blood 141 mmol/L (136-145)
[2021-11-19 06:32] LABS: BAND PERCENT MAN 2 % (0-8); BASOPHILS PERCENT MAN 0 % (0-2); EOSINOPHILS PERCENT MAN 0 % (0-6); LYMPHOCYTES ABSOLUTE MAN 0.27 K/mm3 (0.84-5.20); LYMPHOCYTES PERCENT MAN 2 % (21-46); MONOCYTES PERCENT MAN 3 % (4-13); MYELOCYTE ABSOLUTE MAN 0.27 K/mm3 (0.00-0.00); MYELOCYTE PERCENT MAN 2 % (0-0); NEUTROPHILS ABSOLUTE MAN 12.46 K/mm3 (1.96-9.15); PROMYELOCYTE ABSOLUTE MAN 0.13 K/mm3 (0.00-0.00); PROMYELOCYTE PERCENT MAN 1 % (0-0); SEG NEUTROPHILS PERCENT MAN 90 % (41-73); TOTAL CELLS COUNTED 100
--- NOTE | 2021-11-19 07:35 | NUR ---
PT HAS BEEN MEDICATED WITH 25 MCG FENTANYL FOR ABDOMINAL, BACK, AND NECK PAIN AT APPROX Q 3 HOURS. PT HAS GOOD RELIEF WITH THIS. 725 ML TOTAL OUTPUT FROM NGT. PT HAS BEEN ABLE TO SLEEP MORE DURING THIS NIGHT. HAS TOLERATED Q 2 HOUR TURNS. PT HAS BEEN NPO SINCE MIDNIGHT WITH ANTICIPATION OF PERMACATH PLACEMENT TODAY. REPORT GIVEN TO IMAN GARZA
--- NOTE | 2021-11-19 08:13 | NUR ---
ELLEN AWAKENS EASILY, CONVERSES WELL. VOICE WEAK, LIMBS WEAK. AND DR. GOULD HAVE VISITED. SHE IS NPO FOR PERMACATH PLACEMENT TODAY. SHE STATES SHE IS GRATEFUL TO BE "HERE" BUT WANTS TO GET STRONGER. NG WITH GREEN THICK RETURN. INTERMITTENT BELLY PAIN, CRIES OUT. FEET W/D/PINK, GOOD PULSES. SATS MID 80S VIA NASAL ALAR PROBE. FINGERS COLD AND CLAMMY, DIFFICULT TO READ OXIMETRY. CENTRAL LINE IN RIGHT NECK, INTACT, GOOD FLUSH.
--- NOTE | 2021-11-19 10:55 | NUR ---
CAME TO GET CONSENT FOR PLACEMENT OF PERMACATH, PRIYA FROM [facility] ASKED FOR A COVID TEST, LULÚ FROM LAB CAME DOWN TO DO THE TEST. PT TOLERATED WELL, ASKED ABOUT MORE PAIN MEDICATION, NOT TIME YET.
[2021-11-19 11:02] LABS: SARS-Cov-2 (COVID-19) Antigen Negative (NEGATIVE)
--- NOTE | 2021-11-19 11:51 | NUR ---
1145 PT TO DOUGH MAKER FOR PLACEMENT OF PERMACATH. PLAN TO DO DIALYSIS AT 1300. PLAN TO START TPN WHEN ORDERS RECEIVED.
--- NOTE | 2021-11-19 13:26 | NUR ---
RETURNED FROM NUCLEAR MEDICINE PHYSICIAN, RIGHT CHEST PORT PLACED, SHE TOLERATED IT WELL. SHE RETURNS ASKING FOR ADDITIONAL PAIN MEDICATION, STATING THAT IT IS HER BACK. SITTING UP IS ONE THING THAT HELPS, OFFERING HEAT PAD, SHE ALSO ASKS FOR THOSE "LEG PUMPERS". SHE HAS THEM PLACED. SHE CONTINUES TO BE INCREDIBLY WEAK, SHE IS ASKED TO PRACTICE MOVING HER ARMS AND HER LEGS. TO WIGGLE HER FEET AND ROTATE HER ANKLES.
--- NOTE | 2021-11-19 14:44 | NUR ---
ELLEN HAS HER SONS X2 AND HER DAUGHTER HERE, SPEECH THERAPY IS WORKING WITH HER AND DIALYSIS IS HAPPENING. SHE IS HAPPY AND ENGAGING. SHE DENIES ANY NEEDS AT THIS TIME. THE FAMILY IS SITTING BY HER SIDE ENJOYING HER AND TELLING STORIES.
--- NOTE | 2021-11-19 16:16 | NUR ---
ELLEN IS ASKING MORE FREQUENTLY FOR PAIN MEDICATION, THE KPAD IS ON HER BACK, SHE SAID IT ISN'T TOO WARM. ALSO STATED THAT NOTHING SEEMS TO BE HELPING HER GET COMFORTABLE. SHE HAS LABORED BREATHING, SHE IS PALE, LOOKS ILL. SHE SOUNDS WEAKER THAN YESTERDAY. MORE FRAGILE. ENCOURAGED TO MOVE HER ARMS AND LEGS MUCH POSSIBLE TO GET HER CIRCULATION GOING.
[2021-11-19 17:38] LABS: Vancomycin, Random 9.8 ug/mL
--- NOTE | 2021-11-19 18:31 | NUR ---
ELLEN HAS HAD AN ADMITTEDLY ROUGH DAY. SHE SAYS TODAY HAS BEEN "HELL". SHE HAS HAD MORE PAIN AND DISCOMFORT, SHE HAS BEEN MORE LABORED IN HER BREATHING, SHE SEEMS WEAKER AND MORE "EXHAUSTED". SHE SAID SHE WOULD LIKE TO SLEEP FOR 3 DAYS WHEN ASKED WHAT SHE NEEDS. THE TORADOL AND THE FENTANYL HAVE CAUSED HER TO REST FOR NOW, SHE IS NOT BEING DISTURBED BY STAFF WALKING IN TO HER ROOM. SHE ONLY HAD 100ML OUT OF HER NG THIS SHIFT, BUT SHE DID HAVE 175ML OF URINE. SHE HAD DIALYSIS BUT THEY DID NOT TAKE ANY FLUID OFF. ATTEMPTS TO MAKE HER COMFOR- TABLE HAVEN'T BEEN SUCCESSFUL. WILL CONTINUE TO MONITOR AND TREAT.
--- NOTE | 2021-11-19 20:00 | NUR ---
ASSUMED CARE OF PT AT 1900. REPORT RECEIVED AT BEDSIDE. PT PRESENTS IN BED. EXPRESSES THAT SHE IS VERY FATIQUED TODAY AND THAT HER DAY WAS VERY INVOLVED. BED IS SET TO AUTO-ROTATE, DID PLACE EXTRA PILLOWS UNDER PT'S SIDES TO HELP CUSHION HER AND HELP WITH BACK PAIN ISSUES. WILL REVIEW CHART AND PLAN OF CARE FOR THIS PT.
--- NOTE | 2021-11-19 22:00 | NUR ---
SPOKE WITH DR MILLER THIS EVENING CONCERNING PT'S CONTINUED BACK PAIN. ORDER CHANGE TO DILAUDID. PT HAS DECREASED NGT DRAINAGE TO LOW INTERMITTANT WALL SUCTION. PT HAS WARM PAD SET TO INTERMITTENT HEAT.
--- NOTE | 2021-11-20 04:01 | NUR ---
PT WAS MEDICATED ONE TIME WITH 0.5 MG DILAUDID IV WITH VERY GOOD RELIEF. PT HAS SLEPT AFTER THIS DOSE. PT'S FAMILY HAS CALLED TO CHECK ON PT'S STATUS. UPDATE GIVEN. DID DISCUSS WITH PT EARLIER IN EVENING HOW SHE WAS FEELING AND THAT IF ANYTHING WAS TO HAPPEN WOULD SHE STILL LIKE FULL TREATMENT. SHE STATED THAT SHE WANTED TO CONTINUE A 'FULL CODE' SECONDARY TO HER GRANDCHILDREN AND WANTING TO BE AROUND FOR THEM.
[2021-11-20 04:58] LABS: Hematocrit 26.5 % (33.0-51.0); Hemoglobin 8.5 g/dL (11.5-16.0); Mean Corpuscular HGB 25.8 pg (26.0-34.0); Mean Corpuscular HGB Conc 32.1 g/dL (31.5-36.5); Mean Corpuscular Volume 81 fL (80-100); Mean Platelet Volume 12.1 fL (9.1-12.4); Platelet Count 143 K/mm3 (150-400); RDW Coefficient Variation 15.4 % (11.7-14.2); RDW Standard Deviation 45.1 fL (35.1-46.3); Red Blood Cell Count 3.29 M/mm3 (3.80-5.20); White Blood Cell Count 19.32 K/mm3 (4.00-11.30)
[2021-11-20 05:21] LABS: Magnesium, Blood 2.4 mg/dL (1.6-2.4)
[2021-11-20 05:25] LABS: Alanine Aminotransfer (ALT/SGP 256 U/L (12-78); Albumin, Blood 1.9 g/dL (3.4-5.0); Albumin/Globulin Ratio 0.6 (0.8-1.8); Alk Phos 139 U/L (50-136); Anion Gap 8 mmol/L (6-16); Aspartate Aminotrans (AST/SGOT 128 U/L (12-37); Bilirubin, Total 0.8 mg/dL (0.1-1.0); Blood Urea Nitrogen 72 mg/dL (8-24); Bun/Creatinine Ratio 29.8 (12.0-20.0); CO2, Blood 29 mmol/L (21-32); Calcium, Blood 7.6 mg/dL (8.5-10.1); Chloride, Blood 103 mmol/L (98-108); Creatinine, Blood 2.42 mg/dL (0.40-1.00); Globulin, Blood 3.1 g/dL (2.2-4.0); Glomerular Filtration Rate 20 (60-); Glucose, Blood 145 mg/dL (70-99); Phosphorus, Blood 4.3 mg/dL (2.5-4.9); Potassium, Blood 4.1 mmol/L (3.5-5.5); Sodium, Blood 140 mmol/L (136-145); Triglycerides 158 mg/dL (30-160)
[2021-11-20 05:33] LABS: BAND PERCENT MAN 7 % (0-8); BASOPHILS PERCENT MAN 0 % (0-2); EOSINOPHILS PERCENT MAN 0 % (0-6); LYMPHOCYTES ABSOLUTE MAN 0.19 K/mm3 (0.84-5.20); LYMPHOCYTES PERCENT MAN 1 % (21-46); METAMYELOCYTE ABSOLUTE MAN 0.19 K/mm3 (0.00-0.00); METAMYELOCYTE PERCENT MAN 1 % (0-0); MONOCYTES PERCENT MAN 0 % (4-13); MYELOCYTE ABSOLUTE MAN 0.38 K/mm3 (0.00-0.00); MYELOCYTE PERCENT MAN 2 % (0-0); NEUTROPHILS ABSOLUTE MAN 18.54 K/mm3 (1.96-9.15); SEG NEUTROPHILS PERCENT MAN 89 % (41-73); TOTAL CELLS COUNTED 100
--- NOTE | 2021-11-20 05:44 | NUR ---
PT HAS HAD GOOD PAIN MANAGEMENT WITH DILAUDID AT 0.5 MG. HAS TOLERATED AUTO TURN FUNCTION ON BED. HAVE PROVIDE MULTIPLE EXTRA PILLOWS FOR COMFORT. CLAMPED NGT THIS MORNING AND GAVE PT A POPCICLE. PT WAS ABLE TO EAT THE WHOLE POPCICLE WITHOUT PAIN OR NAUSEA. PT HAS BEEN ABLE TO SLEEP THIS NIGHT. DOES ADMIT THAT SHE FEELS SOMEWHAT BETTER THIS MORNING. WILL CONTINUE TO MONITOR PT, AND WILL REPORT OFF TO ONCOMING RN.
--- NOTE | 2021-11-20 07:30 | NUR ---
ASSUMED CARE OF PT AT 0700 PT SITTING UP IN BED WITH PILLOWS UNDER ALL EXTREMETIES. PT EATING POPSYCLE AT THIS TIME. A/O X4. NG TUBE PATENT AND ON INTERMITANT SUCTION. NS TKO AND TPN RUNNING AT THIS TIME. JAIMES PATENT AND DRAINING TO GRAVITY. SEE ASSESSMENT FOR FURTHER DETAILS.
[2021-11-20 12:40] LABS: Vancomycin, Random 12.6 ug/mL
--- NOTE | 2021-11-20 18:39 | NUR ---
END OF SHIFT SUMMARY PT A/O X4. PAIN MANAGMENT BETTER THIS SHIFT PER PT, HOWEVER SHE IS STILL VERY PAINFUL 08/23 AFTER 0.5MG DILAUDID GIVEN. JAIMES CATH PATENT AND DRAINGING TO GRAVITY. SCAN AMOUNT OF URINE PRODUCTION. DIALYSIS REPORTS 1000 MLS OUT TODAY WITH TREATMENT. NO BM THIS SHIFT. PT GIVEN ICE POPSYCLES WITH NG SUCTION ON FOR PLEASURE OF PT. TPN RUNNING AT 53 MLS/HR. NS TKO RUNNING AT 10 MLS/HR. 5L NC WITH CLEAR LUNG SOUNDS BILATERALLY, DIMINISHED SLIGHTLY.
--- NOTE | 2021-11-20 19:15 | NUR ---
ASSUMED CARE OF PT @1900. PT IS ALERT, ORIENTED, AND PLEASANT DURING BEDSIDE REPORT. NG TUBE SET TO LIS. TKO 10MLS/HR AND CPN 53MLS/HR INFUSING THROUGH DIALYSIS CATH. O2 5L/MIN VIA NC. SPO2 >92%, RR 16, HR 80'S. MAP >65
--- NOTE | 2021-11-21 01:00 | NUR ---
PT TRANSFERRED TO PCU. REPORT GIVEN TO ISRAEL VALERIO.
[2021-11-21 04:24] LABS: Hematocrit 29.4 % (33.0-51.0); Mean Corpuscular HGB 25.4 pg (26.0-34.0); Mean Corpuscular HGB Conc 30.6 g/dL (31.5-36.5); Mean Corpuscular Volume 83 fL (80-100); Platelet Count 180 K/mm3 (150-400); RDW Coefficient Variation 15.6 % (11.7-14.2); RDW Standard Deviation 46.7 fL (35.1-46.3); Red Blood Cell Count 3.55 M/mm3 (3.80-5.20); White Blood Cell Count 25.31 K/mm3 (4.00-11.30)
[2021-11-21 04:25] LABS: Mean Platelet Volume 13.4 fL (9.1-12.4)
[2021-11-21 04:39] LABS: Albumin/Globulin Ratio 0.6 (0.8-1.8); Bilirubin, Total 0.7 mg/dL (0.1-1.0); Bun/Creatinine Ratio 28.8 (12.0-20.0); Calcium, Blood 7.8 mg/dL (8.5-10.1); Creatinine, Blood 2.26 mg/dL (0.40-1.00); Globulin, Blood 3.4 g/dL (2.2-4.0); Magnesium, Blood 2.2 mg/dL (1.6-2.4); Phosphorus, Blood 3.9 mg/dL (2.5-4.9); Potassium, Blood 4.2 mmol/L (3.5-5.5); Total Protein, Blood 5.4 g/dL (6.4-8.2)
[2021-11-21 04:54] LABS: BAND PERCENT MAN 18 % (0-8); BASOPHILS PERCENT MAN 0 % (0-2); EOSINOPHILS PERCENT MAN 0 % (0-6); LYMPHOCYTES ABSOLUTE MAN 0.25 K/mm3 (0.84-5.20); LYMPHOCYTES PERCENT MAN 1 % (21-46); MONOCYTES PERCENT MAN 2 % (4-13); MYELOCYTE ABSOLUTE MAN 0.25 K/mm3 (0.00-0.00); MYELOCYTE PERCENT MAN 1 % (0-0); NEUTROPHILS ABSOLUTE MAN 24.29 K/mm3 (1.96-9.15); SEG NEUTROPHILS PERCENT MAN 78 % (41-73); TOTAL CELLS COUNTED 100
--- NOTE | 2021-11-21 05:51 | NUR ---
ASSUMED CARE MID-SHIFT, PT TRANSFERRED FROM ICU ON 5L NC, NGT TO LIS - PUT OUT 50ML, JAIMES IN PLACE - PUT OUT OLIGURIC MERLINE URINE. DILAUDID GIVEN ONE TIME. PT OTHERWISE COMFORTABLE EATING ICE CHIPS. CHLORASEPTIC THROAT SPRAY AT BEDSIDE. UPDATED SISTER, OLEG. CPN INFUSING THROUGH IV. NSR/PVS/PACS NOTED.
--- NOTE | 2021-11-21 09:26 | NUR ---
ASSUMED CARE PT IS ALERT AND ORIENTED W/ SPO2 >92% ON 5L NC. MAP >65. PT C/O'S OF SORE THROAT, LIKELY FROM INTUBATION, AND HAS MED SPRAY. PAIN IS STILL SEVERE AND IS GENERALIZED "FROM MY NECK DOWN TO MY TOES". PT HAD A LARGE LIQUID BROWN BOWEL MOVEMENT.
--- NOTE | 2021-11-21 10:49 | NUR ---
UPDATE DR PAULSON UPDATED ABOUT PT'S GI. NG TUBE CLAMPED AND SLOW CLEAR LIQUID DIET STARTED PER ORDER. CHECK IN RESIDUALS IN 4 HOURS.
--- NOTE | 2021-11-21 15:32 | NUR ---
UPDATE PT HAS HAD CONSISTENT DIARRHEA THIS SHIFT. PT REQUESTED RECTAL TUBE D/T FREQUENT CHANGING WEARING HER OUT. TOLERATING LIQUIDS W/ NO NAUSEA. NG TUBE PUT TO SUCTION 4 HOURS AFTER BEING CLAMPED PER ORDER W/ NO OUTPUT.
--- NOTE | 2021-11-21 17:14 | NUR ---
SHIFT SUMMARY PT IS ALERT AND ORIENTED. SPO2 >92% ON 4L NC. MAP >65. NG TUBE DC'D AT 1700 PER ORDER. PT IS TOLERATING CLEAR LIQUID DIET WITH NO C/O NAUSEA. 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 LARGE AMOUNTS OF DIARRHEA THROUGHOUT SHIFT. RECTAL TUBE PLACED PER PT REQUEST. JAIMES DRAINING TO GRAVITY. MAY ASK DR. PAULSON ABOUT PO PAIN MEDICATION FOR LONGER COVERAGE. IF DIARRHEA PERSISTS TO TOMORROW; DR PAULSON MAY CONSIDER SENDING STOOL FOR C. DIFF.
--- NOTE | 2021-11-21 19:15 | NUR ---
ASSUMPTION OF CARE PT IS A&OX4, PARTICIPATES IN CONVERSATION AND CARE. SHE IS RECEIVING CPN. CENTRAL LINE AND DIALYSIS CATH REMAIN IN PLACE, PLAN TO REMOVE TOMORROW AND PLACE PICC. LUNGS CLEAR AND DIMINISHED THROUGHOUT, PT ON 3L NC. RT AT BEDSIDE WITH TREATMENT. PT ON TELEMETRY. SINUS RHYTHM WITH PACS AND PVCS, RATE VARYING BETWEEN 90S-110S. STRONG PULSES THROUGHOUT, BP STABLE WITH MAP >65. PT DENIES PALPITATIONS. SHE REPORTS PAIN FROM HER "NECK TO TOES". ABDOMEN SOFT, TENDER TO PALPATION. RECTAL TUBE CONTINUES TO DRAIN LIQUID BROWN STOOL TO GRAVITY. JAIMES PATENT AND DRAINING MERLINE URINE. BED IN LOW POSITION, BEDSIDE TABLE AND CALL LIGHT WITHIN REACH. SEE SHIFT ASSESSMENT.
[2021-11-22 02:30] LABS: PCO2 Arterial 42.6 mmHg (35-45); pH Blood Arterial 7.36 (7.35-7.45)
[2021-11-22 02:33] LABS: PO2 Arterial 49 mmHg (80-100)
[2021-11-22 02:41] LABS: Hematocrit 26.6 % (33.0-51.0); Hemoglobin 8.3 g/dL (11.5-16.0); Mean Corpuscular HGB 26.5 pg (26.0-34.0); Mean Corpuscular HGB Conc 31.2 g/dL (31.5-36.5); Mean Corpuscular Volume 85 fL (80-100); Mean Platelet Volume 12.6 fL (9.1-12.4); Platelet Count 194 K/mm3 (150-400); RDW Coefficient Variation 16.1 % (11.7-14.2); RDW Standard Deviation 48.6 fL (35.1-46.3); Red Blood Cell Count 3.13 M/mm3 (3.80-5.20); White Blood Cell Count 28.54 K/mm3 (4.00-11.30)
--- NOTE | 2021-11-22 02:45 | NUR ---
UPDATE PT WOKE FROM SLEEPING, C/O HEARTBURN. SHE STS "IT FEELS LIKE I HAVE AN ANVIL ON MY CHEST". PT FLUSHED, CLAMMY AND REQUESTING A FAN. RR INCREASING TO 20S-30S. EKG DONE. PT BECOMING HYPOTENSIVE WITH MAP IN 50S. VERIFIED WITH MANUAL BP. HOSPITALIST RESIDENT NOTIFIED AND AT BEDSIDE FOR EVAL. ORDER RECEIVED FOR LABS, NS BOLUS, AND AMIODARONE BOLUS. SPO2 DECREASED TO 70S. RT AT BEDSIDE. NC REPLACED WITH NRB, SPO2 REMAINS LOW. PT PLACED ON CPAP. PT REPORTS CHEST FEELING "BETTER" AND COMFORT WITH CPAP ON. ABG RESULTS CALLED TO DR Acevedo. PLAN TO MONITOR OVER 1 HR. IF PT REMAINS TACHYCARDIC, PLAN TO START AMIODARONE GTT. BP IMPROVING WITH MAP >65.
[2021-11-22 02:50] LABS: Albumin, Blood 1.8 g/dL (3.4-5.0); Anion Gap 14 mmol/L (6-16); Blood Urea Nitrogen 93 mg/dL (8-24); Bun/Creatinine Ratio 31.6 (12.0-20.0); CO2, Blood 23 mmol/L (21-32); Calcium, Blood 8.2 mg/dL (8.5-10.1); Chloride, Blood 96 mmol/L (98-108); Creatinine, Blood 2.94 mg/dL (0.40-1.00); Glomerular Filtration Rate 16 (60-); Glucose, Blood 150 mg/dL (70-99); Phosphorus, Blood 4.2 mg/dL (2.5-4.9); Potassium, Blood 4.3 mmol/L (3.5-5.5); Sodium, Blood 133 mmol/L (136-145)
[2021-11-22 03:15] LABS: BAND PERCENT MAN 10 % (0-8); BASOPHILS PERCENT MAN 0 % (0-2); EOSINOPHILS PERCENT MAN 0 % (0-6); LYMPHOCYTES ABSOLUTE MAN 0.57 K/mm3 (0.84-5.20); LYMPHOCYTES PERCENT MAN 2 % (21-46); MONOCYTES ABSOLUTE MAN 0.28 K/mm3 (0.16-1.47); MONOCYTES PERCENT MAN 1 % (4-13); NEUTROPHILS ABSOLUTE MAN 27.68 K/mm3 (1.96-9.15); SEG NEUTROPHILS PERCENT MAN 87 % (41-73); TOTAL CELLS COUNTED 100
--- NOTE | 2021-11-22 06:20 | NUR ---
PT TRANSFERRED TO ICU 5 VIA BED WITH 2 RN'S AT BEDSIDE AND 1 RT AND HEART MONITOR ATTATCHED. PT ON CPAP AND DENIES ANY SOB OR CHEST PAIN AT THIS TIME. PT HAS CENTRAL LINE TO [facility] WITH CPN AT 53CC/HR. PERMACATH TO R CHEST. PT HAD CT PE STUDY THAT WAS NEGATIVE. WILL HAVE AN ECHO TODAY. REPORT TO RAJENDRA RN.
--- NOTE | 2021-11-22 06:52 | NUR ---
UPDATE/TRANSFER TO ICU PT REPORTS NO LONGER HAVING CHEST PRESSURE. SHE STILL FEELS SOB AND IS ON CPAP. PT TAKEN TO IMAGING FOR PE STUDY. AFTER RETURNING TO ROOM, PT IS NOTED TO HAVE UNEQUAL PUPILS, R 4MM AND L 2MM, SLUGGISH. PT REPORTS HX OF CATARACT SURGERY. PT REMAINS A&OX4. EQUAL STRENGTH WITH ALL EXTREMITIES. PT LYING ON R SIDE FOR COMFORT. PT TRANSFERRED TO ICU 5.
[2021-11-22 13:01] LABS: Vancomycin, Random 12.1 ug/mL
--- NOTE | 2021-11-22 14:09 | NUR ---
Spoke with Dr Sarmiento and discussed case earlier this AM. Pt may benefit from supportive visits and advanced care planning when appropriate. Pt resting in bed with her eyes closed wearing BIPAP. Son Guy arrives and appears somewhat caught off guard that Pt is in ICU and on BIPAP. Primary RN Maye provides update and reviews plan of care with son. This RN offered brief supportive visit. Palliative Care will F/U with Pt and family for supportive visits.
--- NOTE | 2021-11-22 14:35 | NUR ---
REASSESSMENT PT HAS BEEN DEPENDENT ON THE CPAP THROUGHOUT THE MORNING. PT TOLERATED A 5 MINTUE BREAK THIS MORNING WHILE ON 10L OXYMIZER BEFORE DESATURATING AND THEN TOLERATED A 10 MINTUE BREAK AFTER DIALYSIS, ALSO ON 10L OXYMZIER BEFORE HER WORK OF BREATHING INCREASED AND SPO2 DROPPED TO THE 80S. HER LUNG SOUNDS ARE IMPROVED AFTER DIALYSIS, BUT STILL REQUIRING 65% FIO2 TO KEEP SATS ABOVE 90. GETTING GOOD SPO2 READINGS HAS BEEN DIFFICULT DUE TO VERY COLD FINGERS. HAVE ATTEMPTED TO GET READING OS OFF OF MULTIPLE FINGERS, NOSE, EARS AND FOREHEAD. CURRENTLY HER FOREHEAD IS READING THE BEST. PT GOT VERY AGITATED ABOUT LONGTERM THROUGH DIALYSIS, SAYING SHE FELT CLAUSTROPHOBIC WITH THE CPAP ON, HR WAS GOING UP TO 130S, BP ELEVATED. GAVE PT SOME PAIN MEDICATION AND SHE RELAXED SIGNIFICANTLY AND WAS ABLE TO REST THROUGHOUT THE REMAINDER OF DIALYSIS. PT REMAINS IN AFIB, RATE MOSTLY IN THE 90-LOW 100S. JAIMES WITH DARK YELLOW URINE. RECTAL TUBE WITH LIQUID BROWN OUTPUT. DISCUSSED REMOVING CENTRAL LINE WITH DR. NGUYEN AND PLAN IS TO PUT A PICC LINE IN, THEN REMOVE THE CENTRAL LINE. PT'S FAMILY CURRENTLY AT THE BEDSIDE AND UPDATED BY DR. NGUYEN.
[2021-11-22 16:15] LABS: Base Excess Venous 2.1 mmol/L; Bicarbonate Venous 25.6 mmol/L (24.0-30.0); PCO2 Venous 45.1 mmHg (38-42); pH Blood Venous 7.39 (7.34-7.37)
--- NOTE | 2021-11-22 17:56 | NUR ---
SHIFT SUMMARY PT WAS DEPENDENT ON THE CPAP THIS MORNING, BUT HAS BEEN ABLE TO STAY OFF THE CPAP SINCE AROUND 1400. SHE STARTED ON 10L OXYMIZER AND HAS BEEN TITRATED DOWN TO 8L. STILL DYSPNEIC WITH THE SLIGHTEST ACTIVITY SO NOT SAFE FOR MORE THAN OCCASIONAL SIPS OF WATER. SPOKE WITH DR. NGUYEN ABOUT THIS PT IS STILL ON CPN. RECEIVED ORDER FOR PICC LINE SO IJ CAN BE REMOVED. PICC LINE PLACED BY GHISLAINE AND ISAIAS, RNS, THEN RIJ REMOVED WITHOUT ANY COMPLICATIONS. TROPONIN RECHECKED THIS AFTERNOON AFTER EKG READ BY DR. ARAGON AND IT WAS STILL NEGATIVE. PT DENIES CHEST PAIN. PT'S RECTAL TUBE WITH LIQUID BROWN STOOL. RECTAL WAS PART WAY OUT AND LEAKING THIS EVENING SO REMOVED IT, BUT PT WAS HAVING CONTINOUS LEAKING OF LIQUID STOOL SO TUBE REPLACED. PT HAD MULTIPLE FAMILY MEMBERS IN TODAY THAT HAD AN EXTENSIVE DISCUSSION WITH DR. NGUYEN ABOUT PT'S STATUS AND PROGNOSIS.
--- NOTE | 2021-11-22 20:46 | NUR ---
PATIENT RESTING QUIETLY APPEARS TO BE SLEEPING, AWAKENS TO SLIGHT STIMULI. A&O C/O DRY MOUTH REQUESTING WATER. VIDA WATER WELL. PATIENT JAKE NAUSEA OR ABD PAIN. PATIENT APPEARS SOB WITH TALKING AND WITH REPOSITIONING DENIES FEELING SOB. BIOX 95% ON 8L/OXY. EXTREMITIES COLD TO TOUCH, PATIENT VERBALIZED FEELING COMFORTABLE. CPN INFUSING 53 CC/HR.
[2021-11-23 04:30] LABS: Hematocrit 25.2 % (33.0-51.0); Hemoglobin 7.7 g/dL (11.5-16.0); Mean Corpuscular HGB 25.8 pg (26.0-34.0); Mean Corpuscular HGB Conc 30.6 g/dL (31.5-36.5); Mean Corpuscular Volume 84 fL (80-100); Mean Platelet Volume 12.9 fL (9.1-12.4); Platelet Count 212 K/mm3 (150-400); RDW Coefficient Variation 16.3 % (11.7-14.2); RDW Standard Deviation 47.7 fL (35.1-46.3); Red Blood Cell Count 2.99 M/mm3 (3.80-5.20)
[2021-11-23 04:46] LABS: Albumin, Blood 1.7 g/dL (3.4-5.0); Anion Gap 10 mmol/L (6-16); Blood Urea Nitrogen 68 mg/dL (8-24); Bun/Creatinine Ratio 28.8 (12.0-20.0); CO2, Blood 26 mmol/L (21-32); Calcium, Blood 7.7 mg/dL (8.5-10.1); Chloride, Blood 102 mmol/L (98-108); Creatinine, Blood 2.36 mg/dL (0.40-1.00); Glomerular Filtration Rate 21 (60-); Glucose, Blood 123 mg/dL (70-99); Phosphorus, Blood 3.4 mg/dL (2.5-4.9); Potassium, Blood 4.8 mmol/L (3.5-5.5); Sodium, Blood 138 mmol/L (136-145)
[2021-11-23 05:12] LABS: BAND PERCENT MAN 8 % (0-8); BASOPHILS PERCENT MAN 0 % (0-2); EOSINOPHILS ABSOLUTE MAN 0.29 K/mm3 (0.00-0.68); EOSINOPHILS PERCENT MAN 1 % (0-6); METAMYELOCYTE ABSOLUTE MAN 0.29 K/mm3 (0.00-0.00); METAMYELOCYTE PERCENT MAN 1 % (0-0); MONOCYTES PERCENT MAN 0 % (4-13); MYELOCYTE ABSOLUTE MAN 0.58 K/mm3 (0.00-0.00); MYELOCYTE PERCENT MAN 2 % (0-0); NEUTROPHILS ABSOLUTE MAN 27.93 K/mm3 (1.96-9.15); SEG NEUTROPHILS PERCENT MAN 88 % (41-73); TOTAL CELLS COUNTED 100
--- NOTE | 2021-11-23 06:39 | NUR ---
SUMMARY PATIENT SLEEPING OFF AND ON T/O NIGHT. CONTINUES TO BECOME SOB WITH SLIGHT ACTIVITY AND WITH TALKING. PATIENT VERBALIZED THAT THE SOB WITH ACTIVITY IS NOT NEW FOR HER. REMAINING ON 8L/OXY T/O NIGHT WITH BIOX RANGING 88-93%. RECTAL TUBE REMAINS IN PLACE DRAINING LIQUID BROWN STOOL. PERIAREA AND RECTAL AREA RED AND TENDER. PERMACATH CD&I TO RIGHT CHEST. CPN INFUSION CONTINUES. PATIENT VIDA PO WELL, WITH FREQUENT REQUESTS FOR DRINKS OF ICE WATER.
[2021-11-23 07:46] LABS: Albumin, Blood 1.7 g/dL (3.4-5.0); Albumin/Globulin Ratio 0.5 (0.8-1.8); Bilirubin, Direct 0.3 mg/dL (0.0-0.3); Bilirubin, Indirect 0.4 mg/dL (0.1-0.7); Bilirubin, Total 0.7 mg/dL (0.1-1.0); Globulin, Blood 3.4 g/dL (2.2-4.0); Total Protein, Blood 5.1 g/dL (6.4-8.2)
--- NOTE | 2021-11-23 09:41 | NUR ---
ASSUMED CARE OF PATIENT AT 0700, SHE IS ALERT AND ORIENTED. SHE IS SITTING IN THE BED IN A RECLINER POSITION. SHE IS VISIBLY SHORT OF BREATH, OXIMIZER ON AT 8L AND SHE IS BREATHING THROUGH HER MOUTH. O2 SATS @ 93%, HEART RATE 90'S. BP LABILE. PT CHEWING ON A POPSICLE AND REQUESTING ICE WATER. SHE REQUESTED TO BE OUT OF BED AND IN THE CHAIR. SHE WAS A 2 PERSON TRANSFER WITH ASSIST, SHE TOLERATED THE TRANSFER WITH SHORTNESS OF BREATH, BUT DIDN'T APPEAR TO BE BREATHING ANY FASTER OR HARDER BY APPEARANCE. SHE WAS THEN ASKED TO RETURN TO BED FOR THE DIALYSIS TREATMENT. SHE IS BEING MANAGED BY SN KLARISSA WITH CLOSE OBSERVATION AND ASSISTANCE BY THIS RN.
--- NOTE | 2021-11-23 12:02 | NUR ---
PT BECAME NAUSEATED AFTER EATING PUDDING WITH HER MEDICATIONS. ZOFRAN GIVEN. PT STATES NAUSEA IS RESOLVED. DIALYSIS CONTINUES, WILL BE COMPLETED SHORTLY.
--- NOTE | 2021-11-23 15:48 | NUR ---
SPEECH THERAPY FEELS PATIENT MAY LIKELY BE ASPIRATING WITH CLEAR LIQUIDS. FEELS IT WOULD BE OF BENEFIT TO NOT HAVE POPSICLES OR ICE WATER TO ONLY HAVE PUREE WITH NECTAR THICK LIQUIDS. WILL MAKE THIS TRANSITION, UNDERSTANDING THAT THIS WILL NOT MAKE HER VERY HAPPY. SHE IS CURRENTLY RESTING WITHOUT INCIDENT.
--- NOTE | 2021-11-23 18:32 | NUR ---
ELLEN CONTINUES ON THE OXYMIZER @ 6L. SHE CONTINUES TO HAVE DEEP LABORED BREATHING. SHE HAS BEEN IN SINUS RHYTHM WITH MULTIPLE PAC'S, SHE HAD ONE RUN OF V-TACH, 8 BEATS. SHE DENIED ANY CHEST PAIN OR DIZZINESS AT THAT TIME. SHE CONTINUES TO DESIRE TO HAVE ICE CHIPS, SHE WAS INFORMED JUST NOW THAT SHE CAN ONLY HAVE NECTAR THICK LIQUIDS WE THINK SHE MAY BE ASPIRATING. SHE WAS VERY DISAPPOINTED. SHE CONTINUES WITH JAIMES TO GRAVITY DRAINAGE WITH <100ML OUT, BUT HAD 2L OFF WITH DIALYSIS TODAY. SHE CONTINUES WITH RECTAL TUBE IN PLACE WITH ~300ML OF LIQUID BROWN. SHE WAS NOTED TO HAVE GELATINOUS RETURN WHEN TURNED AND REPOSITIONED AFTER BEING UP IN THE CHAIR THIS AM. SHE LIKED BEING ABLE TO GET OUT OF BED AND WANTED TO DO IT AGAIN, ALTHOUGH AFTER DIALYSIS SHE WAS MEDICATED FOR PAIN AND HAS BEEN RESTING QUIETLY.
--- NOTE | 2021-11-23 21:06 | NUR ---
ASSUMPTION OF CARE: ASSUMED CARE OF AT 1900. PT IS CURRENTLY LYING IN BED IS ALERT AND ORIENTED 3-4. PT IS ABLE TO STATE ACCURATE MONTH AND YEAR BUT IS UNKNOWN ON EXACT DAY. PT IS PLEASANT BUT COMPLAINS OF DRY MOUTH, SORE TONGUE, AND PAIN IN HER BACK/NECK; MEDICATED WITH 1 MG DILAUDID PER EMAR. PT IS CURRENTLY ON AN OXYMIZER @ 6LPM; RR 16-18 AND O2 LEVELS MAINTAINING 92<. PT BECOMES MORE SHORT OF BREATH WHEN TALKING AND O2 LEVELS DROP OF 89< BUT SHE RECOVERS QUICKLY. PT ON CONTINUOUS TEXTILE SCREEN MAKER WITH HR IN THE 90'S, SBP 90'S, AND MAP 60-63 WILL MONITOR BP CLOSELY. PT HAS NO C/O PF CHEST PAIN AT THIS TIME. PPP X 4 AND EXTREMITIES ARE WARM, BUT FEET AND HANDS ARE COOL TO TOUCH; CAP REFIL REMAINS < 3 SECONDS. HYPOACTIVE BS IN ALL FOUR QUADRANTS WITH A SOFT, ROUND ABD. PT ON NECTAR THICK DIET AT THIS TIME AND IS TOLERATING WELL. PT GIVEN NECTAR THICK WATER AND APPLESAUCE WITH MEDS TONIGHT. MOUTH MOISTURIZER APPLIED TO MOUTH D/T PT C/O DRY MOUTH. PT HAS PAIN IN HER KNEE WHEN ATTEMPTING TO REPOSITION. PT HAS A PERMACATH IN THE RSC THAT IS INTACT, AND A PICC LINE IN THE FAITH THAT FLUSHES AND DRAWS BACK EASILY. CALL LIGHT IN REACH, WILL CONTINUE TO MONITOR THROUGHOUT THE NIGHT.
--- NOTE | 2021-11-24 06:44 | NUR ---
SHIFT SUMMARY: NO ACUTE CHANGES THIS SHIFT. PT REMAINS ON OXYMIZER @ 6LPM AND RR 16-20, OR LEVELS MAINTAINING 16-20. HR IN THE 90'S WITH SBP 100'S AND MAP 70<. PT HAD NUMEROUS C/O PAIN IN BACK/NECK; MEDICATED PER EMAR. PT AGGREED TO REPOSITIONING A FEW TIMES THIS SHIFT AND AN ASSESSMENT OF BACK COMPLETED. BACKSIDE IS LOOKING OKAY; AREA AROUND RECTAL TUBE REDDENED AND BARRIER CREAM APPLIED. WILL CONTINUE TO MONITOR UNTIL ONCOMING RN ARRIVES.
[2021-11-24 06:48] LABS: Hematocrit 22.4 % (33.0-51.0); Hemoglobin 7.1 g/dL (11.5-16.0); Mean Corpuscular HGB 27.1 pg (26.0-34.0); Mean Corpuscular HGB Conc 31.7 g/dL (31.5-36.5); Mean Corpuscular Volume 86 fL (80-100); Mean Platelet Volume 12.7 fL (9.1-12.4); Platelet Count 191 K/mm3 (150-400); RDW Coefficient Variation 16.7 % (11.7-14.2); RDW Standard Deviation 50.2 fL (35.1-46.3); Red Blood Cell Count 2.62 M/mm3 (3.80-5.20); White Blood Cell Count 15.87 K/mm3 (4.00-11.30)
[2021-11-24 07:01] LABS: Albumin, Blood 1.4 g/dL (3.4-5.0); Albumin/Globulin Ratio 0.4 (0.8-1.8); Bilirubin, Total 0.5 mg/dL (0.1-1.0); Bun/Creatinine Ratio 25.4 (12.0-20.0); Calcium, Blood 8.4 mg/dL (8.5-10.1); Creatinine, Blood 2.24 mg/dL (0.40-1.00); Globulin, Blood 3.4 g/dL (2.2-4.0); Potassium, Blood 5.2 mmol/L (3.5-5.5); Total Protein, Blood 4.8 g/dL (6.4-8.2)
[2021-11-24 07:08] LABS: BAND PERCENT MAN 8 % (0-8); BASOPHILS PERCENT MAN 0 % (0-2); EOSINOPHILS ABSOLUTE MAN 0.31 K/mm3 (0.00-0.68); EOSINOPHILS PERCENT MAN 2 % (0-6); MONOCYTES ABSOLUTE MAN 0.63 K/mm3 (0.16-1.47); MONOCYTES PERCENT MAN 4 % (4-13); MYELOCYTE ABSOLUTE MAN 0.79 K/mm3 (0.00-0.00); MYELOCYTE PERCENT MAN 5 % (0-0); PROMYELOCYTE ABSOLUTE MAN 0.31 K/mm3 (0.00-0.00); PROMYELOCYTE PERCENT MAN 2 % (0-0); SEG NEUTROPHILS PERCENT MAN 79 % (41-73); TOTAL CELLS COUNTED 100
--- NOTE | 2021-11-24 07:19 | NUR ---
Received report from Rabia VALERIO. Patient awake in bed and asking for water. She is allowed thickened liquids and made clear plan and have redirected so she is not asking and calling out. She is alert and oriented X3 and is able to communicate her needs. She is on oximizer at 6 L O2 and sats low 90%'s. She jhas PICC line to FAITH, dressing intact and site WNL's and is infusing CPN at 53 ml/hr. She has 16Fr temp chávez draining scant amounts of minna colored urine and temp of 100.2.. She has Perma cath to RU chest and is daily dialysis. She also has rectal tube in place with liquid brown stool. POLO but weak. Talked with Dr Hernandez and wants to [facility]sa cardiology consult.
--- NOTE | 2021-11-24 08:49 | NUR ---
Received report from medical RN. Patient transferred to ICU 6 via medical bed and 4 point tuff cuffs. He is alert to self and place and is able to communicate his needs. He is aclm on arrival and VS done. He stated that placing iv if needed would be ok. We removed LE tuff cuffs. and remains in UE Tuff cuffs. He opened scab on left hand and placed gauze and coban on site. Room mitigation done and sitter at doorway. Patient has been advised that he is still on 2 MD hold an d discussed rights removed.
--- NOTE | 2021-11-24 10:27 | NUR ---
Patient tolerated am meds with apple sauce and no sign of aspiration, allowed breathing time. She gulps and pulls air into stomach when swallowing. Repositioned for comfort. Dialysis at noon and swallow eval shortly, speech at bedside. PT was here working with patient. She continues to ask for liquids and we have been giving every thirty minutes
--- NOTE | 2021-11-24 12:30 | NUR ---
Patient awake in bed with c/o intermintent dtspnea and have called for heaven chiu from RT. She has been up in chair as the bed was bothering her. Systolics >100 and MAPs >65 Awaiting Dialysis. CPN continues at 53 ml/hr. Scant amounts of minna urine prior to dialysis. Family at bedside. Dr Hernandez came by and spoke with family in room and on phone to give update.
[2021-11-24 15:03] LABS: Vancomycin, Random 24.4 ug/mL
--- NOTE | 2021-11-24 15:30 | NUR ---
patient continues ot ask for water every 10 minutes and have reminded her that only every 30 minutes and have explained to family as well. Dialysis started at 1415 and patient tolerating well. placed back in bed from chair for dialysis and patient already staes hurts from head to toes during treatment, mwedicated for pain. CPN continues to infuse at 53 ml/hr. Patient states wants water regardless of what treatment needs to be changed.
[2021-11-24 16:24] LABS: Hematocrit 29.2 % (33.0-51.0); Hemoglobin 8.9 g/dL (11.5-16.0); Mean Corpuscular HGB 25.7 pg (26.0-34.0); Mean Corpuscular HGB Conc 30.5 g/dL (31.5-36.5); Mean Corpuscular Volume 84 fL (80-100); Mean Platelet Volume 12.6 fL (9.1-12.4); Platelet Count 312 K/mm3 (150-400); RDW Coefficient Variation 17.2 % (11.7-14.2); RDW Standard Deviation 50.4 fL (35.1-46.3); Red Blood Cell Count 3.46 M/mm3 (3.80-5.20); White Blood Cell Count 22.87 K/mm3 (4.00-11.30)
--- NOTE | 2021-11-24 18:00 | NUR ---
patient placed back in chair for comfort. Started new bag CPN amd merepenem. gave thickened water per schedule. 100 urine out in chávez and temp down to 98.4. She had 200 ml of liquid brown stool out this shift. She is finally rest since back in chair for first time today. Dialysis done and pulled 3 liters of fluid. CBG 110 and no coverage needed.
[2021-11-24 19:02] LABS: BAND PERCENT MAN 28 % (0-8); BASOPHILS PERCENT MAN 0 % (0-2); EOSINOPHILS PERCENT MAN 0 % (0-6); LYMPHOCYTES ABSOLUTE MAN 0.22 K/mm3 (0.84-5.20); LYMPHOCYTES PERCENT MAN 1 % (21-46); MONOCYTES ABSOLUTE MAN 0.91 K/mm3 (0.16-1.47); MONOCYTES PERCENT MAN 4 % (4-13); MYELOCYTE ABSOLUTE MAN 0.68 K/mm3 (0.00-0.00); MYELOCYTE PERCENT MAN 3 % (0-0); NEUTROPHILS ABSOLUTE MAN 21.04 K/mm3 (1.96-9.15); SEG NEUTROPHILS PERCENT MAN 64 % (41-73); TOTAL CELLS COUNTED 100
--- NOTE | 2021-11-24 20:55 | NUR ---
ASSUMED CARE: PT RESTING QUIETLY IN CHAIR WITH 6L OXYMIZER AT THIS TIME.
[2021-11-25 04:03] LABS: Hematocrit 24.1 % (33.0-51.0); Hemoglobin 7.5 g/dL (11.5-16.0); Mean Corpuscular HGB 25.8 pg (26.0-34.0); Mean Corpuscular HGB Conc 31.1 g/dL (31.5-36.5); Mean Corpuscular Volume 83 fL (80-100); Mean Platelet Volume 12.8 fL (9.1-12.4); Platelet Count 255 K/mm3 (150-400); RDW Coefficient Variation 16.9 % (11.7-14.2); RDW Standard Deviation 49.1 fL (35.1-46.3); Red Blood Cell Count 2.91 M/mm3 (3.80-5.20); White Blood Cell Count 15.56 K/mm3 (4.00-11.30)
[2021-11-25 04:17] LABS: Albumin, Blood 1.6 g/dL (3.4-5.0); Albumin/Globulin Ratio 0.4 (0.8-1.8); Bilirubin, Total 0.5 mg/dL (0.1-1.0); Bun/Creatinine Ratio 26.2 (12.0-20.0); Calcium, Blood 8.8 mg/dL (8.5-10.1); Creatinine, Blood 2.71 mg/dL (0.40-1.00); Globulin, Blood 4.1 g/dL (2.2-4.0); Potassium, Blood 4.3 mmol/L (3.5-5.5); Total Protein, Blood 5.7 g/dL (6.4-8.2)
[2021-11-25 04:39] LABS: BAND PERCENT MAN 17 % (0-8); BASOPHILS PERCENT MAN 0 % (0-2); EOSINOPHILS PERCENT MAN 0 % (0-6); LYMPHOCYTES ABSOLUTE MAN 0.15 K/mm3 (0.84-5.20); LYMPHOCYTES PERCENT MAN 1 % (21-46); METAMYELOCYTE ABSOLUTE MAN 0.93 K/mm3 (0.00-0.00); METAMYELOCYTE PERCENT MAN 6 % (0-0); MONOCYTES ABSOLUTE MAN 1.24 K/mm3 (0.16-1.47); MONOCYTES PERCENT MAN 8 % (4-13); MYELOCYTE ABSOLUTE MAN 0.31 K/mm3 (0.00-0.00); MYELOCYTE PERCENT MAN 2 % (0-0); NEUTROPHILS ABSOLUTE MAN 12.91 K/mm3 (1.96-9.15); SEG NEUTROPHILS PERCENT MAN 66 % (41-73); TOTAL CELLS COUNTED 100
--- NOTE | 2021-11-25 05:53 | NUR ---
SHIFT SUMMARY: PT EXPERIENCED INCREASED WORK OF BREATHING THROUGHOUT NIGHT. NOW IN 8L OXYMIZER. DILAUDID GIVEN TWICE FOR CHRONIC BACK PAIN. PT IN BED IN CHAIR POSITION. COLACE DC'D AND BANANA FLAKES STARTED DUE TO LOOSE STOOL IN RECTAL TUBE. CPN INFUSING AT 53ML/HR. T MAX 99.6. PT NEARLY CONSTANTLY REQUESTING WATER. THICKENED WATER GIVEN WELL AT BIOTENE MOUTH SPRAY.
--- NOTE | 2021-11-25 07:54 | NUR ---
Received report from Noc RN. Patient awake in bed and with increased effort of breathing. She is on 7L O2 via oximizer and sats 90%'s. We have again addressed increased water requests and will get water only every 30 minutes. Repositioned to assist with breathing. BP's still slightly soft in the 90's. She is clear and answers questions but all revolve around what she will do to get a drink of water. She has 16Fr temp chávez draining scant amounts of tea colored urine/ r/t dialysis. She also has rectal tube in place and will take pics of some skin breakdown around rectal area.
--- NOTE | 2021-11-25 09:30 | NUR ---
Patient awake and asking for water and redirected her to plan. She tolerated meds with apple sauce and banatrol in thickened liquid. Changed linen and gave Chlorhexadine bath. Dr Hernandes has been into assess and gave son update. She has qabout 250 ml out when bathing from rectal tube. Pictures taken of reddened area on rectal area. CPN continues to infuse in PICC line at 53 ml/hr. She remains on 6L O2 via oximiser and sats >90%.
--- NOTE | 2021-11-25 11:41 | NUR ---
Patient states still feels SOB and has recieved Duo Neb, sats 100%. VSS. Patient has ongoing drinking needs. Family at bedside. She remains on 7L O2 via Oximizer. Medicated for back with new order for [place] and is tolerating well.
--- NOTE | 2021-11-25 13:40 | NUR ---
Patient continues to stay awake and has not really rested much today. She remains on 7L O2 vis oximizer and sats upper 90%'s. Continues with water demands and reinforce 30 minutes time line. She is also asking for pain meds early. PICC line continues to infuse CPN at 53 ml/hr. Called Dr Hernandez and had CBG dc'd as thay have low for several days and not alot of intake. Systolics remains 90-100's and MAP's >65.
--- NOTE | 2021-11-25 15:30 | NUR ---
Patient continues on 7L O2 via oximizer and sats upper 90%'s. She continues to breath 20-25 BPM and constantly wanting fluids. Working with her breathing while taking fluids. She has refused meals today and only wants water. Medicated for pain per APR. Systolic 90-100's and HR low 100's. Sister came back and sat with her for a little bit and i gave son update when called. Still very scant amout of urine and moderate amout of liquid brown stool . She has been taking med with either thickened water or apple sauce.
--- NOTE | 2021-11-25 15:39 | NUR ---
Brief supportive visit. Pt resting in bed and appears significantly dyspneic. Brief review on plan of care with Pt. Offered active listening and validated concerns. Pt agreeable for this RN to F/U with continued visits. Palliative Care will ramain available for supportive and therapeutic visits.
--- NOTE | 2021-11-25 19:51 | NUR ---
ASSUMED CARE. AOX3. STATES PAIN 4/10 IN BACK AND LEGS. LS CRACKLES ON THE LEFT, OCCATIONAL COUGH. REPLACED OXIMIZER WITH NASAL CANNULA AT 4 LITERS SATS NOW 92-93%. BREATHING TX JUST FINISHED. SINUS ARRYTHMIA RATE IN THE 80'S. BP WNL. ABD SOFT, RECTAL TUBE IN PLACE WITH LIQUID LIGHT BROWN. GAVE THICKEN WATER, PATIENT TENDS TO TILT HEAD BACK TO SWALLOW, COUGHING NOTED AFTERWARDS, EDUCATED ON CHIN TILT. JAIMES WITH DARK YELLOW URINE. REPOSITIONED, BOTTOM RED NO OPEN AREAS. RESP RATE IN THE 20'S. CALL LIGHT IN REACH. WILL MONITOR.
--- NOTE | 2021-11-25 21:09 | NUR ---
WHILE DOING ORAL CARE, NOTICED WHITE PATCHES ON BACK OF TONGUE AND THROAT, WHEN WIPING THEM CLEAN, SHE C/O OF BURNING AND PAIN. TONGUE IS ALSO SWOLLEN. CALLED DR. GRANT AND GOT ORDER FOR NYSTATIN SWISH AND SPIT.
--- NOTE | 2021-11-26 03:26 | NUR ---
SISTERS OLEG AND SEBASTIAN BOTH HAVE BEEN UPDATED ON STATUS OF PATIENT TONIGHT WHEN THEY CALLED IN.
--- NOTE | 2021-11-26 04:55 | NUR ---
PT UNABLE TO SLEEP TONIGHT, PRN TRAZADONE ORDERED AND GIVEN, UNAFFECTIVE. VSS. PT REMAINS ON 4-5L NC. PT WITH CHRONIC PAIN, PRN MEDS GIVEN PER ORDER. REPOSITIONING Q2 HRS AND PRN.
[2021-11-26 05:02] LABS: Hematocrit 20.2 % (33.0-51.0); Hemoglobin 6.6 g/dL (11.5-16.0); Mean Corpuscular HGB 28.2 pg (26.0-34.0); Mean Corpuscular HGB Conc 32.7 g/dL (31.5-36.5); Mean Corpuscular Volume 86 fL (80-100); Mean Platelet Volume 12.8 fL (9.1-12.4); Platelet Count 212 K/mm3 (150-400); RDW Coefficient Variation 17.5 % (11.7-14.2); RDW Standard Deviation 53.9 fL (35.1-46.3); Red Blood Cell Count 2.34 M/mm3 (3.80-5.20); White Blood Cell Count 13.33 K/mm3 (4.00-11.30)
[2021-11-26 05:40] LABS: BAND PERCENT MAN 46 % (0-8); BASOPHILS PERCENT MAN 0 % (0-2); EOSINOPHILS ABSOLUTE MAN 0.13 K/mm3 (0.00-0.68); EOSINOPHILS PERCENT MAN 1 % (0-6); LYMPHOCYTES ABSOLUTE MAN 0.39 K/mm3 (0.84-5.20); LYMPHOCYTES PERCENT MAN 3 % (21-46); METAMYELOCYTE ABSOLUTE MAN 0.53 K/mm3 (0.00-0.00); METAMYELOCYTE PERCENT MAN 4 % (0-0); MONOCYTES ABSOLUTE MAN 0.66 K/mm3 (0.16-1.47); MONOCYTES PERCENT MAN 5 % (4-13); MYELOCYTE ABSOLUTE MAN 0.39 K/mm3 (0.00-0.00); MYELOCYTE PERCENT MAN 3 % (0-0); NEUTROPHILS ABSOLUTE MAN 11.19 K/mm3 (1.96-9.15); SEG NEUTROPHILS PERCENT MAN 38 % (41-73); TOTAL CELLS COUNTED 100
[2021-11-26 06:42] LABS: Hematocrit 21.4 % (33.0-51.0); Hemoglobin 6.5 g/dL (11.5-16.0); Mean Corpuscular HGB 25.1 pg (26.0-34.0); Mean Corpuscular HGB Conc 30.4 g/dL (31.5-36.5); Mean Corpuscular Volume 83 fL (80-100); Mean Platelet Volume 12.4 fL (9.1-12.4); Platelet Count 225 K/mm3 (150-400); RDW Coefficient Variation 16.9 % (11.7-14.2); RDW Standard Deviation 49.9 fL (35.1-46.3); Red Blood Cell Count 2.59 M/mm3 (3.80-5.20); White Blood Cell Count 14.53 K/mm3 (4.00-11.30)
[2021-11-26 07:01] LABS: Bun/Creatinine Ratio 30.6 (12.0-20.0); Calcium, Blood 8.8 mg/dL (8.5-10.1); Creatinine, Blood 3.5 mg/dL (0.40-1.00); Potassium, Blood 5.1 mmol/L (3.5-5.5)
--- NOTE | 2021-11-26 07:15 | NUR ---
ASSUMED CARE OF PT AT 0700 PT AWAKE AND SLIGHTLY DISORIENTED. REPORT FROM HAT BRIM CURLER, PT DID NOT REST ALL NIGHT. 5L NC AT THIS TIME WITH SATS >93%. BP 100'S/50'S, HR 90'S. JAIMES CATH DRAINING TO GRAVITY, RECTAL TUBE DRAINING TO GRAVITY. CPN AT 53 MLS/HR AT GOAL RATE. BLOOD PRODUCTS ORDERED AND WAITING FOR TYPE AND SCREEN RESULTS. SEE ASSESSMENT FOR MORE INFORMATION.
[2021-11-26 07:56] LABS: BAND PERCENT MAN 34 % (0-8); BASOPHILS PERCENT MAN 0 % (0-2); EOSINOPHILS ABSOLUTE MAN 0.29 K/mm3 (0.00-0.68); EOSINOPHILS PERCENT MAN 2 % (0-6); LYMPHOCYTES ABSOLUTE MAN 0.58 K/mm3 (0.84-5.20); LYMPHOCYTES PERCENT MAN 4 % (21-46); METAMYELOCYTE ABSOLUTE MAN 0.43 K/mm3 (0.00-0.00); METAMYELOCYTE PERCENT MAN 3 % (0-0); MONOCYTES ABSOLUTE MAN 1.16 K/mm3 (0.16-1.47); MONOCYTES PERCENT MAN 8 % (4-13); MYELOCYTE ABSOLUTE MAN 0.43 K/mm3 (0.00-0.00); MYELOCYTE PERCENT MAN 3 % (0-0); NEUTROPHILS ABSOLUTE MAN 11.62 K/mm3 (1.96-9.15); SEG NEUTROPHILS PERCENT MAN 46 % (41-73); TOTAL CELLS COUNTED 100
--- NOTE | 2021-11-26 10:41 | NUR ---
Pt resting in bed and receiving dialysis. Pt appears significantly dyspneic. Reviewed plan of care with Pt. Gentle discussion regarding code status and wishes for CPR. Educated on life sustaining treatment including risk factors and implications of CPR. Pt reports her wishes are to remain a full code. Pt does appear to have poor insight and reports not understanding why she can't have PO intake. Re enforced education on risks and consequences of PO intake at this time. Palliative Care will remain available.
[2021-11-26 11:15] LABS: Thyroxine (T4) 3.8 ug/dL (4.8-13.9)
[2021-11-26 11:17] LABS: Thyroid Stimulating Hormone 9.01 uIU/mL (0.360-4.800)
[2021-11-26 13:54] LABS: Hematocrit 23.9 % (33.0-51.0); Hemoglobin 7.8 g/dL (11.5-16.0)
--- NOTE | 2021-11-26 14:00 | NUR ---
PT DAUGHTER IN ROOM WITH PT. EXPRESSION OF CONCERN WITH TREATMENT OF BIPAP AND IF VENT WOULD BE IN PT BEST INTEREST. TALKED TO PT SISTER KATHERIN ABOUT DPOA AND POSSIBLE DNR STATUS. PER PT WISHES IS FULL CODE STATUS. PT FAMILY BEING UPDATED TO PT WANTS VERSUS CHANGE OF STATUS WHILE PT IS CONGNICENT O DECISION MAKING.
[2021-11-26 16:23] LABS: Hemoglobin 7.5 g/dL (11.5-16.0)
--- NOTE | 2021-11-26 17:22 | NUR ---
END OF SHIFT SUMMARY PT A/O X2-3 THROUGHOUT THE DAY. LUNG SOUNDS CLEAR BILATERALLY THROUGHOUT WITH DIMINISHED BASES. PT UNABLE TO TOLERATE BEING OFF OF BIPAP FOR ANY AMOUNT OF TIME. SATS DECLINE TO 70'S. O2 SAT PROBE IS VERY DIFFICULT TO GET PROPER READING NO MATTER WHERE IT IS PLACED. CURRENT TEMPORAL PROBE IN PLACE WITH 100% SATS ON BIPAP. BP HYPOTENSIVE DURING DIALYSIS THIS AM. BP 105/44 AT THIS TIME WITH LOVOPHED AT 10MCG/KG/MIN. MAP OF 62. HR 70'S, SINUS RHYTHM. STOOL 300MLS THIN LIQUID STOOL OUT. 75 MLS URINE TO JAIMES CATH, YELOW URINE WITH SEDIMENT APPARENT. TPN AT 53 MLS/HR GOAL RATE. WILL CONTINUE TO MONITOR UNTIL SHIFT REPORT GIVEN TO SIGN BUILDER.
[2021-11-26 20:35] LABS: C DIFFICILE DNA NEGATIVE (Negative)
--- NOTE | 2021-11-26 21:03 | NUR ---
ASSUMED CARE: PATIENT ALERT AND ORIENTED TO SELF AND PLACE, ABLE TO FOLLOW COMMANDS. LAYING IN BED ON LEFT SIDE WITH HOB 30 DEG. PATIENT CURRENTLY ON BIPAP 11/21 @40% FIO2 AND TOLERATING WELL. ASSESSMENT AND ORAL CARE ADMINISTERRED AT START OF SHIFT. HEMODYNAMICALLY STABLE WITH LEVO AT 10. CPN AT TARGET 53ML/HR. RECTAL TUBE TO GRAVITY WITH BROWN STOOL. JAIMES IN PLACE TO GRAVITY DRAINING SCANT DARK YELLOW URINE.
[2021-11-27 03:26] LABS: Hematocrit 22.5 % (33.0-51.0); Hemoglobin 7.4 g/dL (11.5-16.0); Mean Corpuscular HGB 27.2 pg (26.0-34.0); Mean Corpuscular HGB Conc 32.9 g/dL (31.5-36.5); Mean Corpuscular Volume 83 fL (80-100); Mean Platelet Volume 12.2 fL (9.1-12.4); NRBC ABSOLUTE 0.02 K/mm3 (0.00-0.02); NRBC Auto 0.1 /100 WBC (0.0-0.2); Platelet Count 214 K/mm3 (150-400); RDW Coefficient Variation 16.5 % (11.7-14.2); RDW Standard Deviation 48.5 fL (35.1-46.3); Red Blood Cell Count 2.72 M/mm3 (3.80-5.20); White Blood Cell Count 19.04 K/mm3 (4.00-11.30)
[2021-11-27 03:45] LABS: Alanine Aminotransfer (ALT/SGP 38 U/L (12-78); Albumin, Blood 1.9 g/dL (3.4-5.0); Albumin/Globulin Ratio 0.5 (0.8-1.8); Alk Phos 114 U/L (50-136); Anion Gap 9 mmol/L (6-16); Aspartate Aminotrans (AST/SGOT 35 U/L (12-37); Bilirubin, Total 0.6 mg/dL (0.1-1.0); Blood Urea Nitrogen 135 mg/dL (8-24); CO2, Blood 25 mmol/L (21-32); Calcium, Blood 9.5 mg/dL (8.5-10.1); Chloride, Blood 97 mmol/L (98-108); Creatinine, Blood 3.75 mg/dL (0.40-1.00); Glomerular Filtration Rate 12 (60-); Glucose, Blood 115 mg/dL (70-99); Potassium, Blood 5.8 mmol/L (3.5-5.5); Sodium, Blood 131 mmol/L (136-145); Total Protein, Blood 5.9 g/dL (6.4-8.2); Triglycerides 93 mg/dL (30-160)
--- NOTE | 2021-11-27 05:34 | NUR ---
SHIFT SUMMARY: A/OX2, UNABLE TO RECALL DATE/TIME. PATIENT REMAINED HEMODYNAMICALLY STABLE ON LEVOPHED TITRATED FROM 10-14 OVER THE COURSE OF SHIFT. CURRENTLY ON BIPAP 10/8 FIO2 40%. ATTEMPTED TO WEAN O2 TO 30% UNSUCCESSFULLY. CPN AT GOAL 53ML/HR, UOP 350 AND APPROX 100ML OF STOOL OUTPUT. PATIENT RESTED MOST OF THE NIGHT. CONTROLLED PAIN WITH IV FENTANYL PATIENT IS NPO FOR ASPIRATION RISK. MAINTAINED HOB 30 DEGREES AND TURNED PATIENT Q2H TO MITIGATED WORSENING OF REDDENED AREA ON SACRUM. UPDATED FAMILY OVER NIGHT.
[2021-11-27 05:42] LABS: BAND PERCENT MAN 45 % (0-8); BASOPHILS PERCENT MAN 0 % (0-2); EOSINOPHILS PERCENT MAN 0 % (0-6); LYMPHOCYTES ABSOLUTE MAN 0.38 K/mm3 (0.84-5.20); LYMPHOCYTES PERCENT MAN 2 % (21-46); METAMYELOCYTE ABSOLUTE MAN 0.95 K/mm3 (0.00-0.00); METAMYELOCYTE PERCENT MAN 5 % (0-0); MONOCYTES ABSOLUTE MAN 0.38 K/mm3 (0.16-1.47); MONOCYTES PERCENT MAN 2 % (4-13); MYELOCYTE ABSOLUTE MAN 1.14 K/mm3 (0.00-0.00); MYELOCYTE PERCENT MAN 6 % (0-0); NEUTROPHILS ABSOLUTE MAN 16.18 K/mm3 (1.96-9.15); SEG NEUTROPHILS PERCENT MAN 40 % (41-73); TOTAL CELLS COUNTED 100
--- NOTE | 2021-11-27 07:47 | NUR ---
AM NOTE... ASSUMED CARE OF PT AT 0700, THE PT WAKES TO VERBAL STIMULI, SHE IS ABLE TO NOD HER HEAD TO SIMPLE QUESTIONS AND FOLLOW SIMPLE DIRECTIONS BUT SPEECH IS GARBLED. THE PT IS ON BIPAP AT 10/8 AND 35% WITH O2 SATS >95% L/S COARSE WITH WHEEZES T/O AND DIM IN THE BASES. RR IS IN THE HIGH 20'S LOW 30'S. THE PT IS IN SINUS TACH IN THE LOW 100'S. SHE IS ON LEVOPHED GTT RUNNING AT 12MCG TO KEEP MAPS >60 AT THIS TIME. SHE HAS 1+ EDEMA NOTED TO HER BUE AND 2+ TO HER BLE. BT ARE VERY HYPOACTIVE, ABD HAS MODERATE DISTENTION AND IS SLIGHTLY FIRM AND TENDER TO PALPATION. RECTAL TUBE IS IN PLACE AND DRAINING LIQUID BROWN STOOLS TO GRAVITY. TEMP JAIMES IN PLACE DRAINING TO GRAVITY, THE PT'S TEMP IS CURRENTLY 100.4. PLAN IS FOR DIALYSIS THIS AM. WILL CONTINUE TO MONITOR.
--- NOTE | 2021-11-27 09:42 | NUR ---
TO ICU 5 FOR HEMODIALYSIS TX ORDERED BY DR GOULD; DR CROWELL AT BEDSIDE. PT IS HAVING INCREASED DIFFICULTY WITH BREATHING, CONTINUES ON BIPAP WITH INCREASED 02 REQUIREMENTS. ABD IS MARKEDLY DISTENDED AND PERIPERHAL EXTREMITIES ARE VERY COLD TO TOUCH. PERFUSION IS MINIMAL, CAP REFILL OF 4-5 SECONDS. PT IS ON LEVOPHED @ 14 MCGS, PT IS HEADED TO CT FOR ABDOMINAL CT WITH CONTRAST AND CHEST CT W/O. DIALYSIS IS ON HOLD AT THIS TIME. MARC
--- NOTE | 2021-11-27 10:09 | NUR ---
PT UPDATE...899 DR. CROWELL AT THE BEDSIDE TO ASSESS THE PT. NEW ORDERS GIVEN FOR STAT CHEST AND ABD CT WITH CONTRAST D/T THE PT'S INCREASING FIRMNESS AND PAIN TO HER ABD AND CHANGE IN HER CONDTION. THE PT WAS NOT ABLE TO TOLERATE LAYING FLAT AND WAS GIVEN 50MCG IV FENTANYL THIS HELPED THE PT BE ABLE TO LAY FLAT BUT HER O2 SATS DROPPED DOWN TO THE LOW 80'S RT IN THE ROOM INCREASED THE FIO2 FROM 30% TO 50% AFTER THE PT RECOVERED ON 100% FIO2. PT WENT TO CT AND RETURNED TO THE ROOM WITHOUT INCIDENT. LEVOPHED HAS BEEN TITRATED FROM 10MCG TO 12MCG TO KEEP MAPS >60. WILL CONTINUE TO MONITOR.
--- NOTE | 2021-11-27 15:05 | NUR ---
post hemo note: pt continues on bipap @ 35% FI02. pt had ng tube placed prior to dialysis which is draining large amts of coffee ground colored fluid. bp's fairly stable on pressors with occ increase in titration. unable to start tx as scheduled due to interventions and request of intensiveist to hold until ct results read and Dr Nogueira updated with current status. tariq
--- NOTE | 2021-11-27 15:32 | NUR ---
PT UPDATE.... AN NG TUBE WAS PLACED PER DR. CROWELL, XRAY AND AUSCULTATION WERE USED TO VERIFY PLACEMENT. THE NG TUBE WAS PLACED TO LIS AND VERY DARK BROWN/BLACK GASTRIC CONTENTS WERE REMOVED. THE PT'S ABD DISTENTION STARTED TO DECREASE AND THE PT'S ABD PAIN IMPROVED SLIGHTLY. THE PT HAD DIALYSIS WITH NO FLUIDS REMOVED. LEVOPHED HAS BEEN TITRATED UP TO 18MCG WITH VASOPRESSIN ADDED DURING DIALYSIS TO KEEP MAPS >60. VENOUS DOPPLER WAS DONE TO THE BLE TO HELP R/O POSSIBLE P.E. WILL CONTINUE TO MONITOR.
--- NOTE | 2021-11-27 18:12 | NUR ---
SHIFT SUMMARY.... NO ACUTE NEGATIVE CHANGES NOTED SINCE PREVIOUS ASSESSMENT. THE PT WAS TAKEN OFF OF BIPAP AT 10/8 AND 30% AND CHANGED TO AIRVO AT 45L AND 35% WITH O2 SATS >88% AND TOLERATING THIS WELL. L/S HAVE IMPROVED T/O THIS SHIFT THEY ARE NOW DIM WITH SLIGHT COARSNESS T/O. THE PT'S NG TUBE DRAINED 750MLS OF VERY DARK BROWN/BLACK GASTRIC CONTENT TO LIS. THE PT'S ABD PAIN HAS IMPROVED WELL THE PT'S ABD DISTENTION AND FIRMNESS. THE PT'S RECTAL TUBE HAS NOT HAD ANY OUTPUT THIS SHIFT. THE PT'S JAIMES DRAINED 300MLS OF CLEAR DARK YELLOW URINE TO GRAVITY. THE PT IS MORE ALERT AND AWAKE THIS EVENING RR IS IN THE 20'S. CALL LIGHT IN REACH WILL CONTINUE TO MONITOR UNTIL REPORT IS GIVEN TO ONCOMING RN.
[2021-11-28 04:26] LABS: Hematocrit 19.1 % (33.0-51.0); Hemoglobin 6.2 g/dL (11.5-16.0); Mean Corpuscular HGB 27.2 pg (26.0-34.0); Mean Corpuscular HGB Conc 32.5 g/dL (31.5-36.5); Mean Corpuscular Volume 84 fL (80-100); Mean Platelet Volume 11.8 fL (9.1-12.4); Platelet Count 169 K/mm3 (150-400); RDW Coefficient Variation 17.1 % (11.7-14.2); RDW Standard Deviation 51.9 fL (35.1-46.3); Red Blood Cell Count 2.28 M/mm3 (3.80-5.20); White Blood Cell Count 16.44 K/mm3 (4.00-11.30)
[2021-11-28 04:51] LABS: Albumin, Blood 1.6 g/dL (3.4-5.0); Albumin/Globulin Ratio 0.5 (0.8-1.8); Bilirubin, Total 0.7 mg/dL (0.1-1.0); Bun/Creatinine Ratio 34.3 (12.0-20.0); Calcium, Blood 8.5 mg/dL (8.5-10.1); Creatinine, Blood 2.33 mg/dL (0.40-1.00); Globulin, Blood 3.5 g/dL (2.2-4.0); Potassium, Blood 4.5 mmol/L (3.5-5.5); Total Protein, Blood 5.1 g/dL (6.4-8.2)
[2021-11-28 05:51] LABS: BAND PERCENT MAN 6 % (0-8); BASOPHILS PERCENT MAN 0 % (0-2); EOSINOPHILS PERCENT MAN 0 % (0-6); LYMPHOCYTES % ATYPICAL MANUAL 1 % (0-0); LYMPHOCYTES ABSOLUTE MAN 0.65 K/mm3 (0.84-5.20); LYMPHOCYTES PERCENT MAN 3 % (21-46); METAMYELOCYTE ABSOLUTE MAN 0.16 K/mm3 (0.00-0.00); METAMYELOCYTE PERCENT MAN 1 % (0-0); MONOCYTES ABSOLUTE MAN 0.49 K/mm3 (0.16-1.47); MONOCYTES PERCENT MAN 3 % (4-13); MYELOCYTE ABSOLUTE MAN 0.98 K/mm3 (0.00-0.00); MYELOCYTE PERCENT MAN 6 % (0-0); NEUTROPHILS ABSOLUTE MAN 13.97 K/mm3 (1.96-9.15); PROMYELOCYTE ABSOLUTE MAN 0.16 K/mm3 (0.00-0.00); PROMYELOCYTE PERCENT MAN 1 % (0-0); SEG NEUTROPHILS PERCENT MAN 79 % (41-73); TOTAL CELLS COUNTED 100
--- NOTE | 2021-11-28 07:17 | NUR ---
ASSUMED CARE OF PT AT 0700 PT AWAKE AND QUIET. REQUESTING WATER. BP AND HR WNL. LEVO AT 10 MCG/KG/MIN, VASOPRESSIN ON STANDBY. HIGH FLOW O2 AT 45L 35%, JAIMES CATH PATENT AND DRAINING TO GRAVITY. RECTAL TUBE IN PLACE WITH REPORT OF NO OUTPUT OVER WELL LOGGING CAPTAIN. SEE ASSESSMENT FOR MORE INFORMATION.
--- NOTE | 2021-11-28 08:00 | NUR ---
DIALYSIS NURSE IN ROOM AT THIS TIME TO START TREATMENT TODAY.
[2021-11-28 09:25] LABS: Percent Saturation 8.5 % (15.0-50.0)
--- NOTE | 2021-11-28 10:11 | NUR ---
PRBC AT FINISH OF INFUSION DONE BY DIALYSIS WITHOUT ISSUES.
[2021-11-28 12:08] LABS: Vancomycin, Random 12.2 ug/mL
--- NOTE | 2021-11-28 13:00 | NUR ---
PT BATHED AND UP IN CHAIR AT THIS TIME. VITALS ARE STABLE, BP AND HR WNL. PT IS STILL PAINFUL BUT COMPLACENT.
[2021-11-28 14:27] LABS: Adenovirus F 40/41 Not Detected (NOT DETECT); Astrovirus Not Detected (NOT DETECT); Campylobacter Sp Not Detected (NOT DETECT); Cryptosporidium Not Detected (NOT DETECT); Cyclospora Cayetanensis Not Detected (NOT DETECT); E. Coli O157 Not Detected (NOT DETECT); Entamoeba Histolytica Not Detected (NOT DETECT); Enteroaggregative E. coli-EAEC Not Detected (NOT DETECT); Enteropathogenic E. coli-EPEC Not Detected (NOT DETECT); Enterotoxigenic E. coli-ETEC Not Detected (NOT DETECT); Giardia Lamblia Not Detected (NOT DETECT); Norovirus GI/GII Not Detected (NOT DETECT); Plesiomonas Shigelloides Not Detected (NOT DETECT); Rotavirus A Not Detected (NOT DETECT); Salmonella Sp Not Detected (NOT DETECT); Sapovirus Not Detected (NOT DETECT); Shiga Toxin-prod E. coli-STEC Not Detected (NOT DETECT); Shigella/Enteroin E. coli-EIEC Not Detected (NOT DETECT); Vibrio Cholerae Not Detected (NOT DETECT); Vibrio Sp Not Detected (NOT DETECT); Yersinia Enterocolitica Not Detected (NOT DETECT)
--- NOTE | 2021-11-28 18:26 | NUR ---
END OF SHIFT SUMMARY A/O X4. PT UP IN CHAIR AT 1200 TODAY. PT INDEPENDENT WITH ORAL CARE AND FOLLOWS COMMANDS. FAMILY IN ROOM TODAY HELPING WITH CHANGING POSITION OF PT AND COMFORT. LUNG SOUNDS CLEAR BILATERALLY WITH DIMINISHED BASES. O2 SATS >90 MOST OF THE DAY WITH INTERMITENT DESATING WITH POSITION CHANGES AND PT ACTIVITIES, TALKING WITH FAMILY, ETC. DESATS IN LOW 80'S AT TIMES WITH QUICK RECOVERY TIME. HIGH FLOW SET AT 45L 35%. LEVO AT 6 MCG/KG/MIN WITH STABLE BP AT 110'S/50'S. HR INCREASED WITHIN LAST HOUR TO 90'S-100'S. TEMP SPIKE TO 100.0, TYLENOL GIVEN. WILL CONTINUE TO MONITOR PT UNTIL SHIFT REPORT COMPLETE. GASTRO DR IN ROOM THIS AFTERNOON WITH REQUEST TO START PT/OT WHEN AVAILABLE.
[2021-11-29 03:59] LABS: Hemoglobin 7.2 g/dL (11.5-16.0); Mean Corpuscular HGB Conc 32.7 g/dL (31.5-36.5); Mean Corpuscular Volume 82 fL (80-100); Mean Platelet Volume 11.4 fL (9.1-12.4); Platelet Count 132 K/mm3 (150-400); RDW Coefficient Variation 17.8 % (11.7-14.2); RDW Standard Deviation 52.3 fL (35.1-46.3); RETICULOCYTE ABSOLUTE 0.0793 M/mm3 (0.0200-0.1100); RETICULOCYTE COUNT PERCENT 2.97 % (0.50-2.50); Red Blood Cell Count 2.67 M/mm3 (3.80-5.20); White Blood Cell Count 15.64 K/mm3 (4.00-11.30)
[2021-11-29 04:30] LABS: Albumin, Blood 1.5 g/dL (3.4-5.0); Albumin/Globulin Ratio 0.4 (0.8-1.8); BAND PERCENT MAN 28 % (0-8); BASOPHILS ABSOLUTE MAN 0.15 K/mm3 (0.00-0.23); BASOPHILS PERCENT MAN 1 % (0-2); Bilirubin, Total 0.6 mg/dL (0.1-1.0); Bun/Creatinine Ratio 30.2 (12.0-20.0); Calcium, Blood 8.8 mg/dL (8.5-10.1); Creatinine, Blood 1.69 mg/dL (0.40-1.00); EOSINOPHILS ABSOLUTE MAN 0.31 K/mm3 (0.00-0.68); EOSINOPHILS PERCENT MAN 2 % (0-6); LYMPHOCYTES ABSOLUTE MAN 0.31 K/mm3 (0.84-5.20); LYMPHOCYTES PERCENT MAN 2 % (21-46); METAMYELOCYTE ABSOLUTE MAN 0.31 K/mm3 (0.00-0.00); METAMYELOCYTE PERCENT MAN 2 % (0-0); MONOCYTES ABSOLUTE MAN 0.15 K/mm3 (0.16-1.47); MONOCYTES PERCENT MAN 1 % (4-13); MYELOCYTE ABSOLUTE MAN 0.62 K/mm3 (0.00-0.00); MYELOCYTE PERCENT MAN 4 % (0-0); PROMYELOCYTE ABSOLUTE MAN 0.15 K/mm3 (0.00-0.00); PROMYELOCYTE PERCENT MAN 1 % (0-0); Phosphorus, Blood 2.3 mg/dL (2.5-4.9); Potassium, Blood 4.1 mmol/L (3.5-5.5); SEG NEUTROPHILS PERCENT MAN 59 % (41-73); TOTAL CELLS COUNTED 100; Total Protein, Blood 5.5 g/dL (6.4-8.2)
--- NOTE | 2021-11-29 07:30 | NUR ---
TOOK OVER CARE OF PT AT 070, PT ON HFNC 45L/35% AND ON 8 OF LEVO
[2021-11-29 12:28] LABS: Vancomycin, Random 21.5 ug/mL
[2021-11-29 15:52] LABS: Hematocrit 22.5 % (33.0-51.0); Hemoglobin 7.3 g/dL (11.5-16.0)
[2021-11-30 04:17] LABS: Hematocrit 22.2 % (33.0-51.0); Hemoglobin 6.9 g/dL (11.5-16.0); Mean Corpuscular HGB 26.1 pg (26.0-34.0); Mean Corpuscular HGB Conc 31.1 g/dL (31.5-36.5); Mean Corpuscular Volume 84 fL (80-100); Platelet Count 100 K/mm3 (150-400); RDW Coefficient Variation 18.1 % (11.7-14.2); RDW Standard Deviation 54.2 fL (35.1-46.3); Red Blood Cell Count 2.64 M/mm3 (3.80-5.20); White Blood Cell Count 11.32 K/mm3 (4.00-11.30)
[2021-11-30 04:44] LABS: Albumin, Blood 1.4 g/dL (3.4-5.0); Albumin/Globulin Ratio 0.3 (0.8-1.8); Bilirubin, Total 0.6 mg/dL (0.1-1.0); Bun/Creatinine Ratio 29.4 (12.0-20.0); Creatinine, Blood 2.45 mg/dL (0.40-1.00); Globulin, Blood 4.1 g/dL (2.2-4.0); Potassium, Blood 4.3 mmol/L (3.5-5.5); Total Protein, Blood 5.5 g/dL (6.4-8.2)
[2021-11-30 05:48] LABS: BAND PERCENT MAN 51 % (0-8); BASOPHILS PERCENT MAN 0 % (0-2); EOSINOPHILS PERCENT MAN 0 % (0-6); LYMPHOCYTES ABSOLUTE MAN 0.33 K/mm3 (0.84-5.20); LYMPHOCYTES PERCENT MAN 3 % (21-46); METAMYELOCYTE ABSOLUTE MAN 0.11 K/mm3 (0.00-0.00); METAMYELOCYTE PERCENT MAN 1 % (0-0); MONOCYTES ABSOLUTE MAN 0.11 K/mm3 (0.16-1.47); MONOCYTES PERCENT MAN 1 % (4-13); MYELOCYTE ABSOLUTE MAN 0.33 K/mm3 (0.00-0.00); MYELOCYTE PERCENT MAN 3 % (0-0); NEUTROPHILS ABSOLUTE MAN 10.41 K/mm3 (1.96-9.15); SEG NEUTROPHILS PERCENT MAN 41 % (41-73); TOTAL CELLS COUNTED 100
--- NOTE | 2021-11-30 05:53 | NUR ---
END OF SHIFT SUMMARY INCREASED LEVOPHED UP TO 6 TO MAINTAIN MAP GREATER THAN 65 PT HR STARTED TO INCREASE UP TOWARDS 130'S. PT HGB 6.9. NOTIFIED DR. SIFUENTES WHO GAVE ORDERS SEE ORDERS AND EMAR. PT HAD 400 MLS DARK BROWN OUTPUT OUT OF NG. MINIMAL OUTPUT. WILL GIVE REPORT TO ONCOMING RN.
--- NOTE | 2021-11-30 07:46 | NUR ---
CARE OF PT ASSUMED AT 0700, BEDSIDE REPORT TAKEN. PT AWAKE, MOANING. RESP LABORED 30'S. PT ON AIRVO 40L/50%, SATS 97-100%. LUNGS CLEAR, DIMINISHED TO BASES. DULCE MARIA WAS STARTED THIS AM AND LEVOPHED WAS STOPPED. DULCE MARIA AT 60MCG THIS AM AND TITRATED UP TO 80MCG TO KEEP MAP>65. HEART RATE 120-130'S, SINUS WITH FREQ. PVC'S. PT STATES SHE IS NOT IN MUCH PAIN, AND SAYS SHE'S MOANING BECAUSE "IM WEARING OUT". PT DENIES ABD PAIN/NAUSEA, DOES GRIMACE W ABD PALP. C/O MILD PAIN TO NECK, SHOULDERS, BACK, AND BOTTOM. PROTONIX GTT INFUSING. DARK GREEN NG OUTPUT, NG TO CONT LOW SX. I UNIT PRBC ORDERED, TO BE GIVEN W HD THIS AM PER DR NGUYEN. DR NGUYEN AT BEDSIDE AND UPDATED PT'S DAUGHTER SEBASTIAN BY PHONE. WILL UPDATE DR CROWELL SHORTLY.
--- NOTE | 2021-11-30 08:06 | NUR ---
DR CROWELL CALLED AND GIVEN FULL UPDATE. STAT CHEST AND ABD XRAY ORDERED.
--- NOTE | 2021-11-30 08:57 | NUR ---
DR NIELSON IN TO SEE PT. DR NGUYEN SPEAKING WITH PT'S CHILDREN AT BEDSIDE. DULCE MARIA UP TO 120MCG.
--- NOTE | 2021-11-30 10:33 | NUR ---
DR CROWELL AND DR NGUYEN SPOKE WITH FAMILY TO DISCUSS PLAN AND GIVE UPDATE. NEOSYNEPHINE CHANGED TO DOUBLE STRENGTH. HD IS RUNNING; PLAN IS TO TAKE OFF 1L TOLERATED. BLOOD INFUSING NOW. PT MORE AWAKE, IRRITABLE, DOESNT SEEM TO PROCESS INFORMATION CLEARLY, DOESNT UNDERSTAND SHE IS ON DIALYSIS AND WANTS TO MOVE TO CHAIR.
[2021-11-30 13:26] LABS: Hematocrit 26.9 % (33.0-51.0); Hemoglobin 8.8 g/dL (11.5-16.0)
[2021-11-30 13:54] LABS: Vancomycin, Random 3.2 ug/mL
--- NOTE | 2021-11-30 16:25 | NUR ---
PT VIDA HD WELL, 1L REMOVED. AIRVO 30L/40%, SATS >90%. NEOSYNEPHINE AT 140MCG. MAG INFUSING, REPEAT MAG ORDERED FOR 1999. FULL BED BATH/CHG BATH GIVEN. 1MG MS GIVEN FOR GENERALIZED PAIN T/O. SPEECH IN TO SEE PT, NOT EVALUATED TODAY D/T LARGE NG OUTPUT; DR CROWELL AND SPEECH TX SPOKE. NO ICE CHIPS/THIN LIQUIDS PER SPEECH.
[2021-11-30 17:48] LABS: Hematocrit 23.1 % (33.0-51.0); Hemoglobin 7.7 g/dL (11.5-16.0)
[2021-12-01 01:17] LABS: Hematocrit 22.8 % (33.0-51.0); Hemoglobin 7.5 g/dL (11.5-16.0)
--- NOTE | 2021-12-01 04:58 | NUR ---
END OF SHIFT SUMMARY PT DID DESAT OVERNIGHT FIO2 WAS INCREASED TO 60% AND 45 L VIA AIRVO. PT TITRATED DOWN TO 100 OF DULCE MARIA FROM 140. RECTAL TUBE PLACED FOR WATER/MUCOUSY STOOL. PT BOTTOM WAS VERY RED AND SHE IS HIGH RISK FOR FUTHER BREAK DOWN. WILL CONTINUE TO MONITOR AND WILL GIVE BEDSIDE REPORT TO ONCOMING RN.
[2021-12-01 06:07] LABS: Hematocrit 22.8 % (33.0-51.0); Hemoglobin 7.4 g/dL (11.5-16.0); Mean Corpuscular HGB 27.7 pg (26.0-34.0); Mean Corpuscular HGB Conc 32.5 g/dL (31.5-36.5); Mean Corpuscular Volume 85 fL (80-100); Mean Platelet Volume 11.3 fL (9.1-12.4); Platelet Count 83 K/mm3 (150-400); RDW Coefficient Variation 17.7 % (11.7-14.2); RDW Standard Deviation 55.3 fL (35.1-46.3); Red Blood Cell Count 2.67 M/mm3 (3.80-5.20); White Blood Cell Count 11.75 K/mm3 (4.00-11.30)
[2021-12-01 06:19] LABS: Albumin, Blood 1.2 g/dL (3.4-5.0); Anion Gap 9 mmol/L (6-16); Blood Urea Nitrogen 50 mg/dL (8-24); Bun/Creatinine Ratio 26.7 (12.0-20.0); CO2, Blood 28 mmol/L (21-32); Calcium, Blood 8.7 mg/dL (8.5-10.1); Chloride, Blood 99 mmol/L (98-108); Creatinine, Blood 1.87 mg/dL (0.40-1.00); Glomerular Filtration Rate 27 (60-); Glucose, Blood 120 mg/dL (70-99); Magnesium, Blood 2.5 mg/dL (1.6-2.4); Phosphorus, Blood 2.6 mg/dL (2.5-4.9); Potassium, Blood 3.8 mmol/L (3.5-5.5); Sodium, Blood 136 mmol/L (136-145); Triglycerides 110 mg/dL (30-160)
[2021-12-01 06:47] LABS: BAND PERCENT MAN 37 % (0-8); BASOPHILS PERCENT MAN 0 % (0-2); EOSINOPHILS ABSOLUTE MAN 0.35 K/mm3 (0.00-0.68); EOSINOPHILS PERCENT MAN 3 % (0-6); LYMPHOCYTES ABSOLUTE MAN 0.11 K/mm3 (0.84-5.20); LYMPHOCYTES PERCENT MAN 1 % (21-46); METAMYELOCYTE ABSOLUTE MAN 0.23 K/mm3 (0.00-0.00); METAMYELOCYTE PERCENT MAN 2 % (0-0); MONOCYTES ABSOLUTE MAN 0.35 K/mm3 (0.16-1.47); MONOCYTES PERCENT MAN 3 % (4-13); MYELOCYTE ABSOLUTE MAN 0.82 K/mm3 (0.00-0.00); MYELOCYTE PERCENT MAN 7 % (0-0); NEUTROPHILS ABSOLUTE MAN 9.87 K/mm3 (1.96-9.15); SEG NEUTROPHILS PERCENT MAN 47 % (41-73); TOTAL CELLS COUNTED 100
--- NOTE | 2021-12-01 08:58 | NUR ---
CARE OF PT ASSUMED AT 0700. PT SLEEPING, AWAKENS TO VOICE, ORIENTED BUT FORGETFUL. AIRVO 45L/60%, PT DENIES SOB. NEOSYNEPHINE AT 110MCG TO KEEP MAP >65. PT INITIALLY DENIED PAIN BUT THEN C/O LOWER ABD BURNING/CRAMPING. NG TO LIS WITH MODERATE AMT OF DARK GREEN OUTPUT. PT MORE DROWSY TODAY OVERALL. RECTAL TUBE DRAINING LIQUID BROWN STOOL.
--- NOTE | 2021-12-01 10:46 | NUR ---
NEOSYNEPHRINE DOWN TO 40MCG. NG CLAMPED PER DR CROWELL. DR CROWELL AND DR NGUYEN AT BEDSIDE, FULL UPDATE GIVEN. PT TO REMAIN NPO FOR NOW.
--- NOTE | 2021-12-01 12:25 | NUR ---
PT OOB TO CHAIR USING LIFT. DULCE MARIA TITRATED DOWN TO 30MCG. CHG BATH COMPLETE.
--- NOTE | 2021-12-01 15:25 | NUR ---
AIRVO TITRATED DOWN TO 20L/40% BY DR CROWELL. DULCE MARIA JUST PLACED ON STANDBY FROM 20MCG. PT REMAINS UP IN CHAIR. PALLIATIVE CARE SPEAKING W PT NOW.
--- NOTE | 2021-12-01 18:31 | NUR ---
AIRVO 10L/30%, SATS >90%, PT DENIES SOB. NEOSYNEPHINE REMAINS OFF, MAP >65. PT UP IN CHAIR, DOES NOT WANT TO GO BACK TO BED; SPENDS ALL HER TIME UP IN CHAIR AT HOME, SLEEPS IN CAHIR AT HOME. HIPS SHIFTED Q 2. LEGS RAISED AND LOWERED Q2. NG PLACED TO SX; NO OUTPUT, DR CROWELL NOTIFIED. CLAMPED AGAIN PER DR CROWELL. RN TO CHECK AGAIN AT 2300. PT MEDICATED FOR PAIN W 1MG MS X2 THIS SHIFT. PAIN GENERALIZED T/O.
[2021-12-02 03:42] LABS: Hematocrit 21.8 % (33.0-51.0); Hemoglobin 6.7 g/dL (11.5-16.0); Mean Corpuscular HGB 26.8 pg (26.0-34.0); Mean Corpuscular HGB Conc 30.7 g/dL (31.5-36.5); Mean Corpuscular Volume 87 fL (80-100); Platelet Count 74 K/mm3 (150-400); RDW Coefficient Variation 17.8 % (11.7-14.2); White Blood Cell Count 9.59 K/mm3 (4.00-11.30)
[2021-12-02 03:56] LABS: Mean Platelet Volume 12.9 fL (9.1-12.4)
[2021-12-02 04:09] LABS: Magnesium, Blood 2.7 mg/dL (1.6-2.4); Phosphorus, Blood 3.9 mg/dL (2.5-4.9)
--- NOTE | 2021-12-02 04:20 | NUR ---
DR. CROWELL AT BEDSIDE NOTIFIED HIM OF HGB AT 6.7 OK TO TRANSFUSE 1 UNIT OF PRBC WITH DIALYSIS.
--- NOTE | 2021-12-02 04:59 | NUR ---
END OF SHIFT SUMMARY PT DOWN TO 3 LITERS NC. REFUSED TO GET OUT OF RECLINER BUT TOLERATED FREQUENT POSITION CHANGES BY STAFF TO ALLEVIATE PRESSURE TO PRESSURE POINTS. PT HGB 6.7 GOOD TO TRANSFURE 1 UNIT PRBC WITH DIALYSIS TODAY. MONITORED RESIDUALS OVERNIGHT 20 MLS WAS THE MOST OUT OF NG. BP STABLE OVERNIGHT OFF DULCE MARIA. WILL GIVE BEDSIDE REPORT TO ONCOMING RN.
--- NOTE | 2021-12-02 07:30 | NUR ---
SHIFT ASSESSMENT ASSUMED CARE OF PT @ 0700. PT ALERT AND ORIENTED, SITTING UPRIGHT IN BEDSIDE CHAIR, PT REFUSING TO MOVE TO BED. FREQUENT TURNS WITH PT IN CHAIR. PT ON 5LPM O2 VIA NC c SATS >90%. OGT CLAMPED. TEMP PROBE JAIMES WITH SMALL AMNT OF LIGHT URINE OUT. RECTAL TUBE DRAINING LIQUID STOOL. WILL MONITOR CLOSELY.
[2021-12-02 09:09] LABS: Albumin, Blood 1.6 g/dL (3.4-5.0); Anion Gap 12 mmol/L (6-16); Blood Urea Nitrogen 73 mg/dL (8-24); Bun/Creatinine Ratio 30.4 (12.0-20.0); CO2, Blood 25 mmol/L (21-32); Calcium, Blood 9.1 mg/dL (8.5-10.1); Chloride, Blood 99 mmol/L (98-108); Glomerular Filtration Rate 20 (60-); Glucose, Blood 112 mg/dL (70-99); Phosphorus, Blood 3.9 mg/dL (2.5-4.9); Sodium, Blood 136 mmol/L (136-145)
[2021-12-02 13:05] LABS: Vancomycin, Random 12.6 ug/mL
--- NOTE | 2021-12-02 18:13 | NUR ---
SHIFT SUMMARY PT ALERT AND ORIENTED, FOLLOWING ALL COMMANDS. CHATTING WITH FAMILY DURING THE DAY, NO CONFUSION NOTED. PT REMAINS WEAK, WORKED WITH O/T TODAY. O2 REQUIREMENTS RANGING FROM 4-6LPM VIA NC c SATS >90%. OGT TO LIS. RECTAL TUBE DRAINING LIQUID STOOL. TEMP PROBE JAIMES DRAINING LIGHT YELLOW URINE. HD PERFORMED TODAY, 1-UNIT PRBC'S ADMINSTERED DURING DIALYSIS. 1-L PULLED DURING HD. VSS T/O DAY. TX TO BED THIS AFTERNOON, PT DOES NOT WANT TO BE IN BED BUT WITH RECTAL TUBE, ADEQUATE SKIN CARE IS DIFFICULT. PT CURRENTLY TOLERATING BED. FULL BEDBATH/ LINEN CHANGE. PT CHANGED TO PCU STATUS, AWAITING ROOM.
[2021-12-03 04:19] LABS: Hematocrit 22.8 % (33.0-51.0); Hemoglobin 7.7 g/dL (11.5-16.0); Mean Corpuscular HGB 29.5 pg (26.0-34.0); Mean Corpuscular HGB Conc 33.8 g/dL (31.5-36.5); Mean Corpuscular Volume 87 fL (80-100); Platelet Count 70 K/mm3 (150-400); RDW Coefficient Variation 17.5 % (11.7-14.2); RDW Standard Deviation 56.8 fL (35.1-46.3); Red Blood Cell Count 2.61 M/mm3 (3.80-5.20); White Blood Cell Count 13.67 K/mm3 (4.00-11.30)
[2021-12-03 06:19] LABS: Albumin, Blood 1.3 g/dL (3.4-5.0); Anion Gap 13 mmol/L (6-16); Blood Urea Nitrogen 54 mg/dL (8-24); Bun/Creatinine Ratio 28.3 (12.0-20.0); CO2, Blood 26 mmol/L (21-32); Calcium, Blood 8.7 mg/dL (8.5-10.1); Chloride, Blood 96 mmol/L (98-108); Creatinine, Blood 1.91 mg/dL (0.40-1.00); Glomerular Filtration Rate 27 (60-); Glucose, Blood 441 mg/dL (70-99); Phosphorus, Blood 3.8 mg/dL (2.5-4.9); Potassium, Blood 4.6 mmol/L (3.5-5.5); Sodium, Blood 135 mmol/L (136-145)
--- NOTE | 2021-12-03 06:36 | NUR ---
PATIENT REQUESTING WATER ALL NIGHT. ABLE TO TOLERATE SMALL ICE CUBES. NO REMARKABLE EVENTS OVERNIGHT.
--- NOTE | 2021-12-03 07:00 | NUR ---
ASSUME CARE: I have assumed care of this patient.
--- NOTE | 2021-12-03 18:07 | NUR ---
SHIFT SUMMARY: NEURO: pt awake and alert. oriented to self, place, and situation. moves all extremities. CARDIAC: sinus arrythmia. Pt with episodes of elevated HR into 140's, but quickly resolves. BP's stable. RESIRATORY: dim on 5L NC GI/: NG tube inplace and clamped. Pt tolerating meals well today. 800mls out of rectal tube with two BM in bed that leaked around tube. oliguria. SKIN: new photo taken of coccyx area. significant excoriation of beckie area noted PSYCH/SOCIAL: pt family at bedside to visit for a short time this afternoon.
[2021-12-03 20:40] LABS: Base Excess Venous 0.4 mmol/L; Bicarbonate Venous 24.2 mmol/L (24.0-30.0); PCO2 Venous 49.3 mmHg (38-42); pH Blood Venous 7.34 (7.34-7.37)
[2021-12-04 04:13] LABS: Albumin, Blood 1.3 g/dL (3.4-5.0); Anion Gap 12 mmol/L (6-16); Blood Urea Nitrogen 78 mg/dL (8-24); Bun/Creatinine Ratio 28.1 (12.0-20.0); CO2, Blood 27 mmol/L (21-32); Calcium, Blood 9.1 mg/dL (8.5-10.1); Chloride, Blood 98 mmol/L (98-108); Creatinine, Blood 2.78 mg/dL (0.40-1.00); Glomerular Filtration Rate 17 (60-); Glucose, Blood 138 mg/dL (70-99); Phosphorus, Blood 3.4 mg/dL (2.5-4.9); Potassium, Blood 3.8 mmol/L (3.5-5.5); Sodium, Blood 137 mmol/L (136-145)
--- NOTE | 2021-12-04 04:40 | NUR ---
ASSUMED CARE: PT CAME TO ICU VIA BED ON 6L NC AND CPN AT 51ML/HR TO LEFT ARM PICC. PT ALERT AND MUMBLES TO ANSWER. LEVO STARTED.
--- NOTE | 2021-12-04 04:50 | NUR ---
PT BEGAN HAVING LOWER BPS AT TIME OF MORNING VITALS. DR PRECIADO WAS CONTACTED REGARDING BP OF 73/42 WITH MAP OF 53. PT WAS GIVEN A 250 LR BOLUS AND 5 MG OF ORAL MIDODRINE. HER BP REMAINED LOW AT 85/39 WITH MAP OF 54. PT WAS TRANSFERRED TO ICU FOR BP MANAGEMENT. PT STILL ALERT AND ORIENTED, BUT MORE DROWSY. SHE DENIES DIZZINESS OR CHEST PAIN. SHE CONTINUES TO COMPLAIN OF PAIN IN HER FEET BUT IS REFUSING COMPRESSION STOCKINGS AND BP TOO LOW FOR PAIN MEDICATION. PT MADE AWARE OF THIS. PT TRANSPORTED TO ICU 5 BY TWO RNS.
--- NOTE | 2021-12-04 04:55 | NUR ---
ALLERGY AND IMMUNOLOGY CHIEF SUMMARY ASSUMED CARE OF PT AT 1900. SHE HAD INCREASED WORK OF BREATHING WITH TACHYPNEA AND ACCESSORY MUSCLE USE DESPITE SATURATIONS OF >90% ON 5L BY NC. DR PRECIADO WAS CALLED TO THE BEDSIDE AND RECOMMENDED BIPAP FOR PT COMFORT. SHE HAS NG TUBE IN PLACE WITH MINIMAL OUTPUT. RECTAL TUBE IN PLACE WITH GOOD OUTPUT. JAIMES ALSO IN PLACE AND PATENT BUT PT WITH CHRONIC KIDNEY DISEASE AND DECREASED OUTPUT. PT WAS GIVEN 40 MG OF IV LASIX. PT CONTINUED TO COMPLAIN OF BEING THIRSTY SO WAS GIVEN A FEW SPOONFULS OF THICKENED WATER INTERMITTENTLY. SHE HAS A LARGE AREA OF BREAKDOWN TO HER COCCYX AND BUTTOCKS THAT CAUSE HER PAIN ALONG WITH 3+ PITTING EDEMA TO BUE AND BLE CAUSING PAIN. PT MEDICATED X2 FOR PAIN. BP HAS REMAINED IN THE LOWER 100S SYSTOLIC UNTIL THIS AM WHEN SHE DROPPED TO 73/42 (SEE OTHER RN NOTE). PT HAD A FEVER OF 102.1 EARLIER IN THE SHIFT AND WAS GIVEN PO 650 TYLENOL WITH IMPROVEMENT. PT REFUSED PUTTING THE BIPAP MASK BACK ON AROUND 0100 THIS MORNING AND HAS REMAINED ON HIGH FLOW NC AT 5L. PT CARE TRANSFERED TO ICU NURSE THIS MORNING WHEN BP IS NO LONGER MANAGEABLE IN PCU.
--- NOTE | 2021-12-04 05:05 | NUR ---
ATTEMPTED TO CONTACT PT SISTER OLEG AT [phone] ABOUT PT TRANSFER. THIS RN CALLED THE NUMBER TWICE WITH MESSAGE SAYING THAT THE NUMBER IS DISCONNECTED.
--- NOTE | 2021-12-04 05:26 | NUR ---
THIS RN WAS ABLE TO CONTACT PT'S SISTER OLEG AT HER HOME NUMBER OF [phone] AND SHE IS AWARE OF PT'S TRANSFER BACK TO ICU.
[2021-12-04 07:40] LABS: Hematocrit 26.3 % (33.0-51.0); Hemoglobin 8.4 g/dL (11.5-16.0); Mean Corpuscular HGB 27.9 pg (26.0-34.0); Mean Corpuscular HGB Conc 31.9 g/dL (31.5-36.5); Mean Corpuscular Volume 87 fL (80-100); Platelet Count 82 K/mm3 (150-400); RDW Coefficient Variation 17.7 % (11.7-14.2); RDW Standard Deviation 56.9 fL (35.1-46.3); Red Blood Cell Count 3.01 M/mm3 (3.80-5.20); White Blood Cell Count 28.02 K/mm3 (4.00-11.30)
[2021-12-04 08:31] LABS: BAND PERCENT MAN 39 % (0-8); BASOPHILS PERCENT MAN 0 % (0-2); EOSINOPHILS ABSOLUTE MAN 0.28 K/mm3 (0.00-0.68); EOSINOPHILS PERCENT MAN 1 % (0-6); METAMYELOCYTE ABSOLUTE MAN 0.84 K/mm3 (0.00-0.00); METAMYELOCYTE PERCENT MAN 3 % (0-0); MONOCYTES ABSOLUTE MAN 0.84 K/mm3 (0.16-1.47); MONOCYTES PERCENT MAN 3 % (4-13); MYELOCYTE PERCENT MAN 10 % (0-0); NEUTROPHILS ABSOLUTE MAN 22.97 K/mm3 (1.96-9.15); PROMYELOCYTE ABSOLUTE MAN 0.28 K/mm3 (0.00-0.00); PROMYELOCYTE PERCENT MAN 1 % (0-0); SEG NEUTROPHILS PERCENT MAN 43 % (41-73); TOTAL CELLS COUNTED 100
--- NOTE | 2021-12-04 09:42 | NUR ---
PT DROWSY, ORIENTED TO SELF. NODS YES WHEN ASKED IF IN HOSPITAL AND [place]. ASKS FOR "ICE WATER", PROVIDED MOUTH SWABS. HAS NG TUBE TO LIS. KEEPING NPO DUE TO DROWSINESS. PT GETTING DIALYSIS NOW.
--- NOTE | 2021-12-04 15:30 | NUR ---
PT TRANSITIONED TO COMFORT CARE TODAY. PT IS ORIENTED TO SELF AND PLACE. MORE INTERACTIVE THIS AFTERNOON. GOT DIALYSIS TODAY. PT WANTED TO GO OUTSIDE SO AFTER COMFORT CARE WAS INITIATED DISCONNECTED PT FROM EVERYTHING EXCEPT O2 AND GOT PT TO RECLINER CHAIR WITH THE LIFT. PT WHEELED OUTSIDE BY KEY RINGER AND ACCOMPANIED BY FAMILY. PAIN MEDS GIVEN FOR BACK PAIN. NO SIGN OF DISTRESS SHE IS WHEELED OUTSIDE, KEY RINGER STAYING WITH PT AND ANGIE VALERIO ACCOMPANIES WELL.
--- NOTE | 2021-12-04 16:52 | NUR ---
PT PEACEFULLY OUTSIDE NEXT TO THE [place] IN A RECLINER SURROUNDED BY FAMILY. PT BROUGHT BACK IN AND POST MORTEM CARE PERFORMED. FAMILY WANTS PT TO GO TO [facility] HOME. FAMILY TOOK ALL BELONGINGS IN THE ROOM.
== END 2021-12-04 16:52 | DRG 871 ==
LOC: ER 15:08 → ICUE 15:09 → ERHOLD 15:09 → ICUE 22:31 → PCU 11-21 01:02 → ICUE 11-22 06:30 → PCU 12-03 19:01 → ICUE 12-04 04:39
PROVIDERS: Emergency Medicine; Family Medicine; Internal Medicine; Internal Medicine Critical Care Medicine; Internal Medicine Nephrology; ADMIT Internal Medicine
PROC: 3E03329 Introduction of Other Anti-infective into Peripheral Vein, Percutaneous Approach (ICD-10-PCS; principal; 2021-11-13)
PROC: 3E033XZ Introduction of Vasopressor into Peripheral Vein, Percutaneous Approach (ICD-10-PCS; 2021-11-13)
PROC: 5A1945Z Respiratory Ventilation, 24-96 Consecutive Hours (ICD-10-PCS; 2021-11-13)
PROC: 0BH17EZ Insertion of Endotracheal Airway into Trachea, Via Natural or Artificial Opening (ICD-10-PCS; 2021-11-13)
PROC: 0JH63XZ Insertion of Tunneled Vascular Access Device into Chest Subcutaneous Tissue and Fascia, Percutaneous Approach (ICD-10-PCS; 2021-11-14)
PROC: 02HV33Z Insertion of Infusion Device into Superior Vena Cava, Percutaneous Approach (ICD-10-PCS; 2021-11-14)
PROC: 5A1D70Z Performance of Urinary Filtration, Intermittent, Less than 6 Hours Per Day (ICD-10-PCS; 2021-11-14)
DX: A41.9 Sepsis, unspecified organism (principal); J18.9 Pneumonia, unspecified organism; J96.02 Acute respiratory failure with hypercapnia; R65.21 Severe sepsis with septic shock; J96.21 Acute and chronic respiratory failure with hypoxia; N17.9 Acute kidney failure, unspecified; K92.0 Hematemesis; K56.7 Ileus, unspecified; J44.0 Chronic obstructive pulmonary disease with (acute) lower respiratory infection; Z51.5 Encounter for palliative care; Z20.822 Contact with and (suspected) exposure to COVID-19; N18.30 Chronic kidney disease, stage 3 unspecified; K21.9 Gastro-esophageal reflux disease without esophagitis; I12.9 Hypertensive chronic kidney disease with stage 1 through stage 4 chronic kidney disease, or unspecified chronic kidney disease; M79.7 Fibromyalgia; D63.1 Anemia in chronic kidney disease; R34 Anuria and oliguria; J30.9 Allergic rhinitis, unspecified; K52.9 Noninfective gastroenteritis and colitis, unspecified; E87.5 Hyperkalemia; K72.90 Hepatic failure, unspecified without coma; R32 Unspecified urinary incontinence; E03.9 Hypothyroidism, unspecified; M06.9 Rheumatoid arthritis, unspecified; F32.9 Major depressive disorder, single episode, unspecified; D50.9 Iron deficiency anemia, unspecified; Z91.199 Patient's noncompliance with other medical treatment and regimen due to unspecified reason; Z87.19 Personal history of other diseases of the digestive system; Z85.3 Personal history of malignant neoplasm of breast; Z90.11 Acquired absence of right breast and nipple; Z90.89 Acquired absence of other organs; Z98.1 Arthrodesis status; Z88.8 Allergy status to other drugs, medicaments and biological substances; Z91.048 Other nonmedicinal substance allergy status; Z79.51 Long term (current) use of inhaled steroids; Z79.52 Long term (current) use of systemic steroids; Z79.899 Other long term (current) drug therapy
CPT/HCPCS: 31500; 36415; 36430; 36556; 36558; 36569; 36600; 71045; 71260; 74018; 74176; 74177; 74230; 76705; 76937; 77001; 80048; 80053; 80069; 80074; 80076; 80202; 81001; 82248; 82330; 82728; 82803; 82947; 83540; 83550; 83605; 83690; 83735; 84100; 84436; 84443; 84478; 84484; 85014; 85018; 85025; 85027; 85045; 85379; 86317; 86850; 86900; 86901; 86923; 87040; 87070; 87086; 87205; 87426; 87493; 87507; 92526; 92610; 92611; 93005; 93010; 93306; 93308; 93321; 93970; 94002; 94003; 94640; 94660; 94664; 94667; 94668; 94760; 94762; 96361-59; 96365-59; 96366-59; 96367-59; 96375-59; 97110; 97162; 97165; 97168; 97530; 97535; 99152; 99291-25; A9270; C1750; C1751; C1752; C1769; C1894; C9113; C9803; J0282; J0610; J0881; J1170; J1644; J1650; J1720; J1815; J1885; J1940; J2185; J2250; J2270; J2370; J2405; J2543; J2704; J2765; J3010; J3370; J3475; J3480; J7030; J7040; J7050; J7060; J7070; J7120; J7131; P9016; P9047; Q9967